=== PATIENT | female | born 1975 | race Two or more races ===

== ENCOUNTER 2016-04-27 12:25 | Emergency (ER) | payer MEDICAID ==
[~2016-04-27] VITALS: Ht 160 cm; Wt 81.6 kg
[~2016-04-27 12:25] MED LIST: ADVIL100 MG ORAL; ALPRAZOLAM0.5 M2 ORAL; ASPIR 8181 MG ORAL; ATIVAN1 MG ORAL; ATIVAN2 MG PO; ATIVAN4 MG/1 ML IJ; BENADRYL25 MG ORAL; CARDIZEM30 MG ORAL; COLACE100 MG PO; IBUPROFEN600 MG ORAL; KLONOPIN1 MG ORAL; KLONOPIN1 MG PO; LAMICTAL25 MG ORAL; LAMOTRIGINE50 MG ORAL; LORAZEPAM1 MG PO; NORCO 5-325 TA1 EACH ORAL; NORCO 5-325 TA1 EACH PO; ORTHO TRI-CYCL1 EAC1 PO; PRILOSEC10 MG PO; SEROQUEL50 MG ORAL; SERTRALINE HCL25 MG PO; ZONEGRAN100 MG ORAL; [UNRECOGNIZED DRUG - OTHER] PO
[2016-04-27 13:26] LABS: BASOPHILS % (AUTO) 1.1 % (0.0-2.0); EOSINOPHILS % (AUTO) 1.5 % (0.0-3.0); LYMPHOCYTES % (AUTO) 32.1 % (20.0-45.0); MEAN CORPUSCULAR HEMOGLOBIN 29.1 PG (27.0-31.0); MEAN CORPUSCULAR HGB CONC 33.2 G/DL (32.0-36.0); MEAN CORPUSCULAR VOLUME 88 FL (80-99); MEAN PLATELET VOLUME 6.3 FL (6.5-10.1); MONOCYTES % (AUTO) 6.5 % (1.0-10.0); NEUTROPHILS % (AUTO) 58.9 % (45.0-75.0); PLATELET COUNT 273 K/UL (150-450); RED BLOOD COUNT 5.04 M/UL (4.20-5.40); RED CELL DISTRIBUTION WIDTH 12.3 % (11.6-14.8); WHITE BLOOD COUNT 4.9 K/UL (4.8-10.8)
[2016-04-27 13:44] LABS: ALANINE AMINOTRANSFERASE 28 U/L (3-33); ALBUMIN/GLOBULIN RATIO 1.3 (1.0-2.7); ANION GAP 16 (5-15); ASPARTATE AMINO TRANSFERASE 25 U/L (5-40); CALCIUM 9.7 mg/dL (8.6-10.2); CARBON DIOXIDE 23 mEQ/L (20-30); CHLORIDE 101 mEQ/L (98-107); CREATININE 0.8 mg/dL (0.5-0.9); GLOMERULAR FILTRATION RATE > 60 mL/min (>60); HEMOLYSIS 21; POTASSIUM 4.1 mEQ/L (3.4-4.9); SODIUM 140 mEQ/L (135-145); TOTAL PROTEIN 7.3 g/dL (6.6-8.7)
[2016-04-27 13:52] LABS: TROPONIN I < 0.30 ng/mL (<=0.30)
[2016-04-27 14:00] VITALS: BP 105/60
[2016-04-27 14:24] LABS: CKMB 2.3 ng/mL (< 3.8)
--- NOTE | 2016-04-27 14:29 | Diagnostic Imaging Report ---
Indication: Chest Pain Comparison: 06/06/15 A single view chest radiograph was obtained. Findings: Cardiomediastinal appearance is within normal limits for age. Pulmonary vascularity is appropriate. The diaphragmatic contour is smooth and costophrenic angles are sharp. No pleural effusions are identified. The bones are unremarkable. Impression: No acute findings
[2016-04-27] MEDS ORDERED: Ketorolac 30mg Inj IV ONE (14:30)
--- NOTE | 2016-04-27 14:38 | Emergency Room Report ---
History of Present Illness General Chief Complaint: Chest Pain Source: Patient Present Illness HPI Patient presents with several complaints Main complaint was chest pain midsternal and left upper chest Denies any shortness of breath Pain has been ongoing for the past several days off-and-on Patient was also palpating a lymph node in the right neck area Patient also complained of left arm neuropathy Patient had mentioned discomfort in her left breast as well however after further discussion and after prolonged observation patient reports that she had a mammogram her physician that showed a mass however does not have the report of any further information Patient denies any recent travel denies any abdominal pain patient reports history of seizures which she takes Ativan for and lamictal Allergies: Coded Allergies: Dairy (Verified Allergy, Unknown, 12/23/15) MORPHINE (Verified Allergy, Unknown, Itching, 12/22/15) Whole Milk (Verified Allergy, Unknown, 12/23/15) Patient History Past Medical History: see triage record Pertinent Family History: none Last Menstrual Period: 2005--hysterectomy Now: No Reviewed Nursing Documentation: PMH: Agreed, PSxH: Agreed Nursing Documentation-PMH Past Medical History: No History, Except For 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 Hx Hypertension: No Hx Pacemaker: No Hx Asthma: No Hx COPD: No Hx Diabetes: No Hx Cancer: Yes - ovarian Hx Gastrointestinal Problems: No Hx Neurological Problems: Yes - meningitis Hx Cerebrovascular Accident: Yes Hx Meningitis: Yes Hx Seizures: Yes - 12/20/15 Hx Epilepsy: Yes Hx Headaches: Yes Hx Weakness: Yes Review of Systems All Other Systems: negative except mentioned in HPI Physical Exam Vital Signs Date Time Temp Pulse Resp B/P Pulse Ox O2 Delivery O2 Flow Rate FiO2 04/27/16 12:27 97.5 86 18 155/84 98 Room Air Sp02 EP Interpretation: reviewed, normal General Appearance: well appearing, no apparent distress Head: normocephalic, atraumatic Eyes: bilateral eye EOMI, bilateral eye PERRL ENT: hearing grossly normal, normal pharynx, TMs + canals normal, uvula midline Neck: full range of motion, supple, no meningismus, no bony tend Respiratory: lungs clear, normal breath sounds, no rhonchi, no respiratory distress, no retraction, no accessory muscle use Cardiovascular #1: normal peripheral pulses, regular rate, rhythm, no edema, no gallop, no JVD, no murmur Gastrointestinal: normal bowel sounds, non tender, soft, no mass, no organomegaly, non-distended, no guarding, no hernia, no pulsatile mass, no rebound Genitourinary: no CVA tenderness Musculoskeletal: normal inspection Neurologic: oriented x3, responsive, 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, motor strength/ tone normal, sensory intact Psychiatric: mood/affect normal Skin: normal color, no rash, warm/dry Lymphatic: other - Isolated small right posterior cervical lymph node palpable Medical Decision Making Diagnostic Impression: Primary Impression: Chest pain Additional Impression: lymphadenopathy ER Course Patient had fairly extensive workup initiated including blood work and imaging study Chest x-ray was normal blood work is also at baseline levels Patient has several different complaints, thus far with the physical exam and the history no obvious acute emergent process has been identified Please note that at time of discharge the patient also states that she now remembers having a mammogram in the past 6 months on the left breast, that did show a mass she states that she was seen by her physician after this and isn't sure of the specifics followup Patient was having encouraged to obtain the results of a mammogram and have further outpatient referral Patient rested comfortably throughout her stay in the emergency room at the time of disposition as the IV was being removed patient sustained what was documented by the nursing staff as a 20 second possible seizure, Patient does have a history of seizure disorder and is on medications for that Was observed for further until patient was more oriented And allow for discharge for close outpatient followup Labs Test 04/27/16 13:05 White Blood Count 4.9 K/UL (4.8-10.8) Red Blood Count 5.04 M/UL (4.20-5.40) Hemoglobin 14.7 G/DL (12.0-16.0) Hematocrit 44.3 % (37.0-47.0) Mean Corpuscular Volume 88 FL (80-99) Mean Corpuscular Hemoglobin 29.1 PG (27.0-31.0) Mean Corpuscular Hemoglobin Concent 33.2 G/DL (32.0-36.0) Red Cell Distribution Width 12.3 % (11.6-14.8) Platelet Count 273 K/UL (150-450) Mean Platelet Volume 6.3 FL (6.5-10.1) Neutrophils (%) (Auto) 58.9 % (45.0-75.0) Lymphocytes (%) (Auto) 32.1 % (20.0-45.0) Monocytes (%) (Auto) 6.5 % (1.0-10.0) Eosinophils (%) (Auto) 1.5 % (0.0-3.0) Basophils (%) (Auto) 1.1 % (0.0-2.0) Sodium Level 140 mEQ/L (135-145) Potassium Level 4.1 mEQ/L (3.4-4.9) Chloride Level 101 mEQ/L (98-107) Carbon Dioxide Level 23 mEQ/L (20-30) Anion Gap 16 (5-15) Blood Urea Nitrogen 16 mg/dL (7-23) Creatinine 0.8 mg/dL (0.5-0.9) Estimat Glomerular Filtration Rate > 60 mL/min (>60) Glucose Level 96 mg/dL (74-106) Calcium Level 9.7 mg/dL (8.6-10.2) Total Bilirubin 0.3 mg/dL (0.0-1.2) Aspartate Amino Transf (AST/SGOT) 25 U/L (5-40) Alanine Aminotransferase (ALT/SGPT) 28 U/L (3-33) Alkaline Phosphatase 128 U/L (35-104) Total Creatine Kinase 97 U/L (26-140) Creatine Kinase MB 2.3 ng/mL (< 3.8) Creatine Kinase MB Relative Index 2.3 Troponin I < 0.30 ng/mL (<=0.30) Pro-B-Type Natriuretic Peptide 35 pg/mL (0-125) Total Protein 7.3 g/dL (6.6-8.7) Albumin 4.2 g/dL (3.5-5.2) Globulin 3.1 g/dL Albumin/Globulin Ratio 1.3 (1.0-2.7) EKG Diagnostic Results Rate: normal Rhythm: NSR ST Segments: no acute changes Rhythm Strip Diag. Results EP Interpretation: yes Rate: 74 Rhythm: NSR, no PVC's, no ectopy Chest X-Ray Diagnostic Results EP Interpretation: Yes Findings: no consolidation, no effusion, no pneumothorax Number of Views: 1 Last Vital Signs Date Time Temp Pulse Resp B/P Pulse Ox O2 Delivery O2 Flow Rate FiO2 04/27/16 14:00 67 16 105/60 100 Room Air 04/27/16 12:27 97.5 Status: improved Disposition: HOME, SELF-CARE Condition: Improved Referrals: [facility]ERR[facility] (PCP) Patient Instructions: Nonspecific Chest Pain, Lymphadenopathy Additional Instructions: Patient is provided with the discharge instructions notified to follow up with primary doctor in the next 2-3 days otherwise return to the er with any worsening symptoms. DIANDRA PEDERSEN D.O. Apr 27, 2016 14:38
[2016-04-27 15:40] VITALS: BP 118/71
[2016-04-27 16:30] VITALS: BP 118/71
--- NOTE | 2016-05-25 15:21 | Cardiology Report ---
APPROVED REPORT EKG Measurement Heart [id number] Normal sinus rhythm Possible Anterior infarct, age undetermined Abnormal ECG
== END 2016-04-27 16:30 | disposition home or self-care (01) ==
LOC: EMR 13:20
DX: R07.9 Chest pain, unspecified (principal); R59.1 Generalized enlarged lymph nodes; G40.909 Epilepsy, unspecified, not intractable, without status epilepticus; Z86.61 Personal history of infections of the central nervous system; Z86.73 Personal history of transient ischemic attack (TIA), and cerebral infarction without residual deficits; Z90.710 Acquired absence of both cervix and uterus; Z88.6 Allergy status to analgesic agent; Z91.011 Allergy to milk products
CPT/HCPCS: 36415; 71010; 80053; 82550; 82553; 82962; 83880; 84484; 85025; 93005; 96374; 99284; J1885

== ENCOUNTER 2016-12-24 21:57 | Emergency (ER) | payer MEDICAID ==
[~2016-12-24] VITALS: Ht 162.6 cm; Wt 75.3 kg
[2016-12-24 22:35] VITALS: BP 130/79
[2016-12-24 23:00] VITALS: BP 135/80
[2016-12-24] MEDS ORDERED: GABAPENTIN600 MG ORAL (23:05)
[2016-12-24 23:15] VITALS: BP 135/80
--- NOTE | 2016-12-25 00:30 | Emergency Room Report ---
History of Present Illness General Chief Complaint: Pain Source: Patient Present Illness HPI [id number] with 1 week foot progressed to leg pain/"pins and needles." No trauma No history of gout, DVT History of seizures Saw neurologist yesterday, prescribed Neurontin. Pharmacist didnt fill it because "its for seizures." So didnt fill it. 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 Hx Hypertension: No Hx Pacemaker: No Hx Asthma: No Hx COPD: No Hx Diabetes: No Hx Cancer: Yes - ovarian,TOTAL HYSTERECTOMY IN 2005 Hx Gastrointestinal Problems: No Hx Neurological Problems: Yes - meningitis Hx Cerebrovascular Accident: Yes Hx Meningitis: Yes Hx Seizures: Yes - 12/20/15 Hx Epilepsy: Yes Hx Headaches: Yes Hx Weakness: Yes Review of Systems All Other Systems: negative except mentioned in HPI Physical Exam Vital Signs Date Time Temp Pulse Resp B/P (MAP) Pulse Ox O2 Delivery O2 Flow Rate FiO2 12/24/16 22:19 97.3 82 16 122/84 99 Room Air Sp02 EP Interpretation: reviewed, normal General Appearance: normal inspection, well appearing, no apparent distress, alert Head: atraumatic ENT: normal ENT inspection, hearing grossly normal, normal voice Neck: normal inspection, full range of motion, supple, no bony tend Respiratory: normal inspection, lungs clear, normal breath sounds, no respiratory distress, no retraction, no wheezing Cardiovascular #1: regular rate, rhythm, no edema Gastrointestinal: normal inspection, normal bowel sounds, non tender, soft, no guarding, no hernia Genitourinary: no CVA tenderness Musculoskeletal: normal inspection, back normal, normal range of motion, Brittany' s Sign negative Neurologic: normal inspection, alert, oriented x3, responsive, 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 Afebrile. Atraumatic Glucose 115 Likely neuropathy given "pins and needles", progressive sharp pain No obvious focal neuro deficits to suggest subacute or acute CVA No calf swelling to suggest DVT/PE Rx Gabapentin DC home Last Vital Signs Date Time Temp Pulse Resp B/P (MAP) Pulse Ox O2 Delivery O2 Flow Rate FiO2 12/24/16 23:15 98.0 80 19 135/80 99 Room Air Status: improved Disposition: HOME, SELF-CARE Condition: Improved Scripts Gabapentin* (GABAPENTIN*) 600 Mg Tablet 600 MG ORAL THREE TIMES A DAY for 30 Days, #90 TAB Prov: LYNETTE WEEMS M.D. 12/24/16 Referrals: [facility]ERR[facility] (PCP) Patient Instructions: Neuropathic Pain Additional Instructions: - Take Gabapentin as prescribed and followup with your doctor for right leg pain LYNETTE WEEMS M.D. Dec 25, 2016 00:30
== END 2016-12-24 23:15 | disposition home or self-care (01) ==
LOC: EMR 22:23
DX: G62.9 Polyneuropathy, unspecified (principal); Z85.43 Personal history of malignant neoplasm of ovary; Z90.710 Acquired absence of both cervix and uterus; Z86.73 Personal history of transient ischemic attack (TIA), and cerebral infarction without residual deficits; Z86.61 Personal history of infections of the central nervous system
CPT/HCPCS: 82962; 99283

== ENCOUNTER 2016-12-28 06:23 | Inpatient (IN) | payer MEDICAID ==
[~2016-12-28] VITALS: Ht 162.6 cm; Wt 75.7 kg
[2016-12-28] VITALS (9 sets, daily range): BP systolic 125–143; BP diastolic 61–119
[~2016-12-28 06:23] MED LIST changes: +GABAPENTIN600 MG ORAL
[2016-12-28 07:59] LABS: BASOPHILS % (AUTO) 0.9 % (0.0-2.0); EOSINOPHILS % (AUTO) 1.4 % (0.0-3.0); LYMPHOCYTES % (AUTO) 26.5 % (20.0-45.0); MEAN CORPUSCULAR HGB CONC 33.6 G/DL (32.0-36.0); MEAN CORPUSCULAR VOLUME 89 FL (80-99); MEAN PLATELET VOLUME 6.1 FL (6.5-10.1); MONOCYTES % (AUTO) 5.2 % (1.0-10.0); NEUTROPHILS % (AUTO) 66.1 % (45.0-75.0); PLATELET COUNT 284 K/UL (150-450); RED BLOOD COUNT 4.88 M/UL (4.20-5.40); WHITE BLOOD COUNT 4.9 K/UL (4.8-10.8)
[2016-12-28] MEDS ORDERED: Lidocaine 1% MPF 10mg/ml 5ml ONE (08:00)
[2016-12-28 08:09] LABS: PROTHROMBIN TIME 10.4 SEC (9.30-11.50)
[2016-12-28 08:17] LABS: ALANINE AMINOTRANSFERASE 26 U/L (3-33); ALBUMIN/GLOBULIN RATIO 1.5 (1.0-2.7); ANION GAP 12 (5-15); ASPARTATE AMINO TRANSFERASE 22 U/L (5-40); CALCIUM 9.2 mg/dL (8.6-10.2); CARBON DIOXIDE 26 mEQ/L (20-30); CHLORIDE 103 mEQ/L (98-107); CHOLESTEROL 141 mg/dL (< 200); CHOLESTEROL/HDL RATIO 2.8 (3.3-4.4); CREATININE 0.8 mg/dL (0.5-0.9); GLOMERULAR FILTRATION RATE > 60 mL/min (>60); HEMOLYSIS 3; LDL CHOLESTEROL CALC 75 mg/dL (60-99); POTASSIUM 4.9 mEQ/L (3.4-4.9); SODIUM 141 mEQ/L (135-145)
--- NOTE | 2016-12-28 09:32 | Diagnostic Imaging Report ---
Indications: Headache and left-sided weakness Technique: Spiral acquisitions obtained through the brain. Angled axial and coronal 5 x 5 mm slices were reconstructed. Total dose length product 1369 mGycm. CTDI vol(s) 70 mGy. Dose reduction achieved using automated exposure control Comparison: 12/20/2015 Findings: Again demonstrated is a calcification at the left posterior frontal bullock-white junction. A second calcification is seen probably within the left temporal cortex but could be immediately adjacent, within the dura.. No acute hemorrhage or edema. No mass effect or midline shift. Normal sized ventricles and extra-axial CSF spaces. The calvarium is intact. Visualized orbits and sinuses are unremarkable. 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 The CT scanner at [facility] is accredited by the [employer] and the scans are performed using protocols designed to limit radiation exposure to as low as reasonably achievable to attain images of sufficient resolution adequate for diagnostic evaluation.
--- NOTE | 2016-12-28 10:50 | Diagnostic Imaging Report ---
Indication: Left-sided weakness, history of seizures Technique: IV administration nonionic contrast. Arterial phase acquisitions obtained through the brain. Delayed phase images gated not be obtained, as patient developed seizures during the exam Multiplanar and 3-D reconstructions were generated. Total dose length product 1310 mGycm. CTDIvol(s) 16, 148, 54 mGy. Radiation dose was minimized using automated exposure control Comparison: Reference made to noncontrast CT brain 3 hours earlier Findings: Dominant right, smaller caliber left vertebral artery demonstrated. These are both patent, nonstenotic. Patent and nonstenotic bilateral PICA. The distal right PICA is somewhat prominent in caliber, and at the level of the cerebellar vermis is actually larger in caliber than it is proximally. Both AICA origins are visualized. Patent nonstenotic basilar artery. Patent nonstenotic bilateral superior cerebellar arteries. Absent right P1 segment, origin of the right posterior cerebral artery is demonstrated. This is patent, as are the proximal branches. Patent nonstenotic left P1 and proximal branches. Patent left posterior communicating artery. The bilateral internal carotid arteries are patent, without significant plaque or stenosis. Patent nonstenotic bilateral A1 segments and proximal anterior cerebral artery branch vessels. No anterior communicating artery is demonstrated. Patent bilateral M1 segments and proximal middle cerebral artery branches. No evidence of vascular malformation. No evidence of aneurysm. Patent deep and superficial veins and venous sinuses. There is variant anatomy of the superior sagittal sinus, which courses laterally well cephalad of the torcular Herophili, and drains directly into the sigmoid sinus. Neither transverse sinus is demonstrated No unusual parenchymal contrast enhancement is demonstrated. No evidence of hypoperfusion. Impression: Negative for evidence of intracranial proximal cerebrovascular insufficiency Unusually prominent right PICA, with in particular prominent caliber distally. Probably just normal variant anatomy, but the possibility of an occult vascular malformation should be considered Variant [employer] [employer] [place] anatomy, as described Variant venous sinus anatomy, as described Findings discussed by phone with Dr. Medrano in the emergency room at the time of interpretation The CT scanner at [facility] is accredited by the [employer] and the scans are performed using protocols designed to limit radiation exposure to as low as reasonably achievable to attain images of sufficient resolution adequate for diagnostic evaluation.
--- NOTE | 2016-12-28 10:55 | Emergency Room Report ---
History of Present Illness General Chief Complaint: General Complaint Source: Patient, Family Member Present Illness HPI 41-year-old female presents to ED status post seizure. Patient states that she had a seizure early this morning approximately around 3 AM as noted by her daughter. Patient states she only takes Klonopin for seizures now. Patient is stating that since the seizures she is having slurred speech with facial droop and left arm and leg weakness. Symptoms started approximately 3-1/2 hours prior to arrival. Patient notes history of prior CVA. Takes aspirin and statin. Patient denies any headaches, denies any chest pain or shortness of breath. No other aggravating relieving factors. Denies any other associated symptoms Allergies: Coded Allergies: Dairy (Verified Allergy, Unknown, 12/23/15) LEVETIRACETAM (Verified Allergy, Unknown, 12/28/16) MORPHINE (Verified Allergy, Unknown, Itching, 12/22/15) PHENYTOIN (Verified Allergy, Unknown, 12/28/16) Whole Milk (Verified Allergy, Unknown, 12/23/15) Patient History Past Medical History: CVA/TIA, seizures, psych hx Past Surgical History: hysterectomy Pertinent Family History: none Social History: Denies: smoking, alcohol use, drug use Last Menstrual Period: 2005 Now: No : 2 Para: 2 Immunizations: UTD Reviewed Nursing Documentation: PMH: Agreed, PSxH: Agreed Nursing Documentation-PMH 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 Hx Hypertension: No Hx Pacemaker: No Hx Asthma: No Hx COPD: No Hx Diabetes: No Hx Cancer: Yes - ovarian,TOTAL HYSTERECTOMY IN 2005 Hx Gastrointestinal Problems: No Hx Neurological Problems: Yes - meningitis Hx Cerebrovascular Accident: Yes Hx Meningitis: Yes Hx Seizures: Yes - 12/20/15 Hx Epilepsy: Yes Hx Headaches: Yes Hx Weakness: Yes Review of Systems All Other Systems: negative except mentioned in HPI Physical Exam Vital Signs Date Time Temp Pulse Resp B/P (MAP) Pulse Ox O2 Delivery O2 Flow Rate FiO2 12/28/16 06:32 98.1 69 11 125/70 100 Room Air Sp02 EP Interpretation: reviewed, normal General Appearance: no apparent distress, alert, GCS 15, non-toxic Head: normocephalic, atraumatic Eyes: bilateral eye normal inspection, bilateral eye PERRL ENT: hearing grossly normal, normal pharynx, no angioedema, normal voice Neck: full range of motion, supple/symm/no masses Respiratory: chest non-tender, lungs clear, normal breath sounds, speaking full sentences Cardiovascular #1: regular rate, rhythm, no edema Cardiovascular #2: 2+ carotid (R), 2+ carotid (L), 2+ radial (R), 2+ radial (L) , 2+ dorsalis pedis (R), 2+ dorsalis pedis (L) Gastrointestinal: normal bowel sounds, non tender, soft, non-distended, no guarding, no rebound Rectal: deferred Genitourinary: normal inspection, no CVA tenderness Musculoskeletal: back normal, non-tender Neurologic: alert, oriented x3, responsive, facial droop, motor weakness, sensory deficit Psychiatric: judgement/insight normal, memory normal, mood/affect normal, no suicidal/homicidal ideation Reflexes: 3+ bicep (R), 3+ bicep (L), 3+ tricep (R), 3+ tricep (L), 3+ knee (R) , 3+ knee (L) Skin: normal color, no rash, warm/dry, well hydrated Lymphatic: no adenopathy Procedures Critical Care Time Critical Care Time i. I feel this is a highly complex case requiring extensive working including EKG/Rhythm strip, Xray/CT/US, Blood/urine lab work, repeat exams while in ED, and administration of strong opiates/narcotics for pain control, admission to hospital or close patient follow up. Total time: 30 min bedside evaluation and treatment excludes procedures (EKG). Reason for critical care: CVA, seizure, left-sided facial droop, left-sided paralysis Possible complications: hypotension, hypertension, WA, shock, arrhythmias, metabolic acidosis, end organ damage, respiratory failure. Interventions: Labs, IV fluids, EKG, CT head, CTA, central line, consultation with stroke team Course: Patient brought in status post seizure. Patient then mentioned she had left-sided facial droop and left-sided paralysis since the seizure approximately 3 and half hours prior to arrival. Patient had difficult IV access. CT head shows no acute stroke. Discussed with stroke team and [facility]. Recommend CTA to rule out large vessel disease. Patient had difficult IV access multiple attempts made. I placed a right femoral central line. CTA shows no evidence of large vessel disease. Stroke team at [facility] agreed that patient does not require transfer. Given aspirin here Consultations: nursing staff, EMS, family Performed by: Dr Medrano Tolerated well condition = serious j. because of unstable vital signs this patient had a condition that could potentially threaten life or limb. I feel this is a critical patient who required my full attention while patient was considered critical. Total Critical Care Time excluding procedures was greater than 35 minutes Central Line Central Line : Consent: Emergent Central Line Lumen: triple Maximal Sterile Barrier Tech: yes cap, yes mask, yes sterile gown, yes sterile gloves, yes large sterile sheet, yes hand hygiene, yes chlorhexidine prep Central Line Postion: femoral (R) Anesthesia: Lidocaine Complications: none Central Line Post Position: sutured, good blood return Attempts: One Patient Tolerated: Well Complications: None Medical Decision Making Diagnostic Impression: Primary Impression: CVA (cerebral vascular accident) Qualified Codes: I63.9 - Cerebral infarction, unspecified Additional Impression: Seizure disorder Ruled Out: Angioedema ER Course Hospital Course 54-year-old F presents ED complaining of left-sided chest pain, numbess in LUE and LLE Differential diagnoses include: WA/unstable angina, SVT/Vtach/AFib, CVA/TIA Clinical course Patient placed on stretcher. on panel monitor. After initial history and physical I ordered labs, EKG, chest x-ray, and CT head As per my assessment NIH stroke scale of 8 labs reviewed- electrolytes ok, troponins negative, no leukocytosis, Hb/Hct stable patient has difficult IV access multiple peripheral attempts made. Right femoral line placed EKG - NSR, no acute changes interpreted by me CT brain - no acute process noted CTA Brain - no signs of large vessel disease (recommended by [facility] stroke team) Discussed findings with stroke team at [facility]. Agreed that patient is out of the window for thrombolytic therapy upon arrival. Given aspirin in ED. Case discussed with Dr. Ames and he agreed to accept the patient to his service for further care and support I. I feel this is a highly complex case requiring extensive working including EKG/Rhythm strip, Xray/CT/US, Blood/urine lab work, repeat exams while in ED, and administration of strong opiates/narcotics for pain control, admission to hospital or close patient follow up. Diagnosis - CVA, seizure admitted to telemetry in serious condition Labs Test 12/28/16 07:50 White Blood Count 4.9 K/UL (4.8-10.8) Red Blood Count 4.88 M/UL (4.20-5.40) Hemoglobin 14.6 G/DL (12.0-16.0) Hematocrit 43.6 % (37.0-47.0) Mean Corpuscular Volume 89 FL (80-99) Mean Corpuscular Hemoglobin 30.0 PG (27.0-31.0) Mean Corpuscular Hemoglobin Concent 33.6 G/DL (32.0-36.0) Red Cell Distribution Width 12.0 % (11.6-14.8) Platelet Count 284 K/UL (150-450) Mean Platelet Volume 6.1 FL (6.5-10.1) Neutrophils (%) (Auto) 66.1 % (45.0-75.0) Lymphocytes (%) (Auto) 26.5 % (20.0-45.0) Monocytes (%) (Auto) 5.2 % (1.0-10.0) Eosinophils (%) (Auto) 1.4 % (0.0-3.0) Basophils (%) (Auto) 0.9 % (0.0-2.0) Prothrombin Time 10.4 SEC (9.30-11.50) Prothromb Time International Ratio 1.0 (0.9-1.1) Activated Partial Thromboplast Time 27 SEC (23-33) Sodium Level 141 mEQ/L (135-145) Potassium Level 4.9 mEQ/L (3.4-4.9) Chloride Level 103 mEQ/L (98-107) Carbon Dioxide Level 26 mEQ/L (20-30) Anion Gap 12 (5-15) Blood Urea Nitrogen 18 mg/dL (7-23) Creatinine 0.8 mg/dL (0.5-0.9) Estimat Glomerular Filtration Rate > 60 mL/min (>60) Glucose Level 101 mg/dL (74-106) Calcium Level 9.2 mg/dL (8.6-10.2) Total Bilirubin 0.3 mg/dL (0.0-1.2) Aspartate Amino Transf (AST/SGOT) 22 U/L (5-40) Alanine Aminotransferase (ALT/SGPT) 26 U/L (3-33) Alkaline Phosphatase 114 U/L (35-104) Total Protein 7.0 g/dL (6.6-8.7) Albumin 4.3 g/dL (3.5-5.2) Globulin 2.7 g/dL Albumin/Globulin Ratio 1.5 (1.0-2.7) Triglycerides Level 78 mg/dL (< 150) Cholesterol Level 141 mg/dL (< 200) LDL Cholesterol 75 mg/dL (60-99) HDL Cholesterol 50 mg/dL (> 60) Cholesterol/HDL Ratio 2.8 (3.3-4.4) EKG Diagnostic Results Rate: normal Rhythm: NSR ST Segments: no acute changes ASA given to the pt in ED: No Rhythm Strip Diag. Results EP Interpretation: yes Rhythm: NSR, no PVC's, no ectopy CT/MRI/US Diagnostic Results CT/MRI/US Diagnostic Results #1: Imaging Test Ordered: CT Head Impression no acute process CT/MRI/US Diagnostic Results #2: Imaging Test Ordered: CTA Brain Impression no evidence of large vessel occlusion Last Vital Signs Date Time Temp Pulse Resp B/P (MAP) Pulse Ox O2 Delivery O2 Flow Rate FiO2 12/28/16 10:05 69 20 134/119 100 Room Air 12/28/16 08:30 97.9 Status: improved Disposition: HOME, SELF-CARE Condition: Stable Referrals: [facility] (PCP) MARTIN MEDRANO M.D. Dec 28, 2016 10:55
[2016-12-28] MEDS ORDERED: Ketorolac 30mg Inj IV ONE (11:45)
[2016-12-28] MEDS ORDERED: Topiramate 100mg tab ORAL SCH (17:00)
[2016-12-28] MEDS: LORazepam Inj 2mg/ml 1ml IV PRN (17:36)
[2016-12-28] MEDS ORDERED: Valproate Sodium INJ 1,000 MG in D5W 55 ML IVPB ONE (19:30)
[2016-12-28 19:58] LABS: BILIRUBIN,DIRECT 0.1 mg/dL (0.1-0.3); TOTAL PROTEIN 5.6 g/dL (6.6-8.7)
[2016-12-28] MEDS: Norco 5mg/325mg tab ORAL PRN (21:55)
[2016-12-29] VITALS (7 sets, daily range): BP systolic 101–151; BP diastolic 56–83
[2016-12-29] MEDS ORDERED: Valproate Sodium INJ 500 MG in D5W 55 ML IVPB SCH (09:00)
[2016-12-29] MEDS: Dyna-Hex 2% Top Sol 2oz TOPIC SCH ×2 (10:05)
[2016-12-29] MEDS: Aspirin Baby 81mg ORAL SCH (10:06)
[2016-12-29] MEDS: Norco 5mg/325mg tab ORAL PRN (10:06)
--- NOTE | 2016-12-29 16:37 | Cardiology Report ---
APPROVED REPORT EKG Measurement Heart [id number] Normal sinus rhythm Normal ECG
[2016-12-29] MEDS ORDERED: Topiramate 25mg tab ORAL SCH (18:00)
--- NOTE | 2016-12-29 18:05 | Neurology Progress Note ---
Objective Physical Exam Last Vital Signs Date Time Temp Pulse Resp B/P (MAP) Pulse Ox O2 Delivery O2 Flow Rate FiO2 12/29/16 16:00 98.4 74 17 123/56 98 Nasal Cannula 2.0 Laboratory Tests Test 12/28/16 19:20 12/29/16 05:50 Total Bilirubin 0.3 mg/dL (0.0-1.2) Direct Bilirubin 0.1 mg/dL (0.1-0.3) Aspartate Amino Transf (AST/SGOT) 18 U/L (5-40) Alanine Aminotransferase (ALT/SGPT) 20 U/L (3-33) Alkaline Phosphatase 90 U/L (35-104) Total Protein 5.6 g/dL (6.6-8.7) L Albumin 3.5 g/dL (3.5-5.2) Valproic Acid (Depakene) Level 39 ug/mL (50-100) L Impression/Recommendations Recommendations #[id number] CHRISTOPH LYLE Dec 29, 2016 18:05
--- NOTE | 2016-12-29 19:26 | Nephrology Progress Note ---
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 (7) depression anxiety (8) Neuropathy Plan H&P dictated # [id number] Subjective Constitutional: Reports: weakness HEENT: Reports: other - headache Genitourinary: Denies: no symptoms, burning, discharge, frequency, flank pain, hematuria, incontinence, pain, urgency, other Subjective In bed, complains of headache and left sided weakness Objective Objective Last 24 Hour Vital Signs Date Time Temp Pulse Resp B/P (MAP) Pulse Ox O2 Delivery O2 Flow Rate FiO2 12/29/16 16:00 59 12/29/16 16:00 98.4 74 17 123/56 98 Nasal Cannula 2.0 12/29/16 12:00 98.1 91 16 151/80 98 Nasal Cannula 2.0 12/29/16 12:00 73 12/29/16 08:00 56 12/29/16 08:00 97.9 71 18 127/83 100 Nasal Cannula 2.0 12/29/16 04:00 97.0 49 18 101/61 100 Nasal Cannula 2.0 12/29/16 04:00 50 12/29/16 00:00 49 12/29/16 00:00 97.0 70 18 114/80 99 Nasal Cannula 2.0 12/28/16 20:00 96.8 88 18 138/74 100 Nasal Cannula 2.0 12/28/16 20:00 64 Intake and Output 12/29/16 12/30/16 19:00 07:00 Intake Total 620 ml Balance 620 ml Intake Oral 620 ml # Voids 4 Laboratory Tests 12/29/16 05:50: Valproic Acid (Depakene) Level 39L Height (Feet): 5 Height (Inches): 4.00 Weight (Pounds): 167 General Appearance: no apparent distress, alert EENT: PERRL/EOMI, normal ENT inspection Neck: non-tender, normal alignment Cardiovascular: normal rate, regular rhythm, no JVD Respiratory/Chest: lungs clear, normal breath sounds Abdomen: non tender, soft, no organomegaly Extremities: non-tender, normal inspection Neurologic: alert, oriented x 3, responsive, normal mood/affect Egwu,Jahaira Tinajero Dec 29, 2016 19:26
[2016-12-29] MEDS: Hydromorphone 0.5mg/0.5ml inj IVP PRN (22:03)
[2016-12-30 03:43] VITALS: BP 103/51
[2016-12-30 08:00] VITALS: BP 108/75
[2016-12-30] MEDS: Hydromorphone 0.5mg/0.5ml inj IVP PRN (08:04)
[2016-12-30] MEDS: Topiramate 25mg tab ORAL SCH ×2 (08:05→21:17)
[2016-12-30] MEDS: Aspirin Baby 81mg ORAL SCH (08:05)
[2016-12-30] MEDS: Dyna-Hex 2% Top Sol 2oz TOPIC SCH (08:07)
[2016-12-30] MEDS: LORazepam Inj 2mg/ml 1ml IV PRN (08:23)
--- NOTE | 2016-12-30 08:46 | Consultation ---
DATE OF CONSULTATION: 12/29/2016 NEUROLOGICAL CONSULTATION REQUESTING PHYSICIAN: Miguel Angel Ames M.D. History Of Present Illness: This is a 41 years old female seen in neurological consultation to evaluate the exacerbation of seizures. The patient presented with complex history of medical issues indicating that at the age of 5 she had meningitis following which she started to develop intermittent episodes of chest pain followed by palpitation lasting up to five minutes episodes. With time, these episodes would go into a generalized seizure activity. At the age of 20, she started to develop episodes of generalized seizure activity. She was diagnosed with neurocysticercosis, cysticercosis, frequency of attacks of seizure episodes were five to six per year. She was allergic to Dilantin and Keppra. Recently, started on Lamictal, but this would give her some speech abnormality and body weakness. So, she stopped taking it and was told to use Klonopin 1 mg at bedtime. The patient is on Klonopin since 2005 when diagnosed of ovarian cancer. She underwent a total hysterectomy. This exacerbated her seizure activities and Klonopin 1 mg was helping with control of seizures. On the day of admission, she woke up at 3 a.m., developed a generalized seizure, and noticed that following which she could not move her left side. The patient now informs me she had an acute stroke, which was attributed to cysticercosis in April 2016. With physical therapy, symptoms gradually resolved. Following initial seizure this Tuesday, she remained with left-sided weakness. The patient was brought to emergency room, had seizure during performance of CT of the brain. The patient's vital signs on admission were stable, although nighttime she had bradycardia in 50s. She was complaining of left-sided chest pain and numbness in left upper and left lower extremity. Her examination revealed facial droop and left-sided weakness, but deep tendon reflexes were brisk and symmetric. CT scan of the brain without contrast was negative for acute intracranial abnormalities. There were a left frontal and possible left temporal microcalcifications likely on the basis of old cysticercosis. No evidence of a cysticercosis noted. CT angiogram with and without contrast of the brain essentially normal, but there was unusual prominent right PICA, probably normal variant with possible occult vascular malformation to be considered. Following admission, there were two more generalized seizures. The patient was given a load of Depakote 1000 mg last night. There were no further seizure activities detected. She is maintained now on 500 mg b.i.d. and her laboratory work revealed valproic acid level of 39. Laboratory studies otherwise revealed normal Hematology, normal coagulation panel, and chemistry panel was unremarkable. The patient indicated that a year ago, she was hospitalized at [facility] for specifically workup of her poorly controlled seizure disorder and was offered to undergo a surgery, which she declined. Past Medical History: She has diabetes type 2, history of hyperlipidemia, history of ovarian CA, required total hysterectomy in year 2005, chronic seizure disorder, neurocysticercosis, and cysticercosis. The patient has history of intermittent headaches, panic attacks, and history of conversion disorder. Medications: Treatment prior to admission included aspirin, Klonopin, gabapentin presumably 600 mg t.i.d., presumably for a neuropathic right foot pain. She was given p.r.n. [place], which she indicated unable to tolerate well, ibuprofen mg, and Seroquel 50 mg as needed. ALLERGIES: Keppra, morphine, phenytoin, and whole milk. Family History: The patient indicated she has a family history of ovarian CA. For this reason, her daughter just had a baby and will undergo total hysterectomy. Review Of Systems: At this time, the patient maintains severe vertex headaches, dizziness, lack of appetite, and unable to move left side of the body. She has a recent of the left eye visual acuity abnormality. Review of previous medical records indicate the patient had episodes of left hemiplegia in the past, which was gradually resolving. She had also episodes of pseudoseizures. PHYSICAL EXAMINATION: General: A well-developed, moderately obese female, not in acute distress, lying comfortably in bed. VITAL SIGNS: Stable. Blood pressure 128/80 and respirations 14. HEENT: Head: Normocephalic. No evidence of trauma. Eyes, ears, and throat are clear. NECK: Supple. No meningeal signs. Musculoskeletal: Unremarkable. There are no deformities. Peripheral pulses 1+ symmetric. Neurologic: Mental status, fully alert and oriented x3 with no evidence of aphasia or apraxia. Cognitive function normal. Not able to describe all her symptoms. She appears to be somewhat indifferent to her left-sided hemiplegia, although would ask when expected to get improvement. Cranial Nerves II: Pupils both responding to light and accommodation. Extraocular movements full range. The patient complained of diplopia on a primary right gaze. Fundi poorly visualized. Cranial Nerves V: Decreased response to pin stimulation in left side of the face. Cranial Nerves VII: In conversation, there was no asymmetry, but when demonstrating teeth, she had a significant left facial weakness. Cranial nerves IX to XII: Tongue is in midline. Symmetric palate elevation. Motor: Revealed flaccid left upper and left lower extremity. Deep tendon reflexes 2+ bilaterally symmetric. Plantar response is flexor. No pathological responses. Sensory: Absence of pin stimulation to midline in the left arm, left leg, and left face. IMPRESSION: 1. This is a 41 years old female with a complex medical history, now presenting with exacerbation of generalized seizure activity. 2. History of partial complex seizure with secondary generalization and/or pseudoseizures. 3. Left hemiplegia/hemisensory loss including left facial with negative radiological studies. 4. History of panic attacks, conversion reaction. 5. Neurocysticercosis, chronic. RECOMMENDATIONS: 1. Recheck MRI of the brain with and without contrast. 2. Start on Topamax 25 mg b.i.d. to be titrated up to therapeutic. Meanwhile, maintain on valproic acid 500 mg b.i.d. 3. Get PT/OT. 4. Start on mobility protocol and continue with current treatment. 5. We will follow with you. Thank you for allowing me to see this interesting patient in neurological consultation. Jeremy Gallegos M.D. DR: Gutierrez JOB#: [id number] CC:
--- NOTE | 2016-12-30 08:47 | HX and Phyl Repo 2 Sig ---
DATE OF ADMISSION: 12/28/2016 INTERNAL MEDICINE HISTORY AND PHYSICAL History Of Present Illness: The patient is a 41-year-old female, who was recently discharged from the hospital due to a seizure incident. She presented to the emergency room yesterday with complaints of left-sided weakness and numbness. History includes seizure disorder, anxiety disorder, depression, and neurocysticercosis. She stated that yesterday around 3 in the morning, she awoke with an active seizure. She has tried to call out for help according to her and instantly, she felt left-sided weakness and numbness. She stated that her left side has been numb since then. She is unable to move it. She also stated that she has chest pain, nonradiating. She also complains of severe headache, shortness of breath, and abdominal pain. She stated some fever. She stated also that she did vomit about two times yesterday, no vomiting today. She has some nausea, and denies diarrhea. Past Medical History: Significant for seizure disorder, convulsion disorder with abnormal movements, neurocysticercosis, and left hemiparesis. PAST SURGICAL HISTORY: None. ALLERGIES: Allergic to Cipro, morphine, Dilantin, and . Social History: She denies smoking. No alcohol use and no illicit drug use. She lives at home. FAMILY HISTORY: Noncontributory. Review Of Systems: A full 12-point review of systems was reviewed with the patient and positives as stated in the history of present illness. PHYSICAL EXAMINATION: GENERAL: This is a 41-year-old female, in no apparent distress. Vital Signs: Blood pressure 123/56, heart rate is 59, respiratory rate is 17, temperature is 98.4 degrees, and O2 saturation is 98% on 2 liters. HEENT: Head is normocephalic and atraumatic with moist mucous membranes. Pupils are equal, round, and reactive to light and accommodation. NECK: Supple. No jugular venous distention noted. LUNGS: Clear to auscultation bilaterally. CARDIOVASCULAR: Irregular. S1 and S2. No murmurs. No gallops. Abdomen: Soft, nontender, and nondistended. Positive bowel sounds in all four quadrants. Extremities: No edema. No cyanosis. No clubbing. Left hemiparesis or left-sided weakness noted, bilateral upper and lower. NEUROLOGIC: Neurologic kwong, she is awake, alert, and oriented x3. Laboratory and diagnostic Data: CBC, white count 4.9, hemoglobin 14.6, hematocrit 43.6, and a platelet count of 284,000. BMP, sodium 141, potassium 4.9, chloride 103, bicarbonate 26, BUN 18, and creatinine 0.8. Blood glucose is 101. Radiologic finding, head CT, impression negative for acute intracranial bleed or mass effect, possible left temporal microcalcifications likely on the basis of old cysticercosis. Head CTA, impression negative for evidence of intracranial proximal cerebrovascular insufficiency. Usual prominent right PICA within particular prominent caliber distally. Probably just normal variant anatomy, but the possibility of an occult vascular malformation should be considered. Variant [place] anatomy as described. ASSESSMENT: 1. Left hemiparesis, rule out cerebrovascular accident. 2. Seizure disorder. 3. History of neurocysticercosis. 4. Depression. PLAN: Neurology consult. Pain management as needed. Psychiatric consult as well. We will monitor electrolytes and correct p.r.n. Continue home medications. Antidepressants as per Psychiatry. We will monitor the patient's overall response to treatment. Miguel Angel Ames M.D. Jahaira Braden DR: GUSTAVO JOB#: [id number] CC: RAMY
[2016-12-30 12:00] VITALS: BP 105/59
--- NOTE | 2016-12-30 12:38 | Diagnostic Imaging Report ---
Indication: History of chronic seizures, CVA with left-sided weakness, mild altered mental status Technique: sagittal T1 fast spin echo, axial T1 and T2 FLAIR PROPELLER, axial T2 FS PROPELLER, T2* GRE, axial diffusion weighted images, this coronal T2 FLAIR propeller and FSPGR [place], post contrast axial and coronal T1 FLAIR PROPELLER images. ADC and exponential ADC maps generated Comparison: Reference made to head CT 12/28/2016, brain MRI 06/09/2015 Findings: There is considerable image degradation due to susceptibility artifact from metallic dental material. This may obscure pathology. Artifact appears most of the bilateral frontal lobes, significant portions of the right temporal lobe and a significant portion of the posterior fossa on the diffusion-weighted images. The visualized portions of the brain on the diffusion-weighted images demonstrate no evidence of restricted diffusion to suggest acute infarction. The remaining sequences are somewhat less degraded, but the entire posterior fossa is nearly completely obscured on the T2-weighted images. No definite acute hemorrhage or edema. No mass effect nor midline shift. No abnormal contrast enhancement. Normal size ventricles and extra axial CSF spaces. There are a few scattered areas of T2 FLAIR hyperintensity in the deep white matter bilaterally, less well seen on the T2-weighted images. These are slightly more numerous than on the prior study. The bilateral hippocampi demonstrate normal signal, appear symmetric.. Visualized orbits and sinuses are unremarkable. . Impression: Limited exam, as described No definite evidence of acute infarct, intracranial bleed, mass effect, or contrast enhancing lesion. Nonspecific deep white matter T2 hyperintensities, slightly more numerous than on the prior study. These are nonspecific in appearance could represent small ischemic foci or foci of demyelination
--- NOTE | 2016-12-30 13:30 | Neurology Progress Note ---
Interim History Interim History ROS Limited/Unobtainable: No Complaints: headache Events: no sz noted movement L arm Objective Physical Exam Last Vital Signs Date Time Temp Pulse Resp B/P (MAP) Pulse Ox O2 Delivery O2 Flow Rate FiO2 12/30/16 12:00 97.0 81 20 105/59 100 Nasal Cannula 3.0 General: well developed, well nourished, no acute distress Head: normocophalic, atraumatic Neck: no rigidity Neurologic Exam Mental Status: awake, normal cognition, other - drowsy sedated for MRI Speech: normal speech Language: normal language, no aphasia Cranial Nerve II: fundus normal, visual valera, no papilledema Cranial Nerves III, IV, : PERRLA, EOMI, pupils Cranial Nerve V: normal facial sensations, temporales function normal, masseters function normal, pterygoids function normal Cranial Nerve VII: normal facial expressions, other - L face droop Cranial Nerve VIII: normal hearing, no nystagmus Cranial Nerve IX: normal palate elevation, gag response Cranial Nerve X: no voice hoarseness Cranial Nerve XI: SCM symmetric, trapezii function normal Cranial Nerve XII: tongue midline, no tongue atrophy/fasciculations Motor System: other - L hemiplegia with poor efforts Sensory: other - L hemisensory loss incl. L face Coordination: other Deep Tendon Reflexes: 2+ bicep (L), 2+ bicep (R), 2+ tricep (L), 2+ tricep (R) , 2+ brachioradialis (L), 2+ brachioradialis (R), 2+ knee (L), 2+ knee (R), 2+ ankle (L), 2+ ankle (R) Reflexes: flexor plantar (L), flexor plantar (R) Stance: other Gait: other Impression/Recommendations Problems: (1) chronic seizure d/o with pseudoseizures (2) Conversion disorder with abnormal movement (3) left hemiparsis/hemisensory loss (4) Neurocysticercosis (5) Headache Status: stable Recommendations #[id number] psych eval reduce polypharmacy EEG MRI brain --CHRISTOPH MURRAY Dec 30, 2016 13:30
[2016-12-30] MEDS ORDERED: NS 275ml ONE (14:40)
[2016-12-30] MEDS ORDERED: Tubing IV Secondary IV ONE (14:40)
[2016-12-30 16:00] VITALS: BP 103/61
[2016-12-30 19:54] VITALS: BP 110/69
[2016-12-30] MEDS: HYDROmorphone 1mg/ml Carpuject IVP PRN (21:19)
[2016-12-30 23:43] VITALS: BP 110/65
[2016-12-31 03:47] VITALS: BP 113/59
[2016-12-31] MEDS: HYDROmorphone 1mg/ml Carpuject IVP PRN (06:21)
[2016-12-31 08:00] VITALS: BP 122/68
[2016-12-31] MEDS: Dyna-Hex 2% Top Sol 2oz TOPIC SCH (08:04)
[2016-12-31] MEDS: Topiramate 25mg tab ORAL SCH ×2 (08:04→20:25)
[2016-12-31] MEDS: Aspirin Baby 81mg ORAL SCH (08:05)
[2016-12-31] MEDS: LORazepam Inj 2mg/ml 1ml IV PRN ×2 (08:26→20:51)
--- NOTE | 2016-12-31 09:01 | Nephrology Progress Note ---
Subjective Subjective late entry for 12/30 - Objective Objective Last 24 Hour Vital Signs Date Time Temp Pulse Resp B/P (MAP) Pulse Ox O2 Delivery O2 Flow Rate FiO2 12/31/16 08:00 97.8 105 20 122/68 97 Nasal Cannula 2.0 12/31/16 04:38 81 12/31/16 03:47 98.3 80 19 113/59 98 Room Air 12/31/16 00:00 88 12/30/16 23:43 98.6 96 18 110/65 96 Room Air 12/30/16 20:00 105 12/30/16 19:54 97.5 107 19 110/69 98 Room Air 12/30/16 16:00 81 12/30/16 16:00 97.9 84 20 103/61 99 Nasal Cannula 3.0 12/30/16 12:00 97.0 81 20 105/59 100 Nasal Cannula 3.0 12/30/16 12:00 75 Height (Feet): 5 Height (Inches): 4.00 Weight (Pounds): 167 CELIO KERR Dec 31, 2016 09:01
--- NOTE | 2016-12-31 09:16 | Electroencephalogram ---
DATE OF PROCEDURE: 12/29/2016 ELECTROENCEPHALOGRAPHY REPORT REFERRING PHYSICIAN: Miguel Angel Ames M.D. Indication: The patient is a 41-year-old female with a history of seizure disorder, presented with exacerbation of seizure activities. EEG was done using 18 electrodes placed scalp to scalp and scalp to ear montages according to 10/20 International System. During the recording, the patient was awake, but mostly very drowsy and sleepy. Medications: Her current treatment include Dilaudid, Seroquel, Klonopin, Neurontin, [place], Topamax, and Depakote. Technique: Most wakeful portions of recording background activity consists of low voltage 8-9 cycles per second alpha activity often override with by fast or low-voltage beta activities. As recording progressed, there was further attenuation of background with slowing in the theta range. Activation procedures included eye opening and eye closure. There was no asymmetry from side to side. There was no spike or wave activities noted. IMPRESSION: Normal and awake stage 1 sleep electroencephalogram. Comment: Absence of paroxysmal event on a single recording does not rule out seizure disorder. Jeremy Gallegos M.D. DR: YESENIA JOB#: [id number] CC:
[2016-12-31] MEDS ORDERED: Hydromorphone 0.5mg/0.5ml inj IVP PRN (11:30)
[2016-12-31 12:00] VITALS: BP 107/70
[2016-12-31] MEDS ORDERED: traMADol 50mg tab ORAL PRN (12:45)
--- NOTE | 2016-12-31 12:49 | Neurology Progress Note ---
Interim History Interim History ROS Limited/Unobtainable: No Complaints: headache in am on dilaudid Events: sz in am postictal vertigo Objective Physical Exam Last Vital Signs Date Time Temp Pulse Resp B/P (MAP) Pulse Ox O2 Delivery O2 Flow Rate FiO2 12/31/16 08:00 102 12/31/16 08:00 97.8 20 122/68 97 Nasal Cannula 2.0 General: well developed, well nourished, no acute distress Head: normocophalic, atraumatic Neck: no rigidity Neurologic Exam Mental Status: awake, normal cognition, other - drowsy sedated 2/2 ativan Speech: normal speech Language: normal language, no aphasia Cranial Nerve II: fundus normal, visual valera, no papilledema Cranial Nerves III, IV, : PERRLA, EOMI, pupils Cranial Nerve V: normal facial sensations, temporales function normal, masseters function normal, pterygoids function normal Cranial Nerve VII: normal facial expressions, other - L face droop Cranial Nerve VIII: normal hearing, no nystagmus Cranial Nerve IX: normal palate elevation, gag response Cranial Nerve X: no voice hoarseness Cranial Nerve XI: SCM symmetric, trapezii function normal Cranial Nerve XII: tongue midline, no tongue atrophy/fasciculations Motor System: other - L hemiplegia with poor efforts Sensory: other - L hemisensory loss incl. L face Coordination: other Deep Tendon Reflexes: 2+ bicep (L), 2+ bicep (R), 2+ tricep (L), 2+ tricep (R) , 2+ brachioradialis (L), 2+ brachioradialis (R), 2+ knee (L), 2+ knee (R), 2+ ankle (L), 2+ ankle (R) Reflexes: flexor plantar (L), flexor plantar (R) Stance: other Gait: other Impression/Recommendations Problems: (1) chronic seizure d/o with pseudoseizures (2) Conversion disorder with abnormal movement (3) left hemiparsis/hemisensory loss (4) Neurocysticercosis (5) Headache Status: stable Recommendations #[id number] psych eval reduce polypharmacy EEG nl MRI brain --CHRISTOPH MURRAY Dec 31, 2016 12:49
--- NOTE | 2016-12-31 12:58 | Diagnostic Imaging Report ---
APPROVED REPORT CPT Code: 79834 Present Symptoms Comments: Pain Hx of Right CFV line BILATERAL: Imaging reveals a patent deep venous system bilaterally. There is no evidence of thrombus within the femoral, popliteal or tibial segments. The greater saphenous veins are also within normal limits. Doppler indicates normal spontaneous flow within these segments. Note: Less compression was used in the right common and proximal superficial femoral veins due to a line.
[2016-12-31 16:00] VITALS: BP 102/62
[2016-12-31 20:00] VITALS: BP 122/60
--- NOTE | 2016-12-31 21:45 | History and Physical Report ---
DATE OF ADMISSION: 12/28/2016 History Of Present Illness: This is a 41-year-old female, who came to the emergency room for having altered mental status and possible CVA. The patient also had episode of seizure this morning. She is currently waking up, still slightly slow. She has no fever or chills. PAST MEDICAL HISTORY: Seizure. MEDICATIONS: See the list. ALLERGIES: NKA. PHYSICAL EXAMINATION: General: This is a young female, who is currently awake and currently opening her eyes, still little bit slow. Vital Signs: Blood pressure is 130/70, pulse 60, and respirations 18. No fever. SKIN: Good skin turgor. HEENT: Eyes are open. NECK: Supple. CHEST: Bilaterally clear. CARDIOVASCULAR: Regular rhythm. No gallop. No murmur. ABDOMEN: Soft. Positive bowel sounds. Nontender. EXTREMITIES: No swelling. GENITOURINARY: Deferred. LABORATORY DATA: No laboratories here. ASSESSMENT: 1. Altered mental status. 2. Recurrent seizure. 3. Possible cerebrovascular accident. Neuro is on consult. PLAN: The patient was given Ativan. Continue Neurology consult. Lamont Smith M.D. DR: DONY JOB#: [id number] CC:
--- NOTE | 2016-12-31 22:50 | Nephrology Progress Note ---
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 (7) depression anxiety (8) Neuropathy Plan Pain management PRN Continue PT/OT Monitor neuro status Dr Monroy following Aspiration precaution Seizure precautions Continue current treatment plan Subjective Constitutional: Reports: weakness - left sided HEENT: Reports: other - headache Genitourinary: Denies: no symptoms, burning, discharge, frequency, flank pain, hematuria, incontinence, pain, urgency, other Neurologic/Psychiatric: Denies: no symptoms, anxiety, depressed, emotional problems, headache, numbness, paresthesia, pre-existing deficit, seizure, tingling, tremors, weakness, other Subjective In bed, complains of headache and left sided weakness Objective Objective Last 24 Hour Vital Signs Date Time Temp Pulse Resp B/P (MAP) Pulse Ox O2 Delivery O2 Flow Rate FiO2 12/31/16 20:00 97.9 94 20 122/60 100 Nasal Cannula 2.0 12/31/16 16:00 97.2 71 20 102/62 98 Nasal Cannula 2.0 12/31/16 16:00 74 12/31/16 12:00 98.0 94 21 107/70 98 Nasal Cannula 2.0 12/31/16 12:00 83 12/31/16 08:00 102 12/31/16 08:00 97.8 105 20 122/68 97 Nasal Cannula 2.0 12/31/16 04:38 81 12/31/16 03:47 98.3 80 19 113/59 98 Room Air 12/31/16 00:00 88 12/30/16 23:43 98.6 96 18 110/65 96 Room Air Intake and Output 12/31/16 01/01/17 19:00 07:00 Intake Total 360 ml Balance 360 ml Intake Oral 360 ml # Voids 2 Height (Feet): 5 Height (Inches): 4.00 Weight (Pounds): 167 General Appearance: no apparent distress, alert EENT: PERRL/EOMI, normal ENT inspection Neck: non-tender, normal alignment Cardiovascular: normal rate, regular rhythm, no JVD Respiratory/Chest: lungs clear, normal breath sounds, no respiratory distress Abdomen: soft, no organomegaly Extremities: normal range of motion, non-tender, normal inspection Neurologic: alert, oriented x 3, responsive, normal mood/affect, motor weakness - left sided weakness Jahaira Braden N.P. Dec 31, 2016 22:50
[2017-01-01] VITALS: BP 111/62
[2017-01-01] MEDS: LORazepam Inj 2mg/ml 1ml IV PRN ×3 (01:13→13:25)
[2017-01-01 04:01] VITALS: BP 98/59
[2017-01-01 08:06] VITALS: BP 110/73
[2017-01-01] MEDS: Topiramate 25mg tab ORAL SCH (09:46)
[2017-01-01] MEDS: Dyna-Hex 2% Top Sol 2oz TOPIC SCH (09:46)
[2017-01-01] MEDS: Aspirin Baby 81mg ORAL SCH (09:49)
[2017-01-01 11:46] VITALS: BP 104/74
[2017-01-01] MEDS: Hydrocortisone 1% Cr 15gm TOPIC SCH ×2 (16:05→18:00)
[2017-01-01] MEDS ORDERED: 1/2 NS 1000ml IV ONE (16:40)
--- NOTE | 2017-01-01 17:11 | Neurology Progress Note ---
Interim History Interim History ROS Limited/Unobtainable: No Complaints: headache in am /then a seizure Events: no change Interim History patient reports of having similar condition L hemiplegia x 1month ,trial of steroids ,then rehab in Apr 2016full recovery Objective Physical Exam Last Vital Signs Date Time Temp Pulse Resp B/P (MAP) Pulse Ox O2 Delivery O2 Flow Rate FiO2 01/01/17 16:00 69 01/01/17 11:46 97.7 18 104/74 100 Nasal Cannula 3.0 General: well developed, well nourished, no acute distress Head: normocophalic, atraumatic Neck: no rigidity Neurologic Exam Mental Status: awake, normal cognition, other - drowsy sedated 2/2 ativan Speech: normal speech Language: normal language, no aphasia Cranial Nerve II: fundus normal, visual valera, no papilledema Cranial Nerves III, IV, : PERRLA, EOMI, pupils Cranial Nerve V: normal facial sensations, temporales function normal, masseters function normal, pterygoids function normal Cranial Nerve VII: normal facial expressions, other - L face droop Cranial Nerve VIII: normal hearing, no nystagmus Cranial Nerve IX: normal palate elevation, gag response Cranial Nerve X: no voice hoarseness Cranial Nerve XI: SCM symmetric, trapezii function normal Cranial Nerve XII: tongue midline, no tongue atrophy/fasciculations Motor System: other - L hemiplegia with poor efforts Sensory: other - L hemisensory loss incl. 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
--- NOTE | 2017-01-01 17:33 | Nephrology Progress Note ---
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 (7) depression anxiety (8) Neuropathy Plan Pain management PRN Continue PT/OT Monitor neuro status Dr Monroy following Aspiration precaution Seizure precautions Continue current treatment plan Subjective Constitutional: Reports: weakness - left sided HEENT: Denies: no symptoms, eye pain, blurred vision, tearing, double vision, ear pain, ear discharge, nose pain, nose congestion, throat pain, throat swelling, mouth pain, mouth swelling, other Genitourinary: Denies: no symptoms, burning, discharge, frequency, flank pain, hematuria, incontinence, pain, urgency, other Neurologic/Psychiatric: Denies: no symptoms, anxiety, depressed, emotional problems, headache, numbness, paresthesia, pre-existing deficit, seizure, tingling, tremors, weakness, other Subjective In bed, complains of headache and left sided weakness Objective Objective Last 24 Hour Vital Signs Date Time Temp Pulse Resp B/P (MAP) Pulse Ox O2 Delivery O2 Flow Rate FiO2 01/01/17 16:00 69 01/01/17 12:00 96 01/01/17 11:46 97.7 98 18 104/74 100 Nasal Cannula 3.0 01/01/17 08:06 98.1 88 18 110/73 100 Nasal Cannula 3.0 01/01/17 08:00 81 01/01/17 04:01 97.5 64 20 98/59 100 Nasal Cannula 2.0 01/01/17 04:00 65 01/01/17 00:00 97.9 85 20 111/62 100 Nasal Cannula 2.0 01/01/17 00:00 74 12/31/16 21:25 97.9 12/31/16 20:00 75 12/31/16 20:00 97.9 94 20 122/60 100 Nasal Cannula 2.0 Intake and Output 01/01/17 01/02/17 19:00 07:00 Intake Total 820 ml Output Total 550 ml Balance 270 ml Intake Oral 220 ml IV Total 600 ml Output Urine Total 550 ml Height (Feet): 5 Height (Inches): 4.00 Weight (Pounds): 167 General Appearance: no apparent distress, alert EENT: normal ENT inspection Neck: non-tender, normal alignment Cardiovascular: normal rate, regular rhythm Respiratory/Chest: lungs clear, normal breath sounds, no respiratory distress Abdomen: normal bowel sounds, non tender, soft Extremities: non-tender, normal inspection Neurologic: alert, oriented x 3, responsive, normal mood/affect, motor weakness - left sided Jahaira Braden N.P. Jan 01, 2017 17:33
[2017-01-01] MEDS ORDERED: Hydrocortisone 1% Cr 15gm TOPIC SCH (18:00)
[2017-01-01] MEDS: Cyclobenzaprine 10mg Tab ORAL SCH (18:41)
[2017-01-01 20:09] VITALS: BP 121/61
[2017-01-01] MEDS: traMADol 50mg tab ORAL PRN (21:01)
[2017-01-01] MEDS: Topiramate 100mg tab ORAL SCH (21:02)
[2017-01-01 23:58] VITALS: BP 116/66
[2017-01-02] VITALS: BP 112/74
[2017-01-02 04:14] VITALS: BP 100/58
[2017-01-02 08:22] VITALS: BP 97/56
[2017-01-02] MEDS: Dyna-Hex 2% Top Sol 2oz TOPIC SCH (08:42)
[2017-01-02] MEDS: Topiramate 100mg tab ORAL SCH ×2 (08:42→20:59)
[2017-01-02] MEDS: Cyclobenzaprine 10mg Tab ORAL SCH ×3 (08:44→18:05)
[2017-01-02] MEDS: Aspirin Baby 81mg ORAL SCH (08:44)
[2017-01-02] MEDS: Hydrocortisone 1% Cr 15gm TOPIC SCH ×2 (08:48→18:04)
[2017-01-02] MEDS ORDERED: Flu Vaccine Quadrivalent 0.5ml IM ONE (10:00)
[2017-01-02] MEDS: traMADol 50mg tab ORAL PRN ×2 (10:46→20:58)
[2017-01-02 12:03] VITALS: BP 107/60
[2017-01-02] MEDS: LORazepam Inj 2mg/ml 1ml IV PRN (14:35)
[2017-01-02 15:56] VITALS: BP 113/58
--- NOTE | 2017-01-02 17:38 | Neurology Progress Note ---
Interim History Interim History ROS Limited/Unobtainable: No Complaints: severe FIGUEROA, Events: x3 seizures Objective Physical Exam Last Vital Signs Date Time Temp Pulse Resp B/P (MAP) Pulse Ox O2 Delivery O2 Flow Rate FiO2 01/02/17 16:00 72 01/02/17 15:56 96.6 18 113/58 100 Nasal Cannula 4.0 General: well developed, well nourished, no acute distress Head: normocophalic, atraumatic Neck: no rigidity Neurologic Exam Mental Status: awake, normal cognition, other - drowsy sedated 2/2 ativan Speech: normal speech Language: normal language, no aphasia Cranial Nerve II: fundus normal, visual valera, no papilledema Cranial Nerves III, IV, : PERRLA, EOMI, pupils Cranial Nerve V: normal facial sensations, temporales function normal, masseters function normal, pterygoids function normal Cranial Nerve VII: normal facial expressions, other - L face droop Cranial Nerve VIII: normal hearing, no nystagmus Cranial Nerve IX: normal palate elevation, gag response Cranial Nerve X: no voice hoarseness Cranial Nerve XI: SCM symmetric, trapezii function normal Cranial Nerve XII: tongue midline, no tongue atrophy/fasciculations Motor System: other - L hemiplegia with poor efforts Sensory: other - L hemisensory loss incl. 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 transfer to [facility] facility CHRISTOPH LYLE Jan 02, 2017 17:38
[2017-01-02 20:00] VITALS: BP 115/62
--- NOTE | 2017-01-02 20:59 | Nephrology Progress Note ---
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 (7) depression anxiety (8) Neuropathy Plan Pain management PRN Continue PT/OT Monitor neuro status Dr Monroy following Aspiration precaution Seizure precautions Continue current treatment plan Subjective Constitutional: Reports: weakness HEENT: Denies: no symptoms, eye pain, blurred vision, tearing, double vision, ear pain, ear discharge, nose pain, nose congestion, throat pain, throat swelling, mouth pain, mouth swelling, other Genitourinary: Denies: no symptoms, burning, discharge, frequency, flank pain, hematuria, incontinence, pain, urgency, other Neurologic/Psychiatric: Reports: headache Subjective In bed, complains of headache and left sided weakness Objective Objective Last 24 Hour Vital Signs Date Time Temp Pulse Resp B/P (MAP) Pulse Ox O2 Delivery O2 Flow Rate FiO2 01/02/17 20:00 81 01/02/17 20:00 98.1 82 18 115/62 99 Nasal Cannula 2.0 01/02/17 16:00 72 01/02/17 15:56 96.6 83 18 113/58 100 Nasal Cannula 4.0 01/02/17 12:03 96.8 73 18 107/60 100 Nasal Cannula 2.0 01/02/17 12:00 77 01/02/17 08:22 97.3 73 18 97/56 100 Nasal Cannula 2.0 01/02/17 08:00 67 01/02/17 04:14 97.7 61 18 100/58 99 Nasal Cannula 01/02/17 04:00 68 01/02/17 00:00 87 01/01/17 23:58 97.6 90 18 116/66 99 Nasal Cannula Intake and Output 01/02/17 01/03/17 19:00 07:00 Intake Total 1355 ml 75 ml Output Total 350 ml Balance 1005 ml 75 ml Intake Oral 680 ml IV Total 675 ml 75 ml Output Urine Total 350 ml Height (Feet): 5 Height (Inches): 4.00 Weight (Pounds): 167 General Appearance: no apparent distress, alert EENT: normal ENT inspection Neck: non-tender, normal alignment Cardiovascular: normal rate, regular rhythm, no JVD Respiratory/Chest: normal breath sounds, no respiratory distress Abdomen: soft, no organomegaly Extremities: non-tender, normal inspection - LEFT sided weakness Neurologic: alert, oriented x 3, responsive, normal mood/affect Jahaira Braden N.P. Jan 02, 2017 20:59
[2017-01-03] VITALS (7 sets, daily range): BP systolic 97–116; BP diastolic 55–74
[2017-01-03] MEDS: traMADol 50mg tab ORAL PRN ×2 (03:05→21:51)
[2017-01-03] MEDS: Hydrocortisone 1% Cr 15gm TOPIC SCH ×2 (09:00→18:03)
[2017-01-03] MEDS: LORazepam Inj 2mg/ml 1ml IV PRN (09:29)
[2017-01-03] MEDS: Topiramate 100mg tab ORAL SCH (10:04)
[2017-01-03] MEDS: Aspirin Baby 81mg ORAL SCH (10:06)
[2017-01-03] MEDS: Cyclobenzaprine 10mg Tab ORAL SCH ×3 (10:09→17:55)
[2017-01-03] MEDS: Dyna-Hex 2% Top Sol 2oz TOPIC SCH (10:11)
--- NOTE | 2017-01-03 12:12 | Neurology Progress Note ---
Interim History Interim History ROS Limited/Unobtainable: No Complaints: severe FIGUEROA, sleepy Events: sz while at MRI Objective Physical Exam Last Vital Signs Date Time Temp Pulse Resp B/P (MAP) Pulse Ox O2 Delivery O2 Flow Rate FiO2 01/03/17 11:08 97.5 01/03/17 08:00 75 15 103/62 100 Nasal Cannula 2.0 General: well developed, well nourished, no acute distress Head: normocophalic, atraumatic Neck: no rigidity Neurologic Exam Mental Status: awake, normal cognition, other - drowsy sedated 2/2 ativan Speech: normal speech Language: normal language, no aphasia Cranial Nerve II: fundus normal, visual valera, no papilledema Cranial Nerves III, IV, : PERRLA, EOMI, pupils Cranial Nerve V: normal facial sensations, temporales function normal, masseters function normal, pterygoids function normal Cranial Nerve VII: normal facial expressions, other - L face droop Cranial Nerve VIII: normal hearing, no nystagmus Cranial Nerve IX: normal palate elevation, gag response Cranial Nerve X: no voice hoarseness Cranial Nerve XI: SCM symmetric, trapezii function normal Cranial Nerve XII: tongue midline, no tongue atrophy/fasciculations Motor System: other - L hemiplegia with poor efforts Sensory: other - L hemisensory loss incl. L face on midline Coordination: other Deep Tendon Reflexes: 2+ bicep (L), 2+ bicep (R), 2+ tricep (L), 2+ tricep (R) , 2+ brachioradialis (L), 2+ brachioradialis (R), 2+ knee (L), 2+ knee (R), 2+ ankle (L), 2+ ankle (R) Reflexes: flexor plantar (L), flexor plantar (R) Stance: other Gait: other Impression/Recommendations Problems: (1) recurrent L hemiplegia/hemisensory loss (2) chronic seizure d/o with pseudoseizures (3) Conversion disorder with abnormal movement (4) Severe cephalgia muscle contraction type, r/o chronic migrain (5) Allergic drug rash Status: not improved, unchanged Recommendations #[id number] psych raghavendra EEG nl MRI brain -repeat flexeryl 10mg tid d/c opiates pt/ot/acute rehab topamax 150mg bid d/w staff and pt,s mother. transfer to [facility] 24[facility] facility start Vimpat 100mgbid CHRISTOPH LYLE Jan 03, 2017 12:12
[2017-01-03] MEDS ORDERED: LORazepam Inj 2mg/ml 1ml IV ONE (13:00)
[2017-01-03] MEDS: Lacosamide 100 MG TABLET ORAL SCH ×2 (13:44→21:40)
--- NOTE | 2017-01-03 14:20 | Diagnostic Imaging Report ---
Indication: Seizures Technique: sagittal T1 fast spin echo, axial T1 FLAIR, axial T2 FLAIR, axial T2 FS PROPELLER, axial T2* GRE, axial diffusion weighted images, coronal T2 FLAIR PROPELLER, coronal spoiled gradient images. ADC and exponential ADC maps generated Comparison: 12/30/2016 Findings:Again demonstrated is image degradation due to dental metal. This obscures most of the inferior frontal and anterior temporal regions on the diffusion-weighted images and on the T2 star images. This also obscures the posterior fossa on the T2-weighted images. No abnormal areas of restricted diffusion to suggest acute infarction. No acute hemorrhage or edema. There is a tiny T2 hyperintense focus in the high left parasagittal frontal deep white matter which is somewhat more apparent than on the prior study. There are some foci of T2 hyperintensity also seen in the bilateral basal ganglia which appears slightly more conspicuous than previously. Other scattered T2 hyperintense foci are similar to the prior exam. These do not demonstrate any associated diffusion restriction and are not seen to enhance on the previous contrast images. No mass effect nor midline shift. As previously, the bilateral hippocampi are symmetrical and unremarkable. Normal size ventricles and extra axial CSF spaces. Visualized orbits and sinuses are unremarkable. The vascular flow voids are preserved Impression: Limited exam, as described Scattered small foci of T2 hyperintensity within the bilateral deep white matter and basal ganglia, equivocally more conspicuous than on earlier study of 01/03/2017. Could represent small foci of ischemia versus demyelination Negative for acute intracranial bleed, mass effect, edema, or infarct Discussed by phone with Dr. Gallegos at the time of interpretation
[2017-01-03] MEDS ORDERED: Potassium Chloride 40 MEQ in D5 1/2NS 1,000 ML IV SCH (14:45)
[2017-01-03] MEDS ORDERED: Sodium Bicarbonate 50ml Carp IV PRN (15:45)
[2017-01-03] MEDS ORDERED: Lidocaine 1% Plain 30 ml INJ PRN (15:45)
[2017-01-03] MEDS ORDERED: Heparin 2000 units/Ns 1000ml INJ PRN (15:45)
[2017-01-03] MEDS ORDERED: 1/2 NS 1000ml IV ONE (16:45)
[2017-01-03 16:57] LABS: BASOPHILS % (AUTO) 0.7 % (0.0-2.0); MEAN CORPUSCULAR HEMOGLOBIN 30.9 PG (27.0-31.0); MEAN CORPUSCULAR HGB CONC 34.4 G/DL (32.0-36.0); MEAN CORPUSCULAR VOLUME 90 FL (80-99); MEAN PLATELET VOLUME 5.7 FL (6.5-10.1); MONOCYTES % (AUTO) 4.4 % (1.0-10.0); NEUTROPHILS % (AUTO) 70.9 % (45.0-75.0); PLATELET COUNT 248 K/UL (150-450); RED CELL DISTRIBUTION WIDTH 11.8 % (11.6-14.8)
[2017-01-03 17:12] LABS: CHLORIDE 104 mEQ/L (98-107); POTASSIUM 3.8 mEQ/L (3.4-4.9); SODIUM 141 mEQ/L (135-145)
[2017-01-03 17:31] LABS: ALANINE AMINOTRANSFERASE 23 U/L (3-33); ALBUMIN/GLOBULIN RATIO 1.3 (1.0-2.7); ANION GAP 12 (5-15); ASPARTATE AMINO TRANSFERASE 21 U/L (5-40); CALCIUM 9.1 mg/dL (8.6-10.2); CARBON DIOXIDE 25 mEQ/L (20-30); CREATININE 0.8 mg/dL (0.5-0.9); GLOMERULAR FILTRATION RATE > 60 mL/min (>60); HEMOLYSIS 7; TOTAL PROTEIN 6.9 g/dL (6.6-8.7)
[2017-01-03 18:06] LABS: ERYTHROCYTE SEDIMENTATION RATE 21 MM/HR (0-20)
--- NOTE | 2017-01-03 18:15 | Consultation ---
History of Present Illness General Chief Complaint: General Complaint Present Illness HPI 41-year-old female, who came to the emergency room for having altered mental status and possible CVA. the pt pw seizure d/o. so far work ups been normal. the pt is pw with ptsd sxs, lost her sister when she was 10 years old. the pt believes she has her sisters illness and she is going to . the pt is severely anxious and its seems like she lost touch with reality. Allergies: Coded Allergies: VALPROIC ACID (Verified Allergy, Severe, Rash, 12/30/16) Dairy (Verified Allergy, Unknown, 12/23/15) LEVETIRACETAM (Verified Allergy, Unknown, 12/28/16) MORPHINE (Verified Allergy, Unknown, Itching, 12/22/15) PHENYTOIN (Verified Allergy, Unknown, 12/28/16) Whole Milk (Verified Allergy, Unknown, 12/23/15) Medication History Scheduled Aspirin* (Aspir 81*), 81 MG ORAL DAILY, (Reported) Clonazepam* (Klonopin*), 1 MG PO BID, (Reported) Gabapentin* (Gabapentin*), 600 MG ORAL THREE TIMES A DAY Ibuprofen (Advil), 100 MG ORAL Q6H, (Reported) Quetiapine Fumarate (Seroquel), 12.5 MG ORAL TWICE A DAY, (Reported) Scheduled PRN Hydrocodone Bit/Acetaminophen 5-325* ([place] 5-325*), 1 TAB ORAL Q6H PRN for For Pain Discontinued Medications Lamotrigine* (Lamictal*), 50 MG ORAL BID, (Reported) Discontinued Reason: MD discontinued med Lorazepam (Ativan), 4 MG IJ, (Reported) Discontinued Reason: MD discontinued med Patient History History Provided By: Patient, Medical Record, PMD Healthcare decision maker Resuscitation status Full Code Advanced Directive on File Past Medical/Surgical History Past Medical/Surgical History: (1) Finger Contusion (2) fracture of distal phalanx of left 2nd digit (3) Palpitations (4) Insect bite (5) Panic attacks (6) Chest pain (7) Seizure disorder (8) Chest pain (9) Chest pain (10) persistant headache r/o meningitis (11) conversio (12) Uncontrolled seizures (13) Seizure disorder (14) CVA (cerebral vascular accident) (15) Seizure disorder (16) Neuropathy (17) Seizure disorder (18) Panic attacks (19) Atypical chest pain (20) Cysticercosis of central nervous system (21) chronic seizure d/o with pseudoseizures (22) depression anxiety (23) Headache (24) Neurocysticercosis (25) Conversion disorder with abnormal movement (26) left hemiparsis/hemisensory loss (27) Headache (28) recurrent L hemiplegia/hemisensory loss (29) Severe cephalgia muscle contraction type, r/o chronic migrain (30) Allergic drug rash Review of Systems Psychiatric: Reports: prior hx, anxiety, depressed feelings, emotional problems Physical Exam General Appearance: alert, moderate distress, thin Neurologic: alert, oriented x 3, responsive, depressed affect Last 24 Hour Vital Signs Date Time Temp Pulse Resp B/P (MAP) Pulse Ox O2 Delivery O2 Flow Rate FiO2 01/03/17 16:00 91 01/03/17 16:00 97.6 70 15 101/61 100 Nasal Cannula 2.0 01/03/17 14:33 97.5 01/03/17 12:00 97.5 70 15 98/58 100 Nasal Cannula 2.0 01/03/17 12:00 77 01/03/17 08:00 74 01/03/17 08:00 97.5 75 15 103/62 100 Nasal Cannula 2.0 01/03/17 04:00 66 01/03/17 00:00 71 01/02/17 20:00 81 01/02/17 20:00 98.1 82 18 115/62 99 Nasal Cannula 2.0 Laboratory Tests Test 01/03/17 16:45 White Blood Count 6.0 K/UL (4.8-10.8) Red Blood Count 4.70 M/UL (4.20-5.40) Hemoglobin 14.5 G/DL (12.0-16.0) Hematocrit 42.2 % (37.0-47.0) Mean Corpuscular Volume 90 FL (80-99) Mean Corpuscular Hemoglobin 30.9 PG (27.0-31.0) Mean Corpuscular Hemoglobin Concent 34.4 G/DL (32.0-36.0) Red Cell Distribution Width 11.8 % (11.6-14.8) Platelet Count 248 K/UL (150-450) Mean Platelet Volume 5.7 FL (6.5-10.1) L Neutrophils (%) (Auto) 70.9 % (45.0-75.0) Lymphocytes (%) (Auto) 20.0 % (20.0-45.0) Monocytes (%) (Auto) 4.4 % (1.0-10.0) Eosinophils (%) (Auto) 4.0 % (0.0-3.0) H Basophils (%) (Auto) 0.7 % (0.0-2.0) Erythrocyte Sedimentation Rate Pending Sodium Level 141 mEQ/L (135-145) Potassium Level 3.8 mEQ/L (3.4-4.9) Chloride Level 104 mEQ/L (98-107) Carbon Dioxide Level 25 mEQ/L (20-30) Anion Gap 12 (5-15) Blood Urea Nitrogen 10 mg/dL (7-23) Creatinine 0.8 mg/dL (0.5-0.9) Estimat Glomerular Filtration Rate > 60 mL/min (>60) Glucose Level 98 mg/dL (74-106) Calcium Level 9.1 mg/dL (8.6-10.2) Total Bilirubin 0.3 mg/dL (0.0-1.2) Aspartate Amino Transf (AST/SGOT) 21 U/L (5-40) Alanine Aminotransferase (ALT/SGPT) 23 U/L (3-33) Alkaline Phosphatase 115 U/L (35-104) H Total Protein 6.9 g/dL (6.6-8.7) Albumin 4.0 g/dL (3.5-5.2) Globulin 2.9 g/dL Albumin/Globulin Ratio 1.3 (1.0-2.7) Vitamin B12 Level Pending Anti-Nuclear Antibody Screen Pending Height (Feet): 5 Height (Inches): 4.00 Weight (Pounds): 167 Medications Current Medications Medications (Trade) Dose Ordered Sig/Lilibeth Route PRN Reason Start Time Stop Time Status Last Admin Dose Admin Aspirin (ASA) 81 mg DAILY ORAL 12/29/16 09:00 01/28/17 08:59 01/03/17 10:06 Chlorhexidine Gluconate (Jessica-Hex 2%) 1 applic DAILY TOPIC 01/04/17 09:00 02/03/17 08:59 Clonazepam (KlonoPIN) 1 mg Q12HR ORAL 12/28/16 21:00 01/04/17 20:59 01/03/17 10:04 Cyclobenzaprine HCl (Flexeril) 10 mg THREE TIMES A DAY ORAL 01/01/17 18:00 01/31/17 17:59 01/03/17 17:55 Gabapentin (Neurontin) 400 mg Q12HR ORAL 01/01/17 21:00 01/31/17 20:59 01/03/17 10:07 Heparin Sodium/ Sodium Chloride (Heparin 2000 units/Ns 1000ml premix) 2,000 unit ONCE PRN INJ PICC PLACEMENT 01/03/17 15:45 01/04/17 23:59 Hydrocortisone (Hydrocortisone) 1 applic BID TOPIC 01/01/17 15:30 01/31/17 15:29 01/03/17 09:00 Lacosamide (Vimpat) 100 mg Q12HR ORAL 01/03/17 13:00 02/02/17 12:59 01/03/17 13:44 Lidocaine HCl (Xylocaine 1% 30ml) 30 ml ONCE PRN INJ PICC PLACEMENT 01/03/17 15:45 01/04/17 23:59 Lorazepam (Ativan 2mg/ml 1ml) 0.5 mg Q4H PRN IV For Headache 01/01/17 11:30 01/08/17 11:29 Lorazepam (Ativan 2mg/ml 1ml) 1 mg Q1H PRN IV For Seizures 12/28/16 16:45 01/04/17 16:44 01/03/17 09:29 Quetiapine Fumarate (SEROquel) 12.5 mg BEDTIME ORAL 01/02/17 21:00 01/31/17 20:59 01/02/17 20:57 Sodium Bicarbonate (Sodium Bicarbonate) 50 ml ONCE PRN IV PICC PLACEMENT 01/03/17 15:45 01/04/17 23:59 Sodium Chloride 1,000 ml @ 75 mls/hr [id number] IV 12/31/16 16:30 01/30/17 16:29 01/03/17 13:45 Topiramate (Topamax) 150 mg EVERY 12 HOURS ORAL 01/02/17 21:00 02/01/17 20:59 01/03/17 10:04 Tramadol HCl (Ultram) 25 mg Q6H PRN ORAL PAIN 4-10 01/01/17 17:30 01/08/17 17:29 01/03/17 03:05 Assessment/Plan Status: stable Assessment/Plan ptsd, r/o coversion d/o dc seroquel prozac 20mg cont Dahlia Diaz M.D. Jan 03, 2017 18:15
--- NOTE | 2017-01-03 23:14 | Nephrology Progress Note ---
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 (7) depression anxiety (8) Neuropathy Plan Pain management PRN Continue PT/OT Monitor neuro status Dr Monroy following- will f/u with recommendations Aspiration precaution Seizure precautions Awaiting transfer Psych consult Continue current treatment plan Subjective Constitutional: Reports: weakness HEENT: Reports: other - headache Genitourinary: Denies: no symptoms, burning, discharge, frequency, flank pain, hematuria, incontinence, pain, urgency, other Neurologic/Psychiatric: Reports: headache, numbness, seizure, weakness Subjective In bed, complains of headache and left sided weakness Objective Objective Last 24 Hour Vital Signs Date Time Temp Pulse Resp B/P (MAP) Pulse Ox O2 Delivery O2 Flow Rate FiO2 01/03/17 20:00 97.9 91 18 116/72 99 Nasal Cannula 2.0 01/03/17 18:54 97.6 01/03/17 16:00 91 01/03/17 16:00 97.6 70 15 101/61 100 Nasal Cannula 2.0 01/03/17 12:00 97.5 70 15 98/58 100 Nasal Cannula 2.0 01/03/17 12:00 77 01/03/17 08:00 74 01/03/17 08:00 97.5 75 15 103/62 100 Nasal Cannula 2.0 01/03/17 04:00 66 01/03/17 00:00 71 Intake and Output 01/03/17 01/04/17 19:00 07:00 Intake Total 825 ml 75 ml Output Total 1250 ml Balance -425 ml 75 ml IV Total 825 ml 75 ml Output Urine Total 1250 ml # Voids 5 Laboratory Tests 01/03/17 16:45: White Blood Count 6.0, Red Blood Count 4.70, Hemoglobin 14.5, Hematocrit 42.2, Mean Corpuscular Volume 90, Mean Corpuscular Hemoglobin 30.9, Mean Corpuscular Hemoglobin Concent 34.4, Red Cell Distribution Width 11.8, Platelet Count 248, Mean Platelet Volume 5.7L, Neutrophils (%) (Auto) 70.9, Lymphocytes (%) (Auto) 20.0, Monocytes (%) (Auto) 4.4, Eosinophils (%) (Auto) 4.0H, Basophils (%) (Auto ) 0.7, Erythrocyte Sedimentation Rate 21H, Sodium Level 141, Potassium Level 3.8 , Chloride Level 104, Carbon Dioxide Level 25, Anion Gap 12, Blood Urea Nitrogen 10, Creatinine 0.8, Estimat Glomerular Filtration Rate > 60, Glucose Level 98, Calcium Level 9.1, Total Bilirubin 0.3, Aspartate Amino Transf (AST/ SGOT) 21, Alanine Aminotransferase (ALT/SGPT) 23, Alkaline Phosphatase 115H, Total Protein 6.9, Albumin 4.0, Globulin 2.9, Albumin/Globulin Ratio 1.3, Vitamin B12 Level > 2000H, Anti-Nuclear Antibody Screen [Pending] Height (Feet): 5 Height (Inches): 4.00 Weight (Pounds): 167 General Appearance: no apparent distress, alert EENT: PERRL/EOMI, normal ENT inspection Neck: non-tender, normal alignment Cardiovascular: normal rate, regular rhythm, no JVD Respiratory/Chest: lungs clear, normal breath sounds Abdomen: non tender, soft, no organomegaly, no mass Extremities: non-tender, no calf tenderness, other - left sided weakness Neurologic: alert, oriented x 3, responsive, normal mood/affect Jahaira Braden N.P. Jan 03, 2017 23:14
[2017-01-04 04:00] VITALS: BP 98/65
[2017-01-04] MEDS: traMADol 50mg tab ORAL PRN ×2 (04:31→17:51)
[2017-01-04 08:05] VITALS: BP 105/69
[2017-01-04] MEDS: Lacosamide 100 MG TABLET ORAL SCH ×2 (08:55→21:15)
[2017-01-04] MEDS: Dyna-Hex 2% Top Sol 2oz TOPIC SCH (08:55)
[2017-01-04] MEDS: Topiramate 100mg tab ORAL SCH ×2 (08:56→17:47)
[2017-01-04] MEDS: Aspirin Baby 81mg ORAL SCH (08:56)
[2017-01-04] MEDS: Cyclobenzaprine 10mg Tab ORAL SCH ×2 (08:57→13:06)
[2017-01-04] MEDS: Hydrocortisone 1% Cr 15gm TOPIC SCH ×2 (09:00→17:48)
[2017-01-04] MEDS ORDERED: Topiramate 100mg tab ORAL SCH (09:00)
[2017-01-04 11:23] VITALS: BP 115/65
[2017-01-04] MEDS: LORazepam Inj 2mg/ml 1ml IV PRN (11:29)
--- NOTE | 2017-01-04 12:16 | Diagnostic Imaging Report ---
Indication: Headache Technique: Contiguous 5 mm thick transaxial imaging of the head obtained in a Siemens Sensation [address] scanner. Soft tissue and bone windows generated. Total Dose length Product (DLP): [address] Dose Index Volume (CTDIvol): 70.38, 0.15 mGy Comparison: 12/28/16 Findings: There is mild atrophy of the frontal region bilaterally. Also there are calcifications that are parenchymal for example in the left parietal lobe. There is no mass effect, midline shift, or edema identified. There is no evidence of acute hemorrhage or abnormal intra-axial or extra-axial fluid collections. The bones and soft tissues are unremarkable. Impression: No mass effect, edema or acute bleed. Mild bifrontal atrophy. Cysticercosis suspected. No change from the prior study The CT scanner at [facility] is accredited by the [employer] and the scans are performed using dose optimization techniques as appropriate to a performed exam including Automatic Exposure control.
--- NOTE | 2017-01-04 14:31 | Neurology Progress Note ---
Interim History Interim History ROS Limited/Unobtainable: No Complaints: FIGUEROA/leg pain Events: fell off bed mild head trauma CT brain ok Objective Physical Exam Last Vital Signs Date Time Temp Pulse Resp B/P (MAP) Pulse Ox O2 Delivery O2 Flow Rate FiO2 01/04/17 12:00 79 01/04/17 11:23 98.0 20 115/65 95 Nasal Cannula 2.0 Laboratory Tests Test 01/03/17 16:45 White Blood Count 6.0 K/UL (4.8-10.8) Red Blood Count 4.70 M/UL (4.20-5.40) Hemoglobin 14.5 G/DL (12.0-16.0) Hematocrit 42.2 % (37.0-47.0) Mean Corpuscular Volume 90 FL (80-99) Mean Corpuscular Hemoglobin 30.9 PG (27.0-31.0) Mean Corpuscular Hemoglobin Concent 34.4 G/DL (32.0-36.0) Red Cell Distribution Width 11.8 % (11.6-14.8) Platelet Count 248 K/UL (150-450) Mean Platelet Volume 5.7 FL (6.5-10.1) L Neutrophils (%) (Auto) 70.9 % (45.0-75.0) Lymphocytes (%) (Auto) 20.0 % (20.0-45.0) Monocytes (%) (Auto) 4.4 % (1.0-10.0) Eosinophils (%) (Auto) 4.0 % (0.0-3.0) H Basophils (%) (Auto) 0.7 % (0.0-2.0) Erythrocyte Sedimentation Rate 21 MM/HR (0-20) H Sodium Level 141 mEQ/L (135-145) Potassium Level 3.8 mEQ/L (3.4-4.9) Chloride Level 104 mEQ/L (98-107) Carbon Dioxide Level 25 mEQ/L (20-30) Anion Gap 12 (5-15) Blood Urea Nitrogen 10 mg/dL (7-23) Creatinine 0.8 mg/dL (0.5-0.9) Estimat Glomerular Filtration Rate > 60 mL/min (>60) Glucose Level 98 mg/dL (74-106) Calcium Level 9.1 mg/dL (8.6-10.2) Total Bilirubin 0.3 mg/dL (0.0-1.2) Aspartate Amino Transf (AST/SGOT) 21 U/L (5-40) Alanine Aminotransferase (ALT/SGPT) 23 U/L (3-33) Alkaline Phosphatase 115 U/L (35-104) H Total Protein 6.9 g/dL (6.6-8.7) Albumin 4.0 g/dL (3.5-5.2) Globulin 2.9 g/dL Albumin/Globulin Ratio 1.3 (1.0-2.7) Vitamin B12 Level > 2000 pg/mL (211-946) H Anti-Nuclear Antibody Screen Pending General: well developed, well nourished, no acute distress Head: normocophalic, atraumatic Neck: no rigidity Neurologic Exam Mental Status: awake, normal cognition, other - more awake Speech: normal speech Language: normal language, no aphasia Cranial Nerve II: fundus normal, visual valera, no papilledema Cranial Nerves III, IV, : PERRLA, EOMI, pupils Cranial Nerve V: normal facial sensations, temporales function normal, masseters function normal, pterygoids function normal Cranial Nerve VII: normal facial expressions, other - L face droop Cranial Nerve VIII: normal hearing, no nystagmus Cranial Nerve IX: normal palate elevation, gag response Cranial Nerve X: no voice hoarseness Cranial Nerve XI: SCM symmetric, trapezii function normal Cranial Nerve XII: tongue midline, no tongue atrophy/fasciculations Motor System: other - L hemiplegia with poor efforts Sensory: other - L hemisensory loss incl. L face on midline Coordination: other Deep Tendon Reflexes: 2+ bicep (L), 2+ bicep (R), 2+ tricep (L), 2+ tricep (R) , 2+ brachioradialis (L), 2+ brachioradialis (R), 2+ knee (L), 2+ knee (R), 2+ ankle (L), 2+ ankle (R) Reflexes: flexor plantar (L), flexor plantar (R) Stance: other Gait: other Impression/Recommendations Problems: (1) recurrent L hemiplegia/hemisensory loss (2) chronic seizure d/o with pseudoseizures (3) Severe cephalgia muscle contraction type, r/o chronic migrain (4) Allergic drug rash (5) r/o multiple sclerosis Status: stable Recommendations #[id number] psych raghavendra; noted EEG nl MRI brain -repeated flexeryl 10mg tid d/c opiates pt/ot/acute rehab topamax 150mg bid d/w staff and pt,s mother. transfer to [facility] 24h[facility] facility start Vimpat 100mgbid CHRISTOPH SPANN Jan 04, 2017 14:31
[2017-01-04 16:08] VITALS: BP 107/69
[2017-01-04 20:00] VITALS: BP 126/64
[2017-01-04] MEDS: clonazePAM 0.5mg tab ORAL SCH (21:15)
--- NOTE | 2017-01-04 21:29 | General Progress Note ---
Assessment/Plan Status: stable Assessment/Plan somatoform, conversion, pseudoseizure -cont prozac -risperdal -klonopin Subjective Constitutional: Reports: malaise, weakness Neurologic/Psychiatric: Reports: anxiety, depressed, emotional problems Allergies: Coded Allergies: VALPROIC ACID (Verified Allergy, Severe, Rash, 12/30/16) Dairy (Verified Allergy, Unknown, 12/23/15) LEVETIRACETAM (Verified Allergy, Unknown, 12/28/16) MORPHINE (Verified Allergy, Unknown, Itching, 12/22/15) PHENYTOIN (Verified Allergy, Unknown, 12/28/16) Whole Milk (Verified Allergy, Unknown, 12/23/15) Subjective The pt apparently had seizure when the pt was in ot, cleaning herself. the pt sated " I hit my head very hard on the floor." the pt was not noted to have post ictus. the pt insists that she has had cva in apr/ Last 24 Hour Vital Signs Date Time Temp Pulse Resp B/P (MAP) Pulse Ox O2 Delivery O2 Flow Rate FiO2 01/04/17 16:08 97.8 92 20 107/69 95 Room Air 01/04/17 16:00 88 01/04/17 12:00 79 01/04/17 11:23 98.0 88 20 115/65 95 Nasal Cannula 2.0 01/04/17 08:05 97.3 85 20 105/69 98 Nasal Cannula 2.0 01/04/17 08:00 71 01/04/17 04:00 69 01/04/17 04:00 96.6 67 18 98/65 100 Nasal Cannula 2.0 01/04/17 00:00 81 01/03/17 23:39 97.6 69 18 108/70 100 Room Air Intake and Output 01/04/17 01/05/17 19:00 07:00 Intake Total 1565 ml Balance 1565 ml Intake Oral 740 ml IV Total 825 ml # Voids 1 Height (Feet): 5 Height (Inches): 4.00 Weight (Pounds): 167 General Appearance: no apparent distress, alert Neurologic: alert, oriented x 3, responsive, depressed affect Dahlia Stack M.D. Jan 04, 2017 21:29
[2017-01-05] VITALS (7 sets, daily range): BP systolic 95–142; BP diastolic 53–97
[2017-01-05] MEDS: traMADol 50mg tab ORAL PRN ×3 (00:18→16:29)
[2017-01-05] MEDS ORDERED: 1/2 NS 1000ml IV ONE (08:11)
--- NOTE | 2017-01-05 08:49 | Nephrology Progress Note ---
Assessment/Plan Problem List: (1) Seizure disorder (2) left hemiparsis/hemisensory loss Plan neuro following. psych following. MRI and CT brain noted. Pending transfer to higher level of care. Subjective Subjective late entry for 01/04 - events noted. CT ok. Objective Objective Last 24 Hour Vital Signs Date Time Temp Pulse Resp B/P (MAP) Pulse Ox O2 Delivery O2 Flow Rate FiO2 01/05/17 08:24 97.2 80 18 120/62 95 Nasal Cannula 2.0 01/05/17 04:00 79 01/05/17 04:00 97.3 74 16 115/67 96 Room Air 01/05/17 00:00 97.5 84 18 142/66 98 Nasal Cannula 2.0 01/05/17 00:00 84 01/04/17 20:00 98.2 91 18 126/64 98 Nasal Cannula 2.0 01/04/17 20:00 92 01/04/17 16:08 97.8 92 20 107/69 95 Room Air 01/04/17 16:00 88 01/04/17 12:00 79 01/04/17 11:23 98.0 88 20 115/65 95 Nasal Cannula 2.0 Intake and Output 01/05/17 01/06/17 19:00 07:00 Intake Total 75 ml Balance 75 ml IV Total 75 ml Height (Feet): 5 Height (Inches): 4.00 Weight (Pounds): 167 General Appearance: no apparent distress Cardiovascular: normal rate, regular rhythm Respiratory/Chest: lungs clear Abdomen: non tender, soft CELIO KERR Jan 05, 2017 08:49
[2017-01-05] MEDS: Dyna-Hex 2% Top Sol 2oz TOPIC SCH (09:05)
[2017-01-05] MEDS: Aspirin Baby 81mg ORAL SCH (09:06)
[2017-01-05] MEDS: clonazePAM 0.5mg tab ORAL SCH ×2 (09:06→20:56)
[2017-01-05] MEDS: Lacosamide 100 MG TABLET ORAL SCH ×2 (09:06→20:56)
[2017-01-05] MEDS: Topiramate 100mg tab ORAL SCH ×2 (09:07→17:45)
[2017-01-05] MEDS: Hydrocortisone 1% Cr 15gm TOPIC SCH ×2 (09:09→17:45)
[2017-01-05] MEDS ORDERED: Lidocaine 1% Plain 30 ml INJ ONE (09:50)
--- NOTE | 2017-01-05 10:57 | Pre-Procedure Note/Attestation ---
Pre-Procedure Note/Attestation Complete Prior to Procedure Planned Procedure: not applicable Procedure Narrative: Lumbar puncture Indications for Procedure Pre-Operative Diagnosis: Seizures Attestation I attest that I discussed the nature of the procedure; its benefits; risks and complications; and alternatives (and the risks and benefits of such alternatives ), prior to the procedure, with the patient (or the patient's legal b2b outside sales representative). I attest that, if there was a reasonable possibility of needing a blood transfusion, the patient (or the patient's legal b2b outside sales representative) was given the [facility] standardized written summary, pursuant to the Madhav Jagdish Blood Safety Act ([place] Health and Safety Code # 1645, as amended). I attest that I re-evaluated the patient just prior to the surgery and that there has been no change in the patient's H&P, except as documented below: RONNY MORELAND M.D. Jan 05, 2017 10:57
[2017-01-05 11:38] LABS: GLUCOSE,CSF 68 mg/dL (50-80)
--- NOTE | 2017-01-05 11:59 | Diagnostic Imaging Report ---
Indication: Headache, dizziness, history of seizures Technique: Informed consent obtained prior to commencement of the procedure. Skin was sterilely prepped and draped. Local anesthesia with 1% lidocaine. Under real-time fluoroscopy guidance, the thecal sac was accessed in the midline at the L3-4 level. Patient was turned into the lateral decubitus position, and spontaneous return of clear CSF was noted. Opening pressure was obtained, found to be 19 cm of H2O. Total of 10 mL of clear fluid then obtained and divided into 4 vials, sent to lab. Closing pressure obtained, found to be 17 cm H2O Total fluoroscopy time 0.8 minutes. Total dose area product 23 dGycm2 Comparison: None Findings: Interprocedural images document needle access into the thecal sac at the L3-4 level. Opening pressure 19 cm H2O. Closing pressure 17 cm H2O. Impression: Successful fluoroscopy guided lumbar puncture, as described
--- NOTE | 2017-01-05 12:02 | Neurology Progress Note ---
Interim History Interim History ROS Limited/Unobtainable: No Complaints: sleepy after recent sz event/ asking if she can get SSI Events: s/p LP Objective Physical Exam Last Vital Signs Date Time Temp Pulse Resp B/P (MAP) Pulse Ox O2 Delivery O2 Flow Rate FiO2 01/05/17 08:24 97.2 80 18 120/62 95 Nasal Cannula 2.0 Laboratory Tests Test 01/05/17 10:45 CSF Appearance Pending CSF Color Pending CSF WBC Pending CSF RBC Pending CSF Neutrophils % Pending CSF Lymphocytes % Pending CSF Monocytes % Pending CSF Crenated Cells Pending CSF Glucose 68 mg/dL (50-80) CSF Total Protein 50 mg/dL (15-45) H General: well developed, well nourished, no acute distress Head: normocophalic, atraumatic Neck: no rigidity Neurologic Exam Mental Status: awake, normal cognition, other - more awake/spek slowly Speech: normal speech, no dysarthia Language: normal language, no aphasia Cranial Nerve II: fundus normal, visual valera, no papilledema Cranial Nerves III, IV, : PERRLA, EOMI, pupils Cranial Nerve V: normal facial sensations, temporales function normal, masseters function normal, pterygoids function normal, other - L face numblness Cranial Nerve VII: normal facial expressions, other - L face droop when aske to show teeth Cranial Nerve VIII: normal hearing, no nystagmus Cranial Nerve IX: normal palate elevation, gag response Cranial Nerve X: no voice hoarseness Cranial Nerve XI: SCM symmetric, trapezii function normal Cranial Nerve XII: tongue midline, no tongue atrophy/fasciculations Motor System: other - L hemiplegia with poor efforts Sensory: other - L hemisensory loss incl. L face on midline Coordination: other - normal on Right Deep Tendon Reflexes: 2+ bicep (L), 2+ bicep (R), 2+ tricep (L), 2+ tricep (R) , 2+ brachioradialis (L), 2+ brachioradialis (R), 2+ knee (L), 2+ knee (R), 2+ ankle (L), 2+ ankle (R) Reflexes: flexor plantar (L), flexor plantar (R) Stance: other Gait: other Impression/Recommendations Problems: (1) recurrent L hemiplegia/hemisensory loss (2) chronic seizure d/o with pseudoseizures (3) Severe cephalgia muscle contraction type, r/o chronic migrain (4) Allergic drug rash (5) r/o multiple sclerosis Status: stable Recommendations #[id number] psych raghavendra; noted EEG nl MRI brain -repeated flexeryl 10mg tid d/c opiates pt/ot/acute rehab topamax 150mg bid d/w staff and pt,s mother. transfer to [facility] 24hrs facility start Vimpat 100mgbid LP today CHRISTOPH LYLE Jan 05, 2017 12:02
[2017-01-05 12:27] LABS: APPEARANCE,CSF CLEAR; COLOR,CSF COLORLESS
[2017-01-05 12:29] LABS: WHITE BLOOD CELL,CSF 0 /CU MM (0-5)
--- NOTE | 2017-01-05 15:02 | Nephrology Progress Note ---
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 (7) depression anxiety (8) Neuropathy Plan Pain management PRN Continue PT/OT Monitor neuro status Dr Monroy following- will f/u with recommendations Aspiration precaution Seizure precautions Awaiting transfer Psych following Continue current treatment plan Subjective Constitutional: Reports: weakness HEENT: Denies: no symptoms, eye pain, blurred vision, tearing, double vision, ear pain, ear discharge, nose pain, nose congestion, throat pain, throat swelling, mouth pain, mouth swelling, other Genitourinary: Denies: no symptoms, burning, discharge, frequency, flank pain, hematuria, incontinence, pain, urgency, other Neurologic/Psychiatric: Reports: headache Subjective In bed, still complains of headache and left sided weakness, RN stated that she had seizures this morning Objective Objective Last 24 Hour Vital Signs Date Time Temp Pulse Resp B/P (MAP) Pulse Ox O2 Delivery O2 Flow Rate FiO2 01/05/17 12:36 97.0 94 18 122/82 96 Nasal Cannula 2.0 01/05/17 12:00 98 01/05/17 08:24 97.2 80 18 120/62 95 Nasal Cannula 2.0 01/05/17 08:00 80 01/05/17 04:00 79 01/05/17 04:00 97.3 74 16 115/67 96 Room Air 01/05/17 00:00 97.5 84 18 142/66 98 Nasal Cannula 2.0 01/05/17 00:00 84 01/04/17 20:00 98.2 91 18 126/64 98 Nasal Cannula 2.0 01/04/17 20:00 92 01/04/17 16:08 97.8 92 20 107/69 95 Room Air 01/04/17 16:00 88 Intake and Output 01/05/17 01/06/17 19:00 07:00 Intake Total 315 ml Output Total 600 ml Balance -285 ml Intake Oral 240 ml IV Total 75 ml Output Urine Total 600 ml Laboratory Tests 01/05/17 10:45: CSF Appearance Clear, CSF Color Colorless, CSF WBC 0, CSF RBC 30, CSF Neutrophils % , CSF Lymphocytes % , CSF Monocytes % , CSF Crenated Cells 0, CSF Glucose 68, CSF Total Protein 50H 01/05/17 12:30: CSF Myelin Basic Protein [Pending], CSF Oligoclonal Bands [Pending] Height (Feet): 5 Height (Inches): 4.00 Weight (Pounds): 167 General Appearance: no apparent distress, alert EENT: normal ENT inspection Neck: normal alignment Cardiovascular: normal rate, no JVD Respiratory/Chest: lungs clear, normal breath sounds, no respiratory distress Abdomen: non tender, soft, no organomegaly Extremities: non-tender, normal inspection Neurologic: alert, oriented x 3, responsive, normal mood/affect Jahaira Braden N.P. Jan 05, 2017 15:02
[2017-01-05] MEDS ORDERED: Cyclobenzaprine 10mg Tab ORAL PRN (20:00)
--- NOTE | 2017-01-05 20:25 | General Progress Note ---
Assessment/Plan Status: stable Assessment/Plan somatoform, conversion, pseudoseizure, ro malingering (she is asking for ssi) -cont prozac -risperdal -klonotiffany -rec psychiatrist and therapy Subjective Neurologic/Psychiatric: Reports: anxiety, depressed, emotional problems Allergies: Coded Allergies: VALPROIC ACID (Verified Allergy, Severe, Rash, 12/30/16) Dairy (Verified Allergy, Unknown, 12/23/15) LEVETIRACETAM (Verified Allergy, Unknown, 12/28/16) MORPHINE (Verified Allergy, Unknown, Itching, 12/22/15) PHENYTOIN (Verified Allergy, Unknown, 12/28/16) Whole Milk (Verified Allergy, Unknown, 12/23/15) Subjective the pt insists that she has had cva in apr/ she gets mad and defensive when we tell her she has no CVA and imaging is normal. the pt is asking to fill out disability forms for her. the pt stated that she cannot go back to work nor she could support herself Objective Last 24 Hour Vital Signs Date Time Temp Pulse Resp B/P (MAP) Pulse Ox O2 Delivery O2 Flow Rate FiO2 01/05/17 19:52 88 01/05/17 19:25 97.7 80 20 99/63 96 Nasal Cannula 01/05/17 16:00 87 01/05/17 15:35 98.8 91 18 122/97 97 Room Air 01/05/17 12:36 97.0 94 18 122/82 96 Nasal Cannula 2.0 01/05/17 12:00 98 01/05/17 08:24 97.2 80 18 120/62 95 Nasal Cannula 2.0 01/05/17 08:00 80 01/05/17 04:00 79 01/05/17 04:00 97.3 74 16 115/67 96 Room Air 01/05/17 00:00 97.5 84 18 142/66 98 Nasal Cannula 2.0 01/05/17 00:00 84 Intake and Output 01/05/17 01/06/17 19:00 07:00 Intake Total 810 ml 75 ml Output Total 600 ml Balance 210 ml 75 ml Intake Oral 360 ml IV Total 450 ml 75 ml Output Urine Total 600 ml Laboratory Tests 01/05/17 10:45: CSF Appearance Clear, CSF Color Colorless, CSF WBC 0, CSF RBC 30, CSF Neutrophils % , CSF Lymphocytes % , CSF Monocytes % , CSF Crenated Cells 0, CSF Glucose 68, CSF Total Protein 50H 01/05/17 12:30: CSF Myelin Basic Protein [Pending], CSF Oligoclonal Bands [Pending] Height (Feet): 5 Height (Inches): 4.00 Weight (Pounds): 167 General Appearance: no apparent distress, alert Neurologic: alert, oriented x 3, responsive, depressed affect Dahlia Stack M.D. Jan 05, 2017 20:25
[2017-01-06 03:09] VITALS: BP 94/53
[2017-01-06 08:25] VITALS: BP 107/65
[2017-01-06] MEDS: Milk of Magnesia 30ml Ud ORAL PRN (08:37)
[2017-01-06] MEDS: Dyna-Hex 2% Top Sol 2oz TOPIC SCH (08:37)
[2017-01-06] MEDS: Aspirin Baby 81mg ORAL SCH (08:37)
[2017-01-06] MEDS: Lacosamide 100 MG TABLET ORAL SCH ×2 (08:37→21:12)
[2017-01-06] MEDS: clonazePAM 0.5mg tab ORAL SCH ×2 (08:37→21:12)
[2017-01-06] MEDS: Topiramate 100mg tab ORAL SCH ×2 (08:37→17:33)
[2017-01-06] MEDS: Hydrocortisone 1% Cr 15gm TOPIC SCH ×2 (08:38→17:34)
[2017-01-06] MEDS ORDERED: 1/2 NS 1000ml IV ONE (10:30)
[2017-01-06 10:31] LABS: CSF COMMENT PATHOLOGIST COMMENT
[2017-01-06] MEDS: traMADol 50mg tab ORAL PRN ×2 (11:25→17:34)
[2017-01-06 12:37] VITALS: BP 140/83
[2017-01-06 14:22] VITALS: BP 137/76
[2017-01-06] MEDS: LORazepam Inj 2mg/ml 1ml IV PRN ×2 (14:26→20:18)
--- NOTE | 2017-01-06 16:07 | Neurology Progress Note ---
Interim History Interim History ROS Limited/Unobtainable: No Complaints: i had another sz Events: stable Objective Physical Exam Last Vital Signs Date Time Temp Pulse Resp B/P (MAP) Pulse Ox O2 Delivery O2 Flow Rate FiO2 01/06/17 14:22 97.7 101 18 137/76 97 Nasal Cannula 2.0 General: well developed, well nourished, no acute distress Head: normocophalic, atraumatic Neck: no rigidity Neurologic Exam Mental Status: awake, normal cognition, other - more awake/spek slowly Speech: normal speech, no dysarthia Language: normal language, no aphasia Cranial Nerve II: fundus normal, visual valera, no papilledema Cranial Nerves III, IV, : PERRLA, EOMI, pupils Cranial Nerve V: normal facial sensations, temporales function normal, masseters function normal, pterygoids function normal, other - L face numblness Cranial Nerve VII: normal facial expressions, other - L face droop when aske to show teeth Cranial Nerve VIII: normal hearing, no nystagmus Cranial Nerve IX: normal palate elevation, gag response Cranial Nerve X: no voice hoarseness Cranial Nerve XI: SCM symmetric, trapezii function normal Cranial Nerve XII: tongue midline, no tongue atrophy/fasciculations Motor System: other - L hemiplegia with poor efforts Sensory: other - L hemisensory loss incl. L face on midline Coordination: other - normal on Right Deep Tendon Reflexes: 2+ bicep (L), 2+ bicep (R), 2+ tricep (L), 2+ tricep (R) , 2+ brachioradialis (L), 2+ brachioradialis (R), 2+ knee (L), 2+ knee (R), 2+ ankle (L), 2+ ankle (R) Reflexes: flexor plantar (L), flexor plantar (R) Stance: other Gait: other Impression/Recommendations Problems: (1) recurrent L hemiplegia/hemisensory loss (2) chronic seizure d/o with pseudoseizures (3) Severe cephalgia muscle contraction type, r/o chronic migrain (4) r/o multiple sclerosis Status: stable Recommendations #[id number] psych raghavendra; noted EEG nl MRI brain -repeated flexeryl 10mg tid d/c opiates pt/ot/acute rehab topamax 150mg bid d/w staff and pt,s mother. transfer to [facility]G 24hrs facility start Vimpat 100mgbid LP ni penf Igg synthesis CHRISTOPH LYLE Jan 06, 2017 16:07
[2017-01-06 16:18] VITALS: BP 107/58
--- NOTE | 2017-01-06 18:26 | General Progress Note ---
Assessment/Plan Status: stable Assessment/Plan ro malingering anxiety d/o -cont prozac -risperdal -klonopin -rec psychiatrist and therapy Subjective Allergies: Coded Allergies: VALPROIC ACID (Verified Allergy, Severe, Rash, 12/30/16) Dairy (Verified Allergy, Unknown, 12/23/15) LEVETIRACETAM (Verified Allergy, Unknown, 12/28/16) MORPHINE (Verified Allergy, Unknown, Itching, 12/22/15) PHENYTOIN (Verified Allergy, Unknown, 12/28/16) Whole Milk (Verified Allergy, Unknown, 12/23/15) Subjective the pt insists that she has had cva in apr/ she gets mad and defensive when we tell her she has no CVA and imaging is normal. the pt is asking to fill out disability forms for her. daughter requested to speak with me initially defensive. elmira barba present in room when i spoke with pt. the pt raised her left arm last week and ask renaldo barba to put cream on her rash. Objective Last 24 Hour Vital Signs Date Time Temp Pulse Resp B/P (MAP) Pulse Ox O2 Delivery O2 Flow Rate FiO2 01/06/17 16:18 98.1 107 18 107/58 95 Nasal Cannula 2.0 01/06/17 16:00 103 01/06/17 14:22 97.7 101 18 137/76 97 Nasal Cannula 2.0 01/06/17 14:17 140 01/06/17 12:37 98.2 109 18 140/83 96 Nasal Cannula 2.0 01/06/17 12:00 110 01/06/17 08:25 97.5 78 18 107/65 99 Nasal Cannula 2.0 01/06/17 08:00 81 01/06/17 04:00 69 01/06/17 03:09 96.5 65 18 94/53 97 Nasal Cannula 01/06/17 00:00 71 01/05/17 23:05 97.3 70 18 95/53 98 Nasal Cannula 01/05/17 19:52 88 01/05/17 19:25 97.7 80 20 99/63 96 Nasal Cannula Intake and Output 01/06/17 01/07/17 19:00 07:00 Intake Total 240 ml Output Total 550 ml Balance -310 ml Intake Oral 240 ml Output Urine Total 550 ml Height (Feet): 5 Height (Inches): 4.00 Weight (Pounds): 167 General Appearance: no apparent distress, alert, overweight Neurologic: alert, oriented x 3, responsive, depressed affect Dahlia Stack M.D. Jan 06, 2017 18:26
[2017-01-06 20:00] VITALS: BP 102/79
--- NOTE | 2017-01-06 22:20 | Nephrology Progress Note ---
Assessment/Plan Problem List: (1) Seizure disorder (2) left hemiparsis/hemisensory loss Plan neuro following. psych following. MRI and CT brain noted. Pending transfer to higher level of care. Subjective Subjective no new c/o Objective Objective Last 24 Hour Vital Signs Date Time Temp Pulse Resp B/P (MAP) Pulse Ox O2 Delivery O2 Flow Rate FiO2 01/06/17 20:00 98.1 121 23 102/79 96 Nasal Cannula 2.0 01/06/17 16:18 98.1 107 18 107/58 95 Nasal Cannula 2.0 01/06/17 16:00 103 01/06/17 14:22 97.7 101 18 137/76 97 Nasal Cannula 2.0 01/06/17 14:17 140 01/06/17 12:37 98.2 109 18 140/83 96 Nasal Cannula 2.0 01/06/17 12:00 110 01/06/17 08:25 97.5 78 18 107/65 99 Nasal Cannula 2.0 01/06/17 08:00 81 01/06/17 04:00 69 01/06/17 03:09 96.5 65 18 94/53 97 Nasal Cannula 01/06/17 00:00 71 01/05/17 23:05 97.3 70 18 95/53 98 Nasal Cannula Intake and Output 01/06/17 01/07/17 19:00 07:00 Intake Total 1185 ml Output Total 550 ml Balance 635 ml Intake Oral 360 ml IV Total 825 ml Output Urine Total 550 ml Height (Feet): 5 Height (Inches): 4.00 Weight (Pounds): 167 General Appearance: no apparent distress Cardiovascular: normal rate, regular rhythm Respiratory/Chest: lungs clear Abdomen: non tender, soft CELIO KERR Jan 06, 2017 22:20
[2017-01-07] VITALS: BP 104/61
[2017-01-07 04:00] VITALS: BP 105/62
[2017-01-07 08:00] VITALS: BP 103/60
[2017-01-07] MEDS: Dyna-Hex 2% Top Sol 2oz TOPIC SCH (08:48)
[2017-01-07] MEDS: Milk of Magnesia 30ml Ud ORAL PRN (08:48)
[2017-01-07] MEDS: clonazePAM 0.5mg tab ORAL SCH (08:49)
[2017-01-07] MEDS: Topiramate 100mg tab ORAL SCH (08:49)
[2017-01-07] MEDS: traMADol 50mg tab ORAL PRN (08:50)
[2017-01-07] MEDS: Aspirin Baby 81mg ORAL SCH (08:52)
[2017-01-07] MEDS: Hydrocortisone 1% Cr 15gm TOPIC SCH (08:53)
[2017-01-07] MEDS: Lacosamide 100 MG TABLET ORAL SCH (08:53)
[2017-01-07 12:00] VITALS: BP 112/77
--- NOTE | 2017-01-07 12:03 | General Progress Note ---
Assessment/Plan Assessment/Plan ro malingering anxiety d/o axis II -cont prozac -risperdal -klonopin -rec psychiatrist and therapy Subjective Neurologic/Psychiatric: Reports: anxiety, depressed, emotional problems Allergies: Coded Allergies: VALPROIC ACID (Verified Allergy, Severe, Rash, 12/30/16) Dairy (Verified Allergy, Unknown, 12/23/15) LEVETIRACETAM (Verified Allergy, Unknown, 12/28/16) MORPHINE (Verified Allergy, Unknown, Itching, 12/22/15) PHENYTOIN (Verified Allergy, Unknown, 12/28/16) Whole Milk (Verified Allergy, Unknown, 12/23/15) Subjective the pt moved her hand/fingers per Yohana RN. pt is the same no seizure d/o. Objective Last 24 Hour Vital Signs Date Time Temp Pulse Resp B/P (MAP) Pulse Ox O2 Delivery O2 Flow Rate FiO2 01/07/17 08:00 97.2 72 19 103/60 99 Nasal Cannula 2.0 01/07/17 08:00 74 01/07/17 04:00 79 01/07/17 04:00 97.5 80 20 105/62 97 Nasal Cannula 2.0 01/07/17 00:00 90 01/07/17 00:00 97.9 93 20 104/61 97 Nasal Cannula 2.0 01/06/17 20:00 102 01/06/17 20:00 98.1 121 23 102/79 96 Nasal Cannula 2.0 01/06/17 16:18 98.1 107 18 107/58 95 Nasal Cannula 2.0 01/06/17 16:00 103 01/06/17 14:22 97.7 101 18 137/76 97 Nasal Cannula 2.0 01/06/17 14:17 140 01/06/17 12:37 98.2 109 18 140/83 96 Nasal Cannula 2.0 Height (Feet): 5 Height (Inches): 4.00 Weight (Pounds): 167 General Appearance: no apparent distress, alert, overweight Neurologic: alert, oriented x 3, responsive, depressed affect Dahlia Stack M.D. Jan 07, 2017 12:03
--- NOTE | 2017-01-07 12:58 | Neurology Progress Note ---
Interim History Interim History ROS Limited/Unobtainable: No Complaints: i had another sz, witnessed generalised sz Events: started moving hands toes x 2sx Objective Physical Exam Last Vital Signs Date Time Temp Pulse Resp B/P (MAP) Pulse Ox O2 Delivery O2 Flow Rate FiO2 01/07/17 12:00 97.7 96 20 112/77 98 Nasal Cannula 2.0 General: well developed, well nourished, no acute distress Head: normocophalic, atraumatic Neck: no rigidity Neurologic Exam Mental Status: awake, normal cognition, other - more awake/spek slowly Speech: normal speech, no dysarthia Language: normal language, no aphasia Cranial Nerve II: fundus normal, visual valera, no papilledema Cranial Nerves III, IV, : PERRLA, EOMI, pupils Cranial Nerve V: normal facial sensations, temporales function normal, masseters function normal, pterygoids function normal, other - L face numblness Cranial Nerve VII: normal facial expressions, other - L face droop when aske to show teeth Cranial Nerve VIII: normal hearing, no nystagmus Cranial Nerve IX: normal palate elevation, gag response Cranial Nerve X: no voice hoarseness Cranial Nerve XI: SCM symmetric, trapezii function normal Cranial Nerve XII: tongue midline, no tongue atrophy/fasciculations Motor System: other - L hemiplegia with movements both hands,feet Sensory: other - L hemisensory loss incl. L face on midline Coordination: other - normal on Right Deep Tendon Reflexes: 2+ bicep (L), 2+ bicep (R), 2+ tricep (L), 2+ tricep (R) , 2+ brachioradialis (L), 2+ brachioradialis (R), 2+ knee (L), 2+ knee (R), 2+ ankle (L), 2+ ankle (R) Reflexes: flexor plantar (L), flexor plantar (R) Stance: other Gait: other Impression/Recommendations Problems: (1) recurrent L hemiplegia/hemisensory loss (2) chronic seizure d/o with pseudoseizures (3) Severe cephalgia muscle contraction type, r/o chronic migrain (4) r/o multiple sclerosis Status: stable Recommendations #[id number] psych raghavendra; noted EEG nl MRI brain -repeated flexeryl 10mg tid d/c opiates pt/ot/acute rehab topamax 150mg bid -2oomg bid d/w staff and pt,s mother. transfer to VIDEO-EEG 24hrs facility start Vimpat 100mgbid now 200bid LP done CHRISTOPH LYLE Jan 07, 2017 12:58
[2017-01-07] MEDS ORDERED: 1/2 NS 1000ml IV ONE (13:29)
[2017-01-07] MEDS ORDERED: MOM30 ML ORAL (16:10)
[2017-01-07] MEDS ORDERED: Topiramate 100mg tab ORAL SCH (18:00)
[2017-01-07] MEDS ORDERED: Lacosamide 100 MG TABLET ORAL SCH (21:00)
--- NOTE | 2017-01-08 03:15 | Progress Note ---
DATE: 01/07/2017 Subjective: This is a 41 years old female, came to the emergency room for anemia. She is currently doing better. Hemoglobin is also improved. OBJECTIVE: HEENT: NAD. CHEST: Bilaterally clear. CARDIOVASCULAR: Regular rhythm. ABDOMEN: Soft. EXTREMITIES: CCE. ASSESSMENT AND PLAN: 1. Anemia. 2. Generalized weakness. She is better. Discharge plan home with iron and folic acid. Follow up with Dr. Ames. Lamont Smith M.D. DR: KARLENE JOB#: [id number] CC:
--- NOTE | 2017-01-10 08:08 | Discharge Summary ---
Discharge Summary Hospital Course Date of Admission Dec 28, 2016 at 07:31 Date of Discharge Jan 07, 2017 at 13:30 Admitting Diagnosis CVA/Seizure HPI Lu Bailey is a 41 year old female who was admitted on Dec 28, 2016 at 07: 31 for Cerebral Vascular Accident, Seizure Hospital Course dc summary #[id number] Discharge Discharge Disposition Patient was transferred to [facility] hospital Discharge Diagnoses: Discharge Instructions Discharge Instructions Special Instructions I have been assigned to complete a D/C Summary on this account. I was not involved in the patient management Chayo Palacios NP (Vanchtein) Jan 10, 2017 08:08
--- NOTE | 2017-01-11 08:31 | Discharge Summary 2 SIG ---
DATE OF ADMISSION: 12/28/2016 DATE OF DISCHARGE: 01/07/2017 Reason For Admission: 41-year-old female presented to emergency room after having seizure earlier that day. She reported to have slurred speech with facial droop and left arm and left leg weakness. The patient reported history of prior CVA. She was taking aspirin and statin . At that time, the patient denied any headache, chest pain, or shortness of breath. Workup in the emergency room revealed stable vital signs. CT of the head revealed no acute intracranial pathology. CTA of the brain revealed no signs of large vessel disease (recommended by [facility] stroke team). Right femoral line was placed. Findings were discussed with the stroke team at [facility]. The patient was out of the window for thrombolytic therapy. Upon arrival, aspirin given in the emergency department. The patient was admitted for further management. The patient noted seizure which started at 3 a.m. on that day and slurred speech with facial droop and left arm and left leg weakness about 3 1/2 -4 hours prior to arrival. The patient was admitted to Medical/Surgical floor. ADMITTING DIAGNOSES: 1. Left hemiplegia/hemisensory loss, 2. Rule out cerebrovascular accident. 3. Exacerbation of generalized seizure disorder with secondary generalization and/or pseudoseizures. 4. Depression. 5. Neurocysticercosis, chronic. Hospital Stay: The patient admitted. Neurology consult and Psychiatric consult were requested. The patient undergone MRI of the brain, which was negative for any acute intracranial pathology. The patient was continued on Depakote and Klonopin, and started on Topamax. EEG was ordered. EEG was normal awake and stage 1 sleep electroencephalogram as read by neurologist. MRI of the brain revealed no definite evidence of acute infarct, intracranial bleeding, mass effect or contrast-enhancing lesion. Nonspecific deep white matter T2, hyperintensity, slightly more numerous than on the prior study, could represent small ischemic foci or foci of demyelination. The patient started to work with physical and occupational therapy; however, the patient was having intermittent seizures off and on as well as severe headache. The patient was started on Flexeril for muscle contraction-type headache. Topamax was titrated. The patient started on the Vimpat. Lumbar puncture was done. Myelin basic protein was within normal limits and total protein was slightly elevated at 50. MRI of the brain was repeated and again revealed no acute intracranial pathology, but showed small foci of T2 hyperintensity within the bilateral deep white matter and basal ganglia, more conspicuous than on earlier study of 01/03/2017 that could represent small foci of ischemia versus demyelination. The first study was done on 12/30/2016 and that was on 01/03/2017. CT of the head was repeated as well and also revealed no acute intracranial pathology, but chronic cysticercosis with calcification in left parietal lobe without mass effect, midline shift, or edema. Transfer was arranged for video EEG. Psychiatrist also seen the patient and diagnosed the patient with posttraumatic stress disorder, possible conversion disorder. Psychiatrist optimized medication regimen. The patient started on Prozac. Continue Klonopin and was taken off Seroquel. Neurologist recommended transfer the patient to video EEG 24 hours facility. Transfer was arranged to [facility]. The patient subsequently was transferred. FINAL DIAGNOSES: 1. Exacerbation of generalized seizure disorder. 2. 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 3. Recurrent left hemiplegia/hemiparesis losses. 4. Severe cephalgia, muscle contraction type, possible chronic migraine. 5. Possible multiple sclerosis. 6. Chronic neurocysticercosis. 7. Posttraumatic stress disorder. 8. Possible conversion disorder. Discharge Medications: List of medications was sent to accepting facility. Discharge Instructions: The patient was transferred to [facility] hospital for 24 hours video EEG. Follow up with the neurologist at the accepting facility. Miguel Angel Ames M.D. I have been assigned to dictate discharge summary on this account and I was not involved in the patient's management. Chayo HarveyNortheast Health Systemtony N.P. DR: TIAN JOB#: [id number] CC: RAMY
--- NOTE | 2017-01-11 15:07 | Diagnostic Imaging Report ---
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 The right upper extremity was prepped with alcohol. All elements of maximal sterile barrier technique were followed including usage of a cap, mask, sterile gown, sterile gloves, hand hygiene and a large sterile sheet. Sonographic evaluation of the upper extremity was performed demonstrating a patent and compressible brachial vein. Access was obtained under real-time ultrasound guidance and digital image was saved and archived. An .018 wire was introduced. Needle exchanged for a 5 Romansh peel-away sheath. Measurements were obtained. A 5 Romansh dual-lumen Power PICC line catheter was cut to 39 cm and introduced over the wire. Peel-away sheath and wire were removed.Catheter was secured to the skin using 2-0 Prolene suture. Both ports aspirate and flush easily. Fluoroscopic Images show distal tip in the superior vena cava. 0.4 minute total fluoroscopic time. Impression: Successful placement of an upper extremity PICC line catheter
== END 2017-01-07 13:30 | disposition short-term general hospital (02) | DRG 53 ==
LOC: EMR 06:45 → 2E 07:31 → EDBEDREQ 11:14 → 2E 13:04
PROC: 02HV33Z Insertion of Infusion Device into Superior Vena Cava, Percutaneous Approach (ICD-10-PCS; principal; 2017-01-05)
PROC: 009U3ZX Drainage of Spinal Canal, Percutaneous Approach, Diagnostic (ICD-10-PCS; 2017-01-05)
DX: G40.409 Other generalized epilepsy and epileptic syndromes, not intractable, without status epilepticus (principal); B69.0 Cysticercosis of central nervous system; G81.94 Hemiplegia, unspecified affecting left nondominant side; G62.9 Polyneuropathy, unspecified; G35 Multiple sclerosis; G44.89 Other headache syndrome; F41.8 Other specified anxiety disorders; F41.0 Panic disorder [episodic paroxysmal anxiety]; Z88.6 Allergy status to analgesic agent; Z88.1 Allergy status to other antibiotic agents; Z88.8 Allergy status to other drugs, medicaments and biological substances; G40.209 Localization-related (focal) (partial) symptomatic epilepsy and epileptic syndromes with complex partial seizures, not intractable, without status epilepticus; F43.10 Post-traumatic stress disorder, unspecified; Z86.73 Personal history of transient ischemic attack (TIA), and cerebral infarction without residual deficits; Z85.43 Personal history of malignant neoplasm of ovary; Z90.710 Acquired absence of both cervix and uterus; E11.9 Type 2 diabetes mellitus without complications; E78.5 Hyperlipidemia, unspecified; F44.4 Conversion disorder with motor symptom or deficit; R07.89 Other chest pain
CPT/HCPCS: 36415; 36569; 70450; 70496; 70551; 70553; 74230; 76937; 80053; 80061; 80076; 80164; 82607; 82945; 83873; 83916; 84157; 85025; 85610; 85651; 85730; 86039; 89051; 90630; 93005; 93970; 95819; A9585

== ENCOUNTER 2017-07-10 19:02 | Emergency (ER) | payer MEDICAID ==
[~2017-07-10] VITALS: Ht 162.6 cm; Wt 79.4 kg
[~2017-07-10 19:02] MED LIST changes: +MOM30 ML ORAL
[2017-07-10] MEDS ORDERED: Norco 5mg/325mg tab ORAL ONE (19:30)
[2017-07-10] MEDS ORDERED: LORazepam 1mg tab ORAL ONE (19:30)
[2017-07-10] MEDS ORDERED: NORCO 5-325 TA1 EACH ORAL (20:10)
[2017-07-10] MEDS ORDERED: IBUPROFEN600 MG ORAL (20:10)
--- NOTE | 2017-07-10 20:23 | Emergency Room Report ---
History of Present Illness General Chief Complaint: Upper Extremity Injury Present Illness HPI Patient is a 42-year-old female who presented after increased right-sided shoulder pain. Patient reportedly had a seizure yesterday. Patient states that she had told that she felt to her right side. She reports having increased pain to the right side of her neck as well as to her right shoulder. She states that she has prior history of neurocysticercosis. She reports taking Klonopin as well as Lamictal for seizures. Allergies: Coded Allergies: VALPROIC ACID (Verified Allergy, Severe, Rash, 12/30/16) Dairy (Verified Allergy, Unknown, 12/23/15) LEVETIRACETAM (Verified Allergy, Unknown, 12/28/16) MORPHINE (Verified Allergy, Unknown, Itching, 12/22/15) PHENYTOIN (Verified Allergy, Unknown, 12/28/16) Whole Milk (Verified Allergy, Unknown, 12/23/15) Patient History Past Medical History: see triage record Reviewed Nursing Documentation: PMH: Agreed; PSxH: Agreed Nursing Documentation-PMH Hx Cardiac Problems: Yes Hx Hypertension: No Hx Pacemaker: No Hx Asthma: No Hx COPD: No Hx Diabetes: No Hx Cancer: Yes - ovarian,TOTAL HYSTERECTOMY IN 2005 Hx Gastrointestinal Problems: No Hx Neurological Problems: Yes Hx Cerebrovascular Accident: Yes Hx Transient Ischemic Attacks: Yes Hx Dementia: No Hx Meningitis: Yes Hx Seizures: Yes Hx Epilepsy: Yes Hx Dizziness: Yes Hx Headaches: Yes Hx Weakness: Yes Review of Systems All Other Systems: negative except mentioned in HPI Physical Exam Vital Signs Date Time Temp Pulse Resp B/P (MAP) Pulse Ox O2 Delivery O2 Flow Rate FiO2 07/10/17 19:09 98.0 96 16 143/105 95 Room Air 98.1 General Appearance: well appearing, no apparent distress, alert, GCS 15 Head: normocephalic, atraumatic ENT: hearing grossly normal, normal voice Neck: full range of motion, supple, limited range of motion Respiratory: lungs clear, no rhonchi, no respiratory distress, speaking full sentences Gastrointestinal: normal inspection, normal bowel sounds, non tender Musculoskeletal: normal inspection, no calf tenderness Neurologic: normal inspection, alert, oriented x3, responsive, vehicle mechanic III-XII nml as tested, normal gait Psychiatric: mood/affect normal Skin: no rash Medical Decision Making Diagnostic Impression: Primary Impression: Contusion of shoulder, right ER Course Patient presented for shoulder pain. Differential diagnoses included was not limited to fracture, dislocation, a.c. separation, septic joint. Because of complexity of patient's case imaging studies were ordered. Patient was given oral pain medications. X-ray imaging of the right shoulder 3 views interpreted by me showed normal bony alignment without fracture. Patient was placed in a sling. She is advised follow-up for recheck with primary care physician. Patient may require MRI if pain persists. The patient was noted to have no midline neck tenderness. Last Vital Signs Date Time Temp Pulse Resp B/P (MAP) Pulse Ox O2 Delivery O2 Flow Rate FiO2 07/10/17 19:31 98.0 07/10/17 19:09 96 16 143/105 95 Room Air Status: improved Disposition: HOME, SELF-CARE Condition: Stable Scripts Hydrocodone Bit/Acetaminophen 5-325* (NORCO 5-325*) 1 Each Tablet 1 TAB ORAL Q6H PRN for For Pain, #10 TAB 0 Refills Prov: Alfred Randhawa 07/10/17 Ibuprofen* (MOTRIN*) 600 Mg Tablet 600 MG ORAL Q8H PRN for For Pain, #30 TAB 0 Refills Prov: Alfred Randhawa 07/10/17 Patient Instructions: Shoulder Separation Alfred Randhawa Jul 10, 2017 20:23
[2017-07-10 20:35] VITALS: BP 135/88
[2017-07-10 20:40] VITALS: BP 143/105
--- NOTE | 2017-07-11 14:15 | Diagnostic Imaging Report ---
Indication: Pain, trauma, status post fall Technique: 3 views of the right shoulder Comparison: none Findings: No acute fractures. No dislocations. Joint spaces are preserved Impression: Negative
== END 2017-07-10 20:40 | disposition home or self-care (01) ==
LOC: EMR 20:05
DX: S40.011A Contusion of right shoulder, initial encounter (principal); W19.XXXA Unspecified fall, initial encounter; Y92.9 Unspecified place or not applicable; Z88.8 Allergy status to other drugs, medicaments and biological substances; Z88.5 Allergy status to narcotic agent; Z86.73 Personal history of transient ischemic attack (TIA), and cerebral infarction without residual deficits
CPT/HCPCS: 99284

== ENCOUNTER 2017-11-11 09:19 | Emergency (ER) | payer MEDICAID ==
[~2017-11-11] VITALS: Ht 162.6 cm; Wt 68.0 kg
--- NOTE | 2017-11-11 09:50 | Emergency Room Report ---
History of Present Illness General Chief Complaint: Seizure Source: Patient, Medical Record Present Illness HPI This patient has a history of seizure disorder. She is well-known to [facility]. She states that she has a seizure this morning. She is taking Lamictal and lorazepam. She denies recent illness. She has no other complaints. Allergies: Coded Allergies: VALPROIC ACID (Verified Allergy, Severe, Rash, 12/30/16) Dairy (Verified Allergy, Unknown, 12/23/15) LEVETIRACETAM (Verified Allergy, Unknown, 12/28/16) MORPHINE (Verified Allergy, Unknown, Itching, 12/22/15) PHENYTOIN (Verified Allergy, Unknown, 12/28/16) Whole Milk (Verified Allergy, Unknown, 12/23/15) Patient History Past Medical History: see triage record, CVA/TIA, seizures Past Surgical History: hysterectomy Social History: Denies: smoking, alcohol use, drug use Last Menstrual Period: 2005 Reviewed Nursing Documentation: PMH: Agreed; PSxH: Agreed Nursing Documentation-PMH Past Medical History: No History, Except For Hx Cardiac Problems: Yes Hx Hypertension: No Hx Pacemaker: No Hx Asthma: No Hx COPD: No Hx Diabetes: No Hx Cancer: Yes - ovarian,TOTAL HYSTERECTOMY IN 2005 Hx Gastrointestinal Problems: No Hx Neurological Problems: Yes Hx Cerebrovascular Accident: Yes Hx Transient Ischemic Attacks: Yes Hx Dementia: No Hx Meningitis: Yes Hx Seizures: Yes Hx Epilepsy: Yes Hx Dizziness: Yes Hx Headaches: Yes Hx Weakness: Yes Review of Systems All Other Systems: negative except mentioned in HPI Physical Exam Vital Signs Date Time Temp Pulse Resp B/P (MAP) Pulse Ox O2 Delivery O2 Flow Rate FiO2 11/11/17 09:26 97.9 100 18 139/99 98 Room Air 97.9 Sp02 EP Interpretation: reviewed, normal General Appearance: no apparent distress, alert, GCS 15, non-toxic Head: normocephalic, atraumatic Eyes: bilateral eye normal inspection, bilateral eye PERRL ENT: hearing grossly normal, normal pharynx, no angioedema, normal voice Neck: full range of motion, supple/symm/no masses Respiratory: chest non-tender, lungs clear, normal breath sounds, no respiratory distress, no retraction, no accessory muscle use, speaking full sentences Cardiovascular #1: regular rate, rhythm, no edema Gastrointestinal: normal bowel sounds, non tender, soft, non-distended, no guarding, no rebound Rectal: deferred Musculoskeletal: back normal, gait/station normal, normal range of motion, non- tender Neurologic: alert, oriented x3, responsive, motor strength/tone normal, sensory intact, speech normal Psychiatric: judgement/insight normal, memory normal, mood/affect normal, no suicidal/homicidal ideation Skin: normal color, no rash, warm/dry, well hydrated Medical Decision Making Diagnostic Impression: Primary Impression: Seizure disorder ER Course I suspect the seizures that the patient is presenting with is non-emergent in etiology. The patient has a history of seizures in the past and has returned to baseline with normal neurologic status. The patient is not immunocompromised with no history of known structural brain disease. The patient does not have persistent altered mental status, fever or new focal neurologic deficit. Laboratory workup was noncontributory. I doubt meningitis so a lumbar puncture was not performed. The patient was counseled that, though unlikely, the possibility of an emergent cause of seizure may still be present and that the patient should return immediately if symptoms persist or worsen. I believe the patient is stable for discharge to followup with the primary care provider for further workup. Laboratory Tests Test 11/11/17 09:29 11/11/17 10:00 11/11/17 12:30 Sodium Level 141 MMOL/L (136-145) Potassium Level 3.5 MMOL/L (3.5-5.1) Chloride Level 107 MMOL/L (98-107) Carbon Dioxide Level 23 MMOL/L (21-32) Anion Gap 11 mmol/L (5-15) Blood Urea Nitrogen 19 mg/dL (7-18) H Creatinine 1.0 MG/DL (0.55-1.30) Estimate Glomerular Filtration Rate > 60 mL/min (>60) Glucose Level 146 MG/DL (74-106) H Calcium Level 8.8 MG/DL (8.5-10.1) Total Bilirubin 0.5 MG/DL (0.2-1.0) Aspartate Amino Transferase (AST) 26 U/L (15-37) Alanine Aminotransferase (ALT) 33 U/L (12-78) Alkaline Phosphatase 102 U/L (46-116) Total Creatine Kinase 305 U/L (26-308) Total Protein 7.4 G/DL (6.4-8.2) Albumin 3.8 G/DL (3.4-5.0) Globulin 3.6 g/dL Albumin/Globulin Ratio 1.1 (1.0-2.7) Serum Alcohol < 3 mg/dL White Blood Count 6.8 K/UL (4.8-10.8) Red Blood Count 5.10 M/UL (4.20-5.40) Hemoglobin 14.3 G/DL (12.0-16.0) Hematocrit 43.7 % (37.0-47.0) Mean Corpuscular Volume 86 FL (80-99) Mean Corpuscular Hemoglobin 28.1 PG (27.0-31.0) Mean Corpuscular Hemoglobin Concent 32.8 G/DL (32.0-36.0) Red Cell Distribution Width 12.0 % (11.6-14.8) Platelet Count 310 K/UL (150-450) Mean Platelet Volume 6.1 FL (6.5-10.1) L Neutrophils (%) (Auto) 65.9 % (45.0-75.0) Lymphocytes (%) (Auto) 27.6 % (20.0-45.0) Monocytes (%) (Auto) 5.6 % (1.0-10.0) Eosinophils (%) (Auto) 0.4 % (0.0-3.0) Basophils (%) (Auto) 0.5 % (0.0-2.0) Urine Color Yellow Urine Appearance Slightly cloudy Urine pH 5 (4.5-8.0) Urine Specific [place] 1.020 (1.005-1.035) Urine Protein 1+ (NEGATIVE) H Urine Glucose (UA) Negative (NEGATIVE) Urine Ketones Negative (NEGATIVE) Urine Occult Blood Negative (NEGATIVE) Urine Nitrite Negative (NEGATIVE) Urine Bilirubin Negative (NEGATIVE) Urine Urobilinogen Normal MG/DL (0.0-1.0) Urine Leukocyte Esterase 1+ (NEGATIVE) H Urine RBC 0-2 /HPF (0 - 2) Urine WBC 2-4 /HPF (0 - 2) Urine Squamous Epithelial Cells Moderate /LPF (NONE/OCC) H Urine Amorphous Sediment Moderate /LPF (NONE) H Urine Bacteria Few /HPF (NONE) Urine HCG, Qualitative Negative (NEGATIVE) Urine Opiates Screen Negative (NEGATIVE) Urine Barbiturates Screen Negative (NEGATIVE) Phencyclidine (PCP) Screen Negative (NEGATIVE) Urine Amphetamines Screen Negative (NEGATIVE) Urine Benzodiazepines Screen Negative (NEGATIVE) Urine Cocaine Screen Negative (NEGATIVE) Urine Marijuana (THC) Screen Negative (NEGATIVE) EKG Diagnostic Results Rate: normal Rhythm: NSR ST Segments: no acute changes Rhythm Strip Diag. Results EP Interpretation: yes Rate: 60'S Rhythm: NSR, no PVC's, no ectopy Last Vital Signs Date Time Temp Pulse Resp B/P (MAP) Pulse Ox O2 Delivery O2 Flow Rate FiO2 11/11/17 09:39 100 18 Room Air 11/11/17 09:26 97.9 139/99 98 97.9 Status: improved Disposition: HOME, SELF-CARE Condition: Improved Patient Instructions: Seizure, Adult Taylor Puri DO Nov 11, 2017 09:50
[2017-11-11 10:09] LABS: BASOPHILS % (AUTO) 0.5 % (0.0-2.0); EOSINOPHILS % (AUTO) 0.4 % (0.0-3.0); HEMATOCRIT 43.7 % (37.0-47.0); HEMOGLOBIN 14.3 G/DL (12.0-16.0); LYMPHOCYTES % (AUTO) 27.6 % (20.0-45.0); MEAN CORPUSCULAR VOLUME 86 FL (80-99); MONOCYTES % (AUTO) 5.6 % (1.0-10.0); NEUTROPHILS % (AUTO) 65.9 % (45.0-75.0); PLATELET COUNT 310 K/UL (150-450); WHITE BLOOD COUNT 6.8 K/UL (4.8-10.8)
[2017-11-11 10:28] VITALS: BP 124/78
[2017-11-11 10:45] LABS: ALANINE AMINOTRANSFERASE 33 U/L (12-78); ALBUMIN 3.8 G/DL (3.4-5.0); ALBUMIN/GLOBULIN RATIO 1.1 (1.0-2.7); ALKALINE PHOSPHATASE 102 U/L (46-116); ANION GAP 11 mmol/L (5-15); ASPARTATE AMINO TRANSFERASE 26 U/L (15-37); BILIRUBIN,TOTAL 0.5 MG/DL (0.2-1.0); BLOOD UREA NITROGEN 19 mg/dL (7-18); CARBON DIOXIDE 23 MMOL/L (21-32); CHLORIDE 107 MMOL/L (98-107); CREATINE KINASE 305 U/L (26-308); POTASSIUM 3.5 MMOL/L (3.5-5.1); SODIUM 141 MMOL/L (136-145)
[2017-11-11 10:49] LABS: CALCIUM 8.8 MG/DL (8.5-10.1)
[2017-11-11] MEDS ORDERED: Ammonia Inhalant 0.33mL 1 Amp INH ONE ×2 (11:04→11:05)
[2017-11-11 11:21] VITALS: BP 130/64
[2017-11-11 12:38] LABS: BILIRUBIN, URINE NEGATIVE (NEGATIVE); GLUCOSE, URINE (UA) NEGATIVE (NEGATIVE); KETONES,URINE NEGATIVE (NEGATIVE); LEUKOCYTE ESTERASE ,URINE 1+ (NEGATIVE); NITRITE,URINE NEGATIVE (NEGATIVE); PH,URINE 5 (4.5-8.0); PROTEIN,URINE 1+ (NEGATIVE); UROBILINOGEN,URINE NORMAL MG/DL (0.0-1.0)
[2017-11-11 12:39] LABS: APPEARANCE,URINE SLIGHTLY CLOUDY; COLOR,URINE YELLOW
[2017-11-11 13:40] VITALS: BP 110/68
[2017-11-11 13:47] VITALS: BP 110/68
--- NOTE | 2017-11-13 14:25 | Cardiology Report ---
APPROVED REPORT EKG Measurement Heart [id number] Normal sinus rhythm Normal ECG
== END 2017-11-11 13:54 | disposition home or self-care (01) ==
LOC: EMR 10:05
DX: G40.909 Epilepsy, unspecified, not intractable, without status epilepticus (principal); Z86.73 Personal history of transient ischemic attack (TIA), and cerebral infarction without residual deficits
CPT/HCPCS: 36415; 80053; 80307; 80329; 81003; 81025; 82550; 85025; 93005; 96360; 99284

== ENCOUNTER 2017-12-12 08:33 | Emergency (ER) | payer MEDICAID ==
[~2017-12-12] VITALS: Ht 160 cm; Wt 81.6 kg
[2017-12-12 08:53] VITALS: BP 134/89
--- NOTE | 2017-12-12 09:21 | Emergency Room Report ---
History of Present Illness General Chief Complaint: Back Pain-No Injury Source: Patient Present Illness HPI Patient persist with complaints of left flank pain Started yesterday Feels that the pain has worsened over the past one day Denies any chest pain or shortness of breath Denies any vomiting Denies any dysuria frequency denies any trauma Pain is 7 out of 10 Allergies: Coded Allergies: VALPROIC ACID (Verified Allergy, Severe, Rash, 12/30/16) Dairy (Verified Allergy, Unknown, 12/23/15) LEVETIRACETAM (Verified Allergy, Unknown, 12/28/16) MORPHINE (Verified Allergy, Unknown, Itching, 12/22/15) PHENYTOIN (Verified Allergy, Unknown, 12/28/16) Whole Milk (Verified Allergy, Unknown, 12/23/15) Patient History Past Medical History: see triage record Pertinent Family History: none Last Menstrual Period: hyst Now: No Reviewed Nursing Documentation: PMH: Agreed; PSxH: Agreed Nursing Documentation-PMH Past Medical History: No History, Except For Hx Cardiac Problems: Yes Hx Hypertension: No Hx Pacemaker: No Hx Asthma: No Hx COPD: No Hx Diabetes: No Hx Cancer: Yes - ovarian,TOTAL HYSTERECTOMY IN 2005 Hx Gastrointestinal Problems: No Hx Neurological Problems: Yes Hx Cerebrovascular Accident: Yes Hx Transient Ischemic Attacks: Yes Hx Dementia: No Hx Meningitis: Yes Hx Seizures: Yes Hx Epilepsy: Yes Hx Dizziness: Yes Hx Headaches: Yes Hx Weakness: Yes Review of Systems All Other Systems: negative except mentioned in HPI Physical Exam Vital Signs Date Time Temp Pulse Resp B/P (MAP) Pulse Ox O2 Delivery O2 Flow Rate FiO2 12/12/17 08:43 98.3 89 18 134/89 98 Room Air 98.2 Sp02 EP Interpretation: reviewed, normal General Appearance: well appearing, no apparent distress Head: normocephalic, atraumatic Eyes: bilateral eye PERRL, bilateral eye EOMI ENT: hearing grossly normal, normal pharynx, TMs + canals normal, uvula midline Neck: full range of motion, supple, no meningismus, no bony tend Respiratory: lungs clear, normal breath sounds, no rhonchi, no respiratory distress, no retraction, no accessory muscle use Cardiovascular #1: normal peripheral pulses, regular rate, rhythm, no edema, no gallop, no JVD, no murmur Gastrointestinal: normal bowel sounds, non tender, soft, no mass, no organomegaly, non-distended, no guarding, no hernia, no pulsatile mass, no rebound Genitourinary: no CVA tenderness Musculoskeletal: other - Uncomfortable on palpation of the left flank area, no obvious CVA tenderness no palpable masses, Neurologic: oriented x3, responsive, employment case manager III-XII nml as tested, motor strength/ tone normal, sensory intact Psychiatric: mood/affect normal Skin: normal color, no rash, warm/dry, palpation normal Lymphatic: normal inspection, no adenopathy Medical Decision Making Diagnostic Impression: Primary Impression: Flank pain ER Course Multiple differentials considered including but not limited to muscle skeletal, infectious such as UTI/pyelonephritis, other solid organ internal injury Patient's blood work is normal Urine sample does not show any signs of acute pathology CT imaging was also negative Patient has done somewhat better throughout her stay At this time nonspecific pathology regarding her discomfort otherwise remains hemodynamically stable and with the extensive workup initially is appropriate for close outpatient follow-up Labs Test 12/12/17 08:51 12/12/17 09:45 Urine Color Pale yellow Urine Appearance Clear Urine pH 6.5 (4.5-8.0) Urine Specific [place] 1.015 (1.005-1.035) Urine Protein Negative (NEGATIVE) Urine Glucose (UA) Negative (NEGATIVE) Urine Ketones Negative (NEGATIVE) Urine Blood Negative (NEGATIVE) Urine Nitrite Negative (NEGATIVE) Urine Bilirubin Negative (NEGATIVE) Urine Urobilinogen Normal MG/DL (0.0-1.0) Urine Leukocyte Esterase Negative (NEGATIVE) Urine HCG, Qualitative Negative (NEGATIVE) White Blood Count 4.3 K/UL (4.8-10.8) Red Blood Count 5.14 M/UL (4.20-5.40) Hemoglobin 14.9 G/DL (12.0-16.0) Hematocrit 44.6 % (37.0-47.0) Mean Corpuscular Volume 87 FL (80-99) Mean Corpuscular Hemoglobin 29.0 PG (27.0-31.0) Mean Corpuscular Hemoglobin Concent 33.4 G/DL (32.0-36.0) Red Cell Distribution Width 11.7 % (11.6-14.8) Platelet Count 268 K/UL (150-450) Mean Platelet Volume 6.0 FL (6.5-10.1) Neutrophils (%) (Auto) 62.8 % (45.0-75.0) Lymphocytes (%) (Auto) 30.0 % (20.0-45.0) Monocytes (%) (Auto) 5.2 % (1.0-10.0) Eosinophils (%) (Auto) 1.1 % (0.0-3.0) Basophils (%) (Auto) 0.9 % (0.0-2.0) Sodium Level 138 MMOL/L (136-145) Potassium Level 4.4 MMOL/L (3.5-5.1) Chloride Level 105 MMOL/L (98-107) Carbon Dioxide Level 26 MMOL/L (21-32) Anion Gap 7 mmol/L (5-15) Blood Urea Nitrogen 15 mg/dL (7-18) Creatinine 0.8 MG/DL (0.55-1.30) Estimat Glomerular Filtration Rate > 60 mL/min (>60) Glucose Level 96 MG/DL (74-106) Calcium Level 9.7 MG/DL (8.5-10.1) CT/MRI/US Diagnostic Results CT/MRI/US Diagnostic Results : Impression CT abdomen pelvis: no acute disease Last Vital Signs Date Time Temp Pulse Resp B/P (MAP) Pulse Ox O2 Delivery O2 Flow Rate FiO2 12/12/17 08:53 98.2 71 18 134/89 98 Room Air 98.2 Status: improved Disposition: HOME, SELF-CARE Condition: Improved Scripts Methocarbamol* (ROBAXIN-750*) 750 Mg Tablet 750 MG PO TID, #21 TAB 0 Refills Prov: Edi Willard DO 12/12/17 Referrals: [facility],REFERRING (PCP) Additional Instructions: Patient is provided with the discharge instructions notified to follow up with primary doctor in the next 2-3 days otherwise return to the er with any worsening symptoms. Please note that this report is being documented using [employer] technology. This can lead to erroneous entry secondary to incorrect interpretation by the dictating instrument. Edi Willard DO Dec 12, 2017 09:21
[2017-12-12] MEDS ORDERED: Tylenol #3 tab (300mg/30mg) ORAL ONE (09:30)
[2017-12-12] MEDS ORDERED: Ketorolac 60mg Inj IM ONE (09:30)
[2017-12-12 10:07] LABS: BASOPHILS % (AUTO) 0.9 % (0.0-2.0); EOSINOPHILS % (AUTO) 1.1 % (0.0-3.0); HEMATOCRIT 44.6 % (37.0-47.0); HEMOGLOBIN 14.9 G/DL (12.0-16.0); MEAN CORPUSCULAR VOLUME 87 FL (80-99); MONOCYTES % (AUTO) 5.2 % (1.0-10.0); NEUTROPHILS % (AUTO) 62.8 % (45.0-75.0); PLATELET COUNT 268 K/UL (150-450); RED BLOOD COUNT 5.14 M/UL (4.20-5.40); RED CELL DISTRIBUTION WIDTH 11.7 % (11.6-14.8); WHITE BLOOD COUNT 4.3 K/UL (4.8-10.8)
[2017-12-12 10:10] LABS: BILIRUBIN, URINE NEGATIVE (NEGATIVE); COLOR,URINE PALE YELLOW; GLUCOSE, URINE (UA) NEGATIVE (NEGATIVE); KETONES,URINE NEGATIVE (NEGATIVE); LEUKOCYTE ESTERASE ,URINE NEGATIVE (NEGATIVE); NITRITE,URINE NEGATIVE (NEGATIVE); PH,URINE 6.5 (4.5-8.0); PROTEIN,URINE NEGATIVE (NEGATIVE); UROBILINOGEN,URINE NORMAL MG/DL (0.0-1.0)
[2017-12-12 10:19] LABS: ANION GAP 7 mmol/L (5-15); BLOOD UREA NITROGEN 15 mg/dL (7-18); CALCIUM 9.7 MG/DL (8.5-10.1); CARBON DIOXIDE 26 MMOL/L (21-32); CHLORIDE 105 MMOL/L (98-107); CREATININE 0.8 MG/DL (0.55-1.30); POTASSIUM 4.4 MMOL/L (3.5-5.1); SODIUM 138 MMOL/L (136-145)
[2017-12-12 10:19] LABS: APPEARANCE,URINE CLEAR
[2017-12-12] MEDS ORDERED: ROBAXIN-750750 MG PO (12:30)
[2017-12-12 12:35] VITALS: BP 131/85
[2017-12-12 12:36] VITALS: BP 131/85
--- NOTE | 2017-12-13 10:31 | Diagnostic Imaging Report ---
Indication: Abdominal pain Technique: Spiral acquisitions obtained through the abdomen and pelvis. No oral contrast utilized, per emergency room physician request No IV contrast utilized, per referring physician request.. Multiplanar reconstructions were generated. Total dose length product 876.03 mGycm. CTDIvol(s) 16.82 mGy. Dose reduction achieved using automated exposure control Comparison: 02/13/2011 Findings: The appendix is normal. No evidence of diverticulosis or diverticulitis. No small bowel distention. No free or loculated intraperitoneal gas or fluid. Distal esophagus, stomach, duodenum are unremarkable. Lack of IV contrast limits assessment of the solid organs. The liver, gallbladder, bile ducts, pancreas, spleen, adrenals, kidneys are all unremarkable. No renal or ureteral calculi, hydronephrosis, or hydroureter. No retroperitoneal or mesenteric mass or adenopathy. No pelvic mass or adenopathy. The uterus is not visualized, presumably surgically absent. The included lung bases are clear. The bones demonstrate scattered osteonecrotic foci, mostly unchanged. However, there is a 4 mm focus in the left sacral wing which is not evident previously. Impression: Essentially unremarkable exam. No acute process. Scattered osteosclerotic foci, probably benign bone islands. However, a focus in the left iliac wing is new, significance uncertain Incidental finding of hysterectomy This agrees with the preliminary interpretation provided overnight by [facility] telerad[facility] service. The CT scanner at [facility] is accredited by the [employer] and the scans are performed using protocols designed to limit radiation exposure to as low as reasonably achievable to attain images of sufficient resolution adequate for diagnostic evaluation.
== END 2017-12-12 12:41 | disposition home or self-care (01) ==
LOC: EMR 09:01
DX: R10.9 Unspecified abdominal pain (principal); Z86.73 Personal history of transient ischemic attack (TIA), and cerebral infarction without residual deficits; Z85.43 Personal history of malignant neoplasm of ovary
CPT/HCPCS: 36415; 74176; 80048; 81003; 81025; 85025; 96372; 99284

== ENCOUNTER 2018-02-16 08:27 | Emergency (ER) | payer MEDICAID ==
[~2018-02-16] VITALS: Ht 160 cm; Wt 81.6 kg
[~2018-02-16 08:27] MED LIST changes: +ROBAXIN-750750 MG PO
[2018-02-16] MEDS ORDERED: LAMICTAL100 MG ORAL (08:55)
[2018-02-16 09:07] VITALS: BP 127/76
[2018-02-16 09:08] VITALS: BP 127/76
--- NOTE | 2018-02-16 09:25 | Emergency Room Report ---
History of Present Illness General Chief Complaint: Seizure Source: Patient Present Illness HPI This patient c/o tonic clonic sz today, she hit frontal head. She does not recall and there are no persons with her. 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 Pt. states she has epilepsy with approximately weekly sz but she also apparently does not d/w PMD frequency of sz. She states she takes Lamictal once daily but does not know dose. Prior to today and including today there has been no (significant) head trauma. There has been no travel. Today there is no headache, no neck pain, no fever, no vomiting, she is alert and oriented x3. Allergies: Coded Allergies: VALPROIC ACID (Verified Allergy, Severe, Rash, 12/30/16) Dairy (Verified Allergy, Unknown, 12/23/15) LEVETIRACETAM (Verified Allergy, Unknown, 12/28/16) MORPHINE (Verified Allergy, Unknown, Itching, 12/22/15) PHENYTOIN (Verified Allergy, Unknown, 12/28/16) Whole Milk (Verified Allergy, Unknown, 12/23/15) Nursing Documentation-PMH Past Medical History: No History, Except For Hx Cardiac Problems: Yes Hx Hypertension: No Hx Pacemaker: No Hx Asthma: No Hx COPD: No Hx Diabetes: No Hx Cancer: Yes - ovarian,TOTAL HYSTERECTOMY IN 2005 Hx Gastrointestinal Problems: No Hx Neurological Problems: Yes Hx Cerebrovascular Accident: Yes Hx Transient Ischemic Attacks: Yes Hx Dementia: No Hx Meningitis: Yes Hx Seizures: Yes Hx Epilepsy: Yes Hx Dizziness: Yes Hx Headaches: Yes Hx Weakness: Yes Review of Systems Constitutional: Reports: see HPI Eye: Reports: no symptoms ENT: Reports: no symptoms Respiratory: Reports: no symptoms Cardiovascular: Reports: no symptoms Gastrointestinal: Reports: no symptoms Genitourinary: Reports: no symptoms Musculoskeletal: Reports: no symptoms Skin: Reports: no symptoms Psychiatric: Reports: no symptoms Neurological: Reports: no symptoms Endocrine: Reports: no symptoms Hematologic/Lymphatic: Reports: no symptoms Allergic: Reports: no symptoms All Other Systems: negative except mentioned in HPI Physical Exam Vital Signs Date Time Temp Pulse Resp B/P (MAP) Pulse Ox O2 Delivery O2 Flow Rate FiO2 02/16/18 08:31 98.4 100 18 142/70 93 Room Air Sp02 EP Interpretation: reviewed, normal General Appearance: normal inspection, well appearing, no apparent distress, alert, GCS 15, non-toxic Head: normocephalic, other - there is slight reddened area about a quarter size at frontal mid-hairline Eyes: bilateral eye normal inspection, bilateral eye PERRL, bilateral eye EOMI ENT: normal ENT inspection, hearing grossly normal, normal pharynx, no angioedema, normal voice, moist mucus membranes Neck: normal inspection, full range of motion, supple, no meningismus, no bony tend Respiratory: normal inspection, lungs clear, normal breath sounds, no rhonchi, no respiratory distress, no retraction, no accessory muscle use, no wheezing Cardiovascular #1: normal inspection, regular rate, rhythm, no edema Gastrointestinal: normal inspection, normal bowel sounds, non tender, soft, no mass, non-distended Musculoskeletal: gait/station normal, normal range of motion Neurologic: normal inspection, alert, oriented x3, responsive, motor strength/ tone normal Psychiatric: normal inspection, judgement/insight normal, memory normal Suicide Risk Assessment: Suicidal Ideation: No Had intent to initiate attempt: No Pt's plan for suicide attempt: No Has means to complete attempt: No Skin: normal inspection, normal color, no rash, warm/dry Medical Decision Making Diagnostic Impression: Primary Impression: Epileptic seizure, generalized ER Course pt. did not want to stay for observation or lab draw; will leave ama. she is alert and oriented, not intoxicated, able to make decisions Last Vital Signs Date Time Temp Pulse Resp B/P (MAP) Pulse Ox O2 Delivery O2 Flow Rate FiO2 02/16/18 09:08 98.4 85 18 127/76 96 Room Air Status: unchanged Disposition: HOME, SELF-CARE Condition: Stable Referrals: [facility],REFERRING (PCP) Patient Instructions: Seizure, Adult Omero Redding M.D. Feb 16, 2018 09:25
== END 2018-02-16 09:28 | disposition home or self-care (01) ==
LOC: EMR 08:44
DX: G40.409 Other generalized epilepsy and epileptic syndromes, not intractable, without status epilepticus (principal); Z86.73 Personal history of transient ischemic attack (TIA), and cerebral infarction without residual deficits; Z90.710 Acquired absence of both cervix and uterus; Z86.61 Personal history of infections of the central nervous system
CPT/HCPCS: 99282

== ENCOUNTER 2018-07-10 08:19 | Emergency (ER) | payer MEDICAID ==
[~2018-07-10] VITALS: Ht 160 cm; Wt 81.6 kg
[~2018-07-10 08:19] MED LIST changes: +LAMICTAL100 MG ORAL
[2018-07-10 08:28] VITALS: BP 134/88
--- NOTE | 2018-07-10 08:30 | NUR ---
ED Nurse Note: pt walked in to ED due to sharp cp that radiated to back and left arm since yesterday around 1900. per pt, just watching tv that time. did not take any meds for pain. denies any injury or cough. AAO x4. respirations even and non-labored noted. skin warm to touch. no open wound noted. ambulatory with steady gait. pt pointed epigastric area for origin pain start point. on classroom monitor. ekg done at the bed side.
[2018-07-10] MEDS ORDERED: Aspirin Baby 81mg ONE (08:39)
--- NOTE | 2018-07-10 08:39 | Emergency Room Report ---
History of Present Illness General Chief Complaint: Chest Pain Source: Patient, Medical Record Present Illness HPI Patient is a 43-year-old female presented after increased left-sided chest discomfort. Patient reports having increased chest discomfort radiating to her left arm. This she was described as a chest tightness. 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 Patient had been taking Lamictal for seizures. She denies any recent trauma. She states that she had prior history of borderline diabetes. Pain is been constant and patient reports having prior hysterectomy.She denies any prior history of heart attack or congestive heart failure. Allergies: Coded Allergies: VALPROIC ACID (Verified Allergy, Severe, Rash, 12/30/16) Dairy (Verified Allergy, Unknown, 12/23/15) LEVETIRACETAM (Verified Allergy, Unknown, 12/28/16) MORPHINE (Verified Allergy, Unknown, Itching, 12/22/15) PHENYTOIN (Verified Allergy, Unknown, 12/28/16) Whole Milk (Verified Allergy, Unknown, 12/23/15) Patient History Past Medical History: see triage record Last Menstrual Period: hysterectomy 2011 Reviewed Nursing Documentation: PMH: Agreed; PSxH: Agreed Nursing Documentation-PMH Past Medical History: No History, Except For Hx Cardiac Problems: Yes Hx Hypertension: No Hx Pacemaker: No Hx Asthma: No Hx COPD: No Hx Diabetes: No Hx Cancer: Yes - ovarian,TOTAL HYSTERECTOMY IN 2005 Hx Gastrointestinal Problems: No Hx Neurological Problems: Yes Hx Cerebrovascular Accident: Yes Hx Transient Ischemic Attacks: Yes Hx Dementia: No Hx Meningitis: Yes Hx Seizures: Yes Hx Epilepsy: Yes Hx Dizziness: Yes Hx Headaches: Yes Hx Weakness: Yes Review of Systems All Other Systems: negative except mentioned in HPI Physical Exam Sp02 EP Interpretation: reviewed, normal General Appearance: normal inspection, well appearing, no apparent distress, alert, GCS 15, non-toxic Head: normocephalic, atraumatic ENT: normal ENT inspection, hearing grossly normal, normal voice Neck: normal inspection, full range of motion, supple, no bony tend Respiratory: normal inspection, lungs clear, normal breath sounds, no respiratory distress, no retraction, no wheezing Cardiovascular #1: normal inspection, normal peripheral pulses, regular rate, rhythm, no edema, no murmur Gastrointestinal: normal inspection, normal bowel sounds, non tender, soft, no guarding, no hernia Genitourinary: no CVA tenderness Musculoskeletal: normal inspection, back normal, normal range of motion Neurologic: normal inspection, alert, oriented x3, responsive, block 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 Differential diagnosis included but was not limited to acute coronary syndrome, pulmonary embolism, pneumonia, aortic dissection, shingles, pneumothorax, aortic dissection, esophageal rupture, pericarditis. Because of complexity of patient's case laboratory testing and imaging studies were ordered. EKG interpreted by me showed normal sinus rhythm with a rate of [address] or T wave changes. Patient was given aspirin. She was noted to be normotensive with normal oxygen saturation. Patient report reportedly had prior history of neurocysticercosis and had prior history of panic attacks in the past. Patient was noted to have some atypical movements which may have been but were unlikely to be seizure activity. Patient was noted to have no change in heart rate which continued to be sinus rhythm in the 70s. Patient had no loss of continence and appeared to have continued control of extremities during episode. Shaking movement resolved with repositioning of extremity. Patient does not appear to have any evidence of syncope during this episode. Patient appear to have normal skin color. Heart rate and blood pressure were normal. Patient was advised follow-up with her neurologist as an outpatient. Patient was advised to return if she began having fever worsening pain or other concerns. Labs Test 07/10/18 09:10 07/10/18 10:55 White Blood Count 5.1 K/UL (4.8-10.8) Red Blood Count 4.72 M/UL (4.20-5.40) Hemoglobin 13.8 G/DL (12.0-16.0) Hematocrit 40.9 % (37.0-47.0) Mean Corpuscular Volume 87 FL (80-99) Mean Corpuscular Hemoglobin 29.1 PG (27.0-31.0) Mean Corpuscular Hemoglobin Concent 33.6 G/DL (32.0-36.0) Red Cell Distribution Width 11.9 % (11.6-14.8) Platelet Count 238 K/UL (150-450) Mean Platelet Volume 5.8 FL (6.5-10.1) Neutrophils (%) (Auto) 67.1 % (45.0-75.0) Lymphocytes (%) (Auto) 22.5 % (20.0-45.0) Monocytes (%) (Auto) 6.5 % (1.0-10.0) Eosinophils (%) (Auto) 2.9 % (0.0-3.0) Basophils (%) (Auto) 0.9 % (0.0-2.0) D-Dimer < 0.19 mg/L FEU Sodium Level 141 MMOL/L (136-145) Potassium Level 3.9 MMOL/L (3.5-5.1) Chloride Level 106 MMOL/L (98-107) Carbon Dioxide Level 26 MMOL/L (21-32) Anion Gap 9 mmol/L (5-15) Blood Urea Nitrogen 12 mg/dL (7-18) Creatinine 0.7 MG/DL (0.55-1.30) Estimat Glomerular Filtration Rate > 60 mL/min (>60) Glucose Level 117 MG/DL (74-106) Calcium Level 9.2 MG/DL (8.5-10.1) Total Bilirubin 0.3 MG/DL (0.2-1.0) Aspartate Amino Transf (AST/SGOT) 23 U/L (15-37) Alanine Aminotransferase (ALT/SGPT) 33 U/L (12-78) Alkaline Phosphatase 103 U/L (46-116) Total Creatine Kinase 85 U/L (26-308) Creatine Kinase MB 0.8 NG/ML (0.0-3.6) Creatine Kinase MB Relative Index 0.9 Troponin I 0.003 ng/mL (0.000-0.056) Pro-B-Type Natriuretic Peptide 61 pg/mL (0-125) Total Protein 6.9 G/DL (6.4-8.2) Albumin 3.5 G/DL (3.4-5.0) Globulin 3.4 g/dL Albumin/Globulin Ratio 1.0 (1.0-2.7) Lipase 88 U/L (73-393) Urine Opiates Screen Negative (NEGATIVE) Urine Barbiturates Screen Negative (NEGATIVE) Phencyclidine (PCP) Screen Negative (NEGATIVE) Urine Amphetamines Screen Negative (NEGATIVE) Urine Benzodiazepines Screen Negative (NEGATIVE) Urine Cocaine Screen Negative (NEGATIVE) Urine Marijuana (THC) Screen Negative (NEGATIVE) EKG Diagnostic Results Rate: normal Rhythm: NSR ST Segments: no acute changes Status: improved Disposition: HOME, SELF-CARE Condition: Stable Alfred Randhawa MD Jul 10, 2018 08:39
[2018-07-10] MEDS ORDERED: Aspirin Baby 81mg ORAL ONE (08:45)
--- NOTE | 2018-07-10 08:54 | NUR ---
ED Nurse Note: multiple RNs attempted to started IV access. lab called to draw blood.
--- NOTE | 2018-07-10 08:56 | NUR ---
ED Nurse Note: unable to provide urine sample at this time.
--- NOTE | 2018-07-10 09:07 | NUR ---
ED Nurse Note: lab person at the bed side.
[2018-07-10 09:25] LABS: BASOPHILS % (AUTO) 0.9 % (0.0-2.0); EOSINOPHILS % (AUTO) 2.9 % (0.0-3.0); HEMATOCRIT 40.9 % (37.0-47.0); HEMOGLOBIN 13.8 G/DL (12.0-16.0); LYMPHOCYTES % (AUTO) 22.5 % (20.0-45.0); MEAN CORPUSCULAR VOLUME 87 FL (80-99); MONOCYTES % (AUTO) 6.5 % (1.0-10.0); NEUTROPHILS % (AUTO) 67.1 % (45.0-75.0); PLATELET COUNT 238 K/UL (150-450); RED BLOOD COUNT 4.72 M/UL (4.20-5.40); RED CELL DISTRIBUTION WIDTH 11.9 % (11.6-14.8); WHITE BLOOD COUNT 5.1 K/UL (4.8-10.8)
[2018-07-10 09:37] LABS: ANION GAP 9 mmol/L (5-15); BLOOD UREA NITROGEN 12 mg/dL (7-18); CALCIUM 9.2 MG/DL (8.5-10.1); CARBON DIOXIDE 26 MMOL/L (21-32); CHLORIDE 106 MMOL/L (98-107); CREATININE 0.7 MG/DL (0.55-1.30); POTASSIUM 3.9 MMOL/L (3.5-5.1); SODIUM 141 MMOL/L (136-145)
[2018-07-10 09:52] LABS: ALANINE AMINOTRANSFERASE 33 U/L (12-78); ALBUMIN 3.5 G/DL (3.4-5.0); ALKALINE PHOSPHATASE 103 U/L (46-116); ASPARTATE AMINO TRANSFERASE 23 U/L (15-37); BILIRUBIN,TOTAL 0.3 MG/DL (0.2-1.0); CKMB 0.8 NG/ML (0.0-3.6); CREATINE KINASE 85 U/L (26-308)
[2018-07-10 10:00] VITALS: BP 96/61
--- NOTE | 2018-07-10 10:10 | Diagnostic Imaging Report ---
Indication: Chest pain Technique: One view of the chest Comparison: 04/27/2016 Findings: Lungs and pleural spaces are clear. Heart size is normal. No significant interim change Impression: No acute process
--- NOTE | 2018-07-10 10:26 | NUR ---
ED Nurse Note: pt had seizure activity on the way to restroom. EMT tech assist pt on the floor. pt transferrd to [facility] and contacted to police manager. VSS. ekg done at the bed side. pt still confused. no head trauma. Dr. Randhawa notified. will cont monitor.
[2018-07-10] MEDS ORDERED: Valproate Sodium INJ 500 MG in D5W 55 ML IVPB ONE (10:30)
--- NOTE | 2018-07-10 10:50 | NUR ---
ED Nurse Note: RN notified Dr. Randhawa that pt is allergic to [place]. dc the order.
[2018-07-10 11:00] VITALS: BP 107/56
[2018-07-10] MEDS ORDERED: LORazepam 1mg tab ORAL ONE (11:15)
[2018-07-10 12:00] VITALS: BP 117/65
--- NOTE | 2018-07-10 12:10 | NUR ---
ED Nurse Note: pt lying in bed with eye closed. no facial grimacing or moaning noted. on insurance examining clerk. will wait for the further order.
--- NOTE | 2018-07-10 12:42 | NUR ---
ED Nurse Note: Pt cleared by health care Provider for discharge. DC instructions given and explained to pt, verbalized understanding. All medical deviecs such as ID band removed. Pt is AAO x4, ambulatory and left with all personal belongings. iv site out intactly pt without further seizure activity, pt aware and agrees to fu with pmd. pt states she has ride home. a/ox3 upon dc
[2018-07-10 12:43] VITALS: BP 122/76
--- NOTE | 2018-07-12 07:51 | Cardiology Report ---
APPROVED REPORT EKG Measurement Heart [id number] Normal sinus rhythm Normal ECG
== END 2018-07-10 12:45 | disposition home or self-care (01) ==
LOC: EMR 08:39
DX: R07.89 Other chest pain (principal); G40.909 Epilepsy, unspecified, not intractable, without status epilepticus; Z79.899 Other long term (current) drug therapy; Z86.73 Personal history of transient ischemic attack (TIA), and cerebral infarction without residual deficits; Z90.710 Acquired absence of both cervix and uterus; Z88.8 Allergy status to other drugs, medicaments and biological substances; Z88.5 Allergy status to narcotic agent
CPT/HCPCS: 36415; 71045; 80053; 80307; 82550; 82553; 83690; 83880; 84484; 85025; 85379; 93005; 96365; 99284

== ENCOUNTER 2020-01-14 18:08 | Inpatient (IN) | payer MEDICAID ==
[~2020-01-14] VITALS: Ht 167.6 cm; Wt 90.4 kg
[2020-01-14 18:40] VITALS: BP 148/98
--- NOTE | 2020-01-14 18:40 | NUR ---
ED Nurse Note: Pt brought in by amb for stroke today 0900. Pt unknown how long it was, but passed otu and hit head. No wounds. Pt is a&ox1, name only. Set up on monitor. Pt has been seen by [facility]. Mom is present. Pt is drowsy but awake.
--- NOTE | 2020-01-14 18:51 | Diagnostic Imaging Report ---
EXAM: CT Head Without Intravenous Contrast CLINICAL HISTORY: Seizure. TECHNIQUE: Axial computed tomography images of the head/brain without intravenous contrast. CTDI is 53.4 mGy and DLP is 1018.8 mGy-cm. One or more of the following dose reduction techniques were used: automated exposure control, adjustment of the mA and/or kV according to patient size, use of iterative reconstruction technique. COMPARISON: 12/03/2016. FINDINGS: Brain: 0.5 central coarse calcification high left parietal lobe, most likely a manifestation of previous cysticercosis exposure. No abnormal extra-axial collection. No acute intracranial pathology is detected. No hemorrhage. Midline shift: No midline shift or mass-effect. Ventricles: The ventricular system is unremarkable. Bones/joints: The calvarium is unremarkable. Hyperostosis frontalis. No acute fracture. Soft tissues: Unremarkable. Sinuses: Visualized sinuses are unremarkable. Mastoid air cells: Mastoid air cells are well pneumatized. IMPRESSION: 1. Age-related changes. 2. No acute intracranial pathology. 3. If there is concern for etiology such as early acute lacunar infarcts, magnetic resonance imaging of the brain with diffusion-weighted sequences should be performed.
--- NOTE | 2020-01-14 19:10 | NUR ---
ED Nurse Note: Pt to MRI
--- NOTE | 2020-01-14 19:30 | NUR ---
ED Nurse Note: Pt back from MRI, changed pt and mack Addendum: 01/14/20 at 2120 by KDEARING placed on bedpan, urine sent to lab
[2020-01-14 19:31] LABS: INR 1.1 (0.9-1.1)
--- NOTE | 2020-01-14 19:34 | Emergency Room Report ---
History of Present Illness General Chief Complaint: Stroke Symptoms Source: Patient (Kelle Reilly) Present Illness HPI 44-year-old female with history of seizure and 3 CVA brought in by mom due to a seizure activity that occurred at 9 AM today in the bathroom and according to mom patient fell and hit her head. Patient has been feeling weak and numb on the left side of body ever since. Patient did not want to come to the hospital right away and went to sleep. Patient is unable to squeeze with left hand and m ove left leg. Patient also has slurred speech. Denies any urinary bowel incontinence. Denies . Denies chest pain or shortness of breath. Denies drug use and alcohol intake. Has established neurologist. (Kelle Reilly) Allergies: Coded Allergies: VALPROIC ACID (Verified Allergy, Severe, Rash, 12/30/16) Dairy (Verified Allergy, Unknown, 12/23/15) LEVETIRACETAM (Verified Allergy, Unknown, 12/28/16) MORPHINE (Verified Allergy, Unknown, Itching, 12/22/15) PHENYTOIN (Verified Allergy, Unknown, 12/28/16) Whole Milk (Verified Allergy, Unknown, 12/23/15) COVID-19 Screening Contact w/high risk pt: No Experienced COVID-19 symptoms?: No COVID-19 Testing performed LOOM CONTROL CHAIN BUILDER: No (Kelle Reilly) Patient History Past Medical History: see triage record Past Surgical History: none Last Menstrual Period: n/a Now: No Immunizations: UTD Reviewed Nursing Documentation: PMH: Agreed; PSxH: Agreed (Kelle Reilly) Nursing Documentation-PMH Past Medical History: No History, Except For Hx Cardiac Problems: Yes Hx Hypertension: No Hx Pacemaker: No Hx Asthma: No Hx COPD: No Hx Diabetes: No Hx Cancer: Yes - ovarian,TOTAL HYSTERECTOMY IN 2005 Hx Gastrointestinal Problems: No Hx Neurological Problems: Yes Hx Cerebrovascular Accident: Yes Hx Transient Ischemic Attacks: Yes Hx Dementia: No Hx Meningitis: Yes Hx Seizures: Yes Hx Epilepsy: Yes Hx Dizziness: Yes Hx Headaches: Yes Hx Weakness: Yes (Kelle Reilly) Review of Systems All Other Systems: negative except mentioned in HPI (Kelle Reilly) Physical Exam Vital Signs Date Time Temp Pulse Resp B/P (MAP) Pulse Ox O2 Delivery O2 Flow Rate FiO2 01/14/20 18:25 98.1 93 24 151/129 (136) 99 Room Air Sp02 EP Interpretation: reviewed, normal General Appearance: alert, non-toxic, moderate distress Head: normocephalic, atraumatic Eyes: bilateral eye normal inspection, bilateral eye PERRL ENT: normal pharynx Neck: full range of motion, supple Respiratory: lungs clear, normal breath sounds, no rhonchi Cardiovascular #1: regular rate, rhythm, no edema Cardiovascular #2: 2+ dorsalis pedis (R), 2+ dorsalis pedis (L) Gastrointestinal: soft Rectal: deferred Genitourinary: no CVA tenderness Musculoskeletal: back normal, no calf tenderness Neurologic: alert, oriented, facial droop - Left-sided, motor weakness - Left- sided body, responsive, abnormal gait, other - Slurred speech Psychiatric: judgement/insight normal, mood/affect normal Skin: no rash Lymphatic: no adenopathy (Kelle Reilly) Medical Decision Making PA Attestation Diagnosis and treatment plans were reviewed and discussed with my supervising physician Dr. Murphy (Kelle Reilly) Diagnostic Impression: Primary Impression: Seizure disorder ER Course 44-year-old female with history of seizure and 3 CVA brought in by mom due to a seizure activity that occurred at 9 AM today in the bathroom and according to mom patient fell and hit her head. Patient has been feeling weak and numb on the left side of body ever since. Patient did not want to come to the hospital right away and went to sleep. Patient is unable to squeeze with left hand and move left leg. Patient also has slurred speech. Denies any urinary bowel incontinence. Denies . Denies chest pain or shortness of breath. Denies drug use and alcohol intake. Has established neurologist. Ddx considered but are not limited to: CVA, TIA, pulmonary embolism leading to stroke,sz Vital signs: are WNL, pt. is afebrile H&PE are most consistent with: ORDERS: Head CT no contrast, MRI brain, CBC, CMP, UA, tox screen, urine test, troponin, EKG, chest x-ray ER intervention: Aspirin I signed out the patient to Dr. Murphy at 8:30PM I presented the patient to my supervising physician and prepare for admission and possible transfer of the patient (Kelle Reilly) ER Course 44-year-old female presents with left-sided weakness, patient with history of CVA with left-sided weakness, patient had a seizure this a.m., patient may have a recrudescence of her old stroke Patient will be admitted for observation MRI is negative Patient admitted to Dr. 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 No abnormal extra-axial collection. No acute intracranial pathology is detected. No hemorrhage. Midline shift: No midline shift or mass-effect. Ventricles: The ventricular system is unremarkable. Bones/joints: The calvarium is unremarkable. Hyperostosis frontalis. No acute fracture. Soft tissues: Unremarkable. Sinuses: Visualized sinuses are unremarkable. Mastoid air cells: Mastoid air cells are well pneumatized. IMPRESSION: 1. Age-related changes. 2. No acute intracranial pathology. 3. If there is concern for etiology such as early acute lacunar infarcts, magnetic resonance imaging of the brain with diffusion-weighted sequences should be performed. CT/MRI/US Diagnostic Results #2: Imaging Test Ordered: MRI brain no contrast (Kelle Reilly) CT/MRI/US Diagnostic Results : Impression Final Report EXAM: MR Head Without Intravenous Contrast CLINICAL HISTORY: CVA TECHNIQUE: Magnetic resonance images of the head/brain without intravenous contrast in multiple planes. COMPARISON: Head CT 01/14/2020, brain MRI 01/03/2017 FINDINGS: Brain: Stable mild increased T2 signal in the periventricular and supraventricular cerebral white matter. No hemorrhage. No acute infarct. Ventricles: Unremarkable. No ventriculomegaly. Bones/joints: Unremarkable. Sinuses: Unremarkable as visualized. No acute sinusitis. Mastoid air cells: Unremarkable as visualized. No mastoid effusion. Orbits: Unremarkable as visualized. IMPRESSION: 1. No acute infarction. 2. Stable mild chronic increased T2 signal in the white matter. Differential includes chronic small vessel ischemic disease, sequela of infection, inflammation, demyelination, or migraines. Radiologist: Bharat Fraser MD Electronically Signed: 01/14/20 20:50 Study ready at 19:57 and initial results transmitted at 20:50 (Deshawn Murphy MD) Last Vital Signs Date Time Temp Pulse Resp B/P (MAP) Pulse Ox O2 Delivery O2 Flow Rate FiO2 01/14/20 18:40 98.1 85 21 148/98 98 Room Air (Kelle Reilly) Disposition: ADMITTED INPATIENT Condition: Stable Kelle Reilly Jan 14, 2020 19:34 Deshawn Murphy MD Jan 14, 2020 21:56
[2020-01-14 19:37] LABS: BASOPHILS % (AUTO) 0.9 % (0.0-2.0); EOSINOPHILS % (AUTO) 2.6 % (0.0-3.0); HEMATOCRIT 43.1 % (37.0-47.0); HEMOGLOBIN 14.3 G/DL (12.0-16.0); LYMPHOCYTES % (AUTO) 25.6 % (20.0-45.0); MEAN CORPUSCULAR VOLUME 91 FL (80-99); MONOCYTES % (AUTO) 6.3 % (1.0-10.0); NEUTROPHILS % (AUTO) 64.6 % (45.0-75.0); PLATELET COUNT 284 K/UL (150-450); RED BLOOD COUNT 4.71 M/UL (4.20-5.40); WHITE BLOOD COUNT 7.1 K/UL (4.8-10.8)
[2020-01-14] MEDS ORDERED: Metoclopramide 10mg/2ml Inj IVP ONE (20:00)
[2020-01-14 20:03] LABS: ALANINE AMINOTRANSFERASE 51 U/L (12-78); ALBUMIN 3.6 G/DL (3.4-5.0); ALKALINE PHOSPHATASE 123 U/L (46-116); ASPARTATE AMINO TRANSFERASE 37 U/L (15-37); BILIRUBIN,TOTAL 0.2 MG/DL (0.2-1.0); BLOOD UREA NITROGEN 17 mg/dL (7-18); CALCIUM 8.6 MG/DL (8.5-10.1); CARBON DIOXIDE 20 MMOL/L (21-32); CREATINE KINASE 103 U/L (26-308); CREATININE 1.1 MG/DL (0.55-1.30)
[2020-01-14 20:19] LABS: CHLORIDE 108 MMOL/L (98-107); POTASSIUM 3.5 MMOL/L (3.5-5.1); SODIUM 141 MMOL/L (136-145)
--- NOTE | 2020-01-14 20:51 | Diagnostic Imaging Report ---
EXAM: MR Head Without Intravenous Contrast CLINICAL HISTORY: CVA TECHNIQUE: Magnetic resonance images of the head/brain without intravenous contrast in multiple planes. COMPARISON: Head CT 01/14/2020, brain MRI 01/03/2017 FINDINGS: Brain: Stable mild increased T2 signal in the periventricular and supraventricular cerebral white matter. No hemorrhage. No acute infarct. Ventricles: Unremarkable. No ventriculomegaly. Bones/joints: Unremarkable. Sinuses: Unremarkable as visualized. No acute sinusitis. Mastoid air cells: Unremarkable as visualized. No mastoid effusion. Orbits: Unremarkable as visualized. IMPRESSION: 1. No acute infarction. 2. Stable mild chronic increased T2 signal in the white matter. Differential includes chronic small vessel ischemic disease, sequela of infection, inflammation, demyelination, or migraines.
[2020-01-14 20:57] LABS: COLOR,URINE PALE YELLOW
[2020-01-14 20:58] LABS: APPEARANCE,URINE SLIGHTLY CLOUDY; BILIRUBIN, URINE NEGATIVE (NEGATIVE); GLUCOSE, URINE (UA) NEGATIVE (NEGATIVE); KETONES,URINE NEGATIVE (NEGATIVE); LEUKOCYTE ESTERASE ,URINE 2+ (NEGATIVE); NITRITE,URINE NEGATIVE (NEGATIVE); PH,URINE 6 (4.5-8.0); PROTEIN,URINE NEGATIVE (NEGATIVE); UROBILINOGEN,URINE NORMAL MG/DL (0.0-1.0)
[2020-01-14 21:00] VITALS: BP 137/90
[2020-01-14] MEDS ORDERED: Ketorolac 30mg Inj IV ONE (21:00)
--- NOTE | 2020-01-14 21:30 | NUR ---
ED Nurse Note: Pt c/o of 10/18 headache unrelieved by previous rx, ERMD notified, awaiting order.
[2020-01-14] MEDS ORDERED: Morphine Sulfate 2mg/ml Inj(IV/IM USE ONLY) IVP ONE (22:15)
--- NOTE | 2020-01-14 22:45 | NUR ---
TRANSFER TO FLOOR: Patient transferred to as ordered, per DR Smith. Report given to ANA Cota. Belongings and medications given to . Family and or S/O informed of transfer.
[2020-01-14] MEDS ORDERED: LAMICTAL200 MG ORAL (23:24)
[2020-01-14] MEDS ORDERED: TRAZODONE HCL100 MG ORAL (23:24)
[2020-01-14] MEDS ORDERED: LEXAPRO20 MG ORAL (23:24)
[2020-01-14] MEDS ORDERED: OLANZAPINE5 MG ORAL (23:24)
[2020-01-14] MEDS ORDERED: TROKENDI XR100 MG PO (23:24)
[2020-01-14] MEDS ORDERED: CLONAZEPAM1 MG PO (23:24)
[2020-01-15] VITALS: BP 135/83
--- NOTE | 2020-01-15 00:10 | NUR ---
NURSE NOTES: Received patient. Patient is awake, alert and oriented x 4. Bed in low and locked position. Provided safe environment. Kept clean and comfortable. Skin is warm and dry to touch. Abdomen is soft and non distended. Iv site noted. All belongings at bedside, signed, phone noted. Patient has left sided weakness. Left arm and left lower leg unable to move and also unable to feel . Pinched and scratched, unable to feel. Oriented patient to the room and reporting. cAll light is at bedside. Will continue plan of care. Will call primary MD for admission orders.
[2020-01-15] MEDS: TraZODone 100mg tab ORAL SCH ×5 (00:41→20:59)
--- NOTE | 2020-01-15 01:00 | NUR ---
NURSE NOTES: Received orders from Primary MD, CBC CMP, continue home meds and diet. MD will check patient in the morning. Charge nurse made aware.
[2020-01-15 04:00] VITALS: BP_SYST 117; BP_SYST 94; BP_DIAS 54; BP_DIAS 55
--- NOTE | 2020-01-15 07:06 | NUR ---
NURSE HAND-OFF: Important Events on Shift : NEW aDMIT Patient Status: Left side weakness Diet: Regular Pending Orders: Pending Results/Labs: Pending MD notification: Latest Vital Signs: Temperature 97.7 , Pulse 58 , B/P 94 /54 , Respiratory Rate 18 , O2 SAT 96 , Room Air, O2 Flow Rate . Vital Sign Comment: WNL Latest Peña Fall Score: 80 Fall Risk: High Risk Safety Measures: Call light Within Reach, Bed Alarm Zone 1, Side Rails Side Rails x2, Bed position Low and Locked. Fall Precautions: Report given to Jero Chanel.
--- NOTE | 2020-01-15 07:31 | NUR ---
NURSE NOTES: Patient alert x4; on room air, no sing of distress and shortness of breath; no sing of chest pain; side rails up x2 and padded for seizure percussion, breaks engaged, bed at lowest position, bed alarm on; per report patient doesn't feel her left side of her extremities; IV Lest-Wrist flushes well; call light within reach; will keep monitoring.
--- NOTE | 2020-01-15 07:41 | NUR ---
CASE MANAGEMENT:INITIAL REVIEW 44 YR OLD FEMALE FROM HOME CC;STROKE SYMPTOMS SI;WEAKNESS. LEFT SIDED WEAKNESS. SEIZURE DISORDER. 98.1 93 24 151/129 98% ON RA CL 108 CO2 20 BG 113 ALP 123 PT 12.4 UA+ LEUKOCYTE ESTERASE URINE TOX ~ NEGATIVE COVID RAPID - NEGATIVE ADMITTED TO MED SURG MED SURG STATUS DCP;FROM HOME Addendum: 01/15/20 at 0746 by TIM REED LVN LVN SI;BRAIN MRI - 1. No acute infarction. 2. Stable mild chronic increased T2 signal in the white matter. Differential includes chronic small vessel ischemic disease, sequela of infection, inflammation, demyelination, or migraines. Addendum: 01/15/20 at 0752 by TIM REED LVN LVN IS;ASA PO ONCE TYLENOL PO TORADOL IV MORPHINE IV
[2020-01-15 08:00] VITALS: BP 152/117
--- NOTE | 2020-01-15 08:08 | NUR ---
NURSE NOTES: Patient had a seizure that lasted approximately 20 seconds. Patient is alert and oriented to name only but able to verbalize and understood she had a seizure. Contact MD Smith and left message for MD for PRN ativan or other orders. Awaiting call back.
[2020-01-15] MEDS: LORazepam Inj 2mg/ml 1ml IV PRN ×2 (08:59→16:45)
--- NOTE | 2020-01-15 10:02 | History and Physical ---
History of Present Illness General Date patient seen: Jan 15, 2020 Time patient seen: 09:00 Reason for Hospitalization: Stroke Symptoms Present Illness HPI 44 years old hf d/o rec seizure r/o cva hx cystecercosis pt had one episode of seizure on the floor Allergies: Coded Allergies: VALPROIC ACID (Verified Allergy, Severe, Rash, 12/30/16) Dairy (Verified Allergy, Unknown, 12/23/15) LEVETIRACETAM (Verified Allergy, Unknown, 12/28/16) PHENYTOIN (Verified Allergy, Unknown, 12/28/16) Whole Milk (Verified Allergy, Unknown, 12/23/15) COVID-19 Screening Contact w/high risk pt: No Experienced COVID-19 symptoms?: No Medication History Scheduled Clonazepam (Clonazepam), 1 MG PO BEDTIME, (Reported) Clonazepam* (Klonopin*), 1 MG PO BID, (Reported) Ibuprofen (Advil), 100 MG ORAL Q6H, (Reported) Lamotrigine (Lamictal), 20 MG ORAL BID, (Reported) Lamotrigine* (Lamictal*), Unknown Dose ORAL DAILY, (Reported) Olanzapine (Olanzapine), 5 MG ORAL BEDTIME, (Reported) Topiramate (Trokendi Xr), 100 MG PO BEDTIME, (Reported) Trazodone Hcl* (Desyrel*), 100 MG ORAL FOUR TIMES A DAY, (Reported) Scheduled PRN Escitalopram Oxalate* (Lexapro*), 20 MG ORAL BID PRN for For Anxiety, (Reported) Ibuprofen (Motrin), 600 MG ORAL Q8H PRN for For Pain Discontinued Medications Aspirin* (Aspir 81*), 81 MG ORAL DAILY, (Reported) Discontinued Reason: Pt stopped taking med Gabapentin* (Gabapentin*), 600 MG ORAL THREE TIMES A DAY Discontinued Reason: Pt stopped taking med Hydrocodone Bit/Acetaminophen 5-325* ([place] 5-325*), 1 TAB ORAL Q6H PRN for For Pain Discontinued Reason: Pt stopped taking med Hydrocodone Bit/Acetaminophen 5-325* ([place] 5-325*), 1 TAB ORAL Q6H PRN for For Pain Discontinued Reason: Pt stopped taking med Methocarbamol* (Robaxin-750*), 750 MG PO TID Discontinued Reason: Pt stopped taking med Quetiapine Fumarate (Seroquel), 12.5 MG ORAL TWICE A DAY, (Reported) Discontinued Reason: Pt stopped taking med Patient History Healthcare decision maker Resuscitation status Advanced Directive on File Review of Systems Eye: Reports: no symptoms Respiratory: Reports: no symptoms Cardiovascular: Reports: no symptoms Gastrointestinal: Reports: no symptoms Genitourinary: Reports: no symptoms Skin: Reports: no symptoms Psychiatric: Reports: no symptoms Neurological: Reports: see HPI Hematologic/Lymphatic: Reports: no symptoms Physical Exam General Appearance: alert oriented x3 Lines, tubes and drains: peripheral HEENT: atraumatic Neck: supple Respiratory/Chest: lungs clear Cardiovascular/Chest: regular rhythm Abdomen: non tender, soft Extremities: non-tender Skin Exam: warm/dry Neurologic: signing agent II-XII grossly normal, oriented x 3 Musculoskeletal: normal muscle bulk Last 24 Hour Vital Signs Date Time Temp Pulse Resp B/P (MAP) Pulse Ox O2 Delivery O2 Flow Rate FiO2 01/15/20 09:29 98 18 152/117 98 01/15/20 08:59 98 18 152/117 98 01/15/20 08:00 97.5 98 18 152/117 (129) 98 01/15/20 04:00 97.7 58 18 94/54 (67) 96 01/15/20 00:00 98.3 62 20 135/83 (100) 97 01/14/20 23:53 Room Air 01/14/20 22:51 98.1 01/14/20 22:45 98.1 82 20 137/90 100 Room Air 01/14/20 21:32 98.1 01/14/20 21:00 98.0 82 20 137/90 100 Room Air 01/14/20 18:40 98.1 85 21 148/98 98 Room Air 01/14/20 18:25 98.1 93 24 151/129 (136) 99 Room Air Intake and Output 01/14/20 01/15/20 19:00 07:00 Intake Total 0 ml Balance 0 ml Intake Oral 0 ml # Voids 1 Laboratory Tests Test 01/14/20 19:01 01/14/20 20:45 White Blood Count 7.1 K/UL (4.8-10.8) Red Blood Count 4.71 M/UL (4.20-5.40) Hemoglobin 14.3 G/DL (12.0-16.0) Hematocrit 43.1 % (37.0-47.0) Mean Corpuscular Volume 91 FL (80-99) Mean Corpuscular Hemoglobin 30.4 PG (27.0-31.0) Mean Corpuscular Hemoglobin Concent 33.2 G/DL (32.0-36.0) Red Cell Distribution Width 13.0 % (11.6-14.8) Platelet Count 284 K/UL (150-450) Mean Platelet Volume 5.9 FL (6.5-10.1) L Neutrophils (%) (Auto) 64.6 % (45.0-75.0) Lymphocytes (%) (Auto) 25.6 % (20.0-45.0) Monocytes (%) (Auto) 6.3 % (1.0-10.0) Eosinophils (%) (Auto) 2.6 % (0.0-3.0) Basophils (%) (Auto) 0.9 % (0.0-2.0) Prothrombin Time 12.4 SEC (9.30-11.50) H Prothromb Time International Ratio 1.1 (0.9-1.1) Activated Partial Thromboplast Time 28 SEC (23-33) Sodium Level 141 MMOL/L (136-145) Potassium Level 3.5 MMOL/L (3.5-5.1) Chloride Level 108 MMOL/L (98-107) H Carbon Dioxide Level 20 MMOL/L (21-32) L Blood Urea Nitrogen 17 mg/dL (7-18) Creatinine 1.1 MG/DL (0.55-1.30) Estimat Glomerular Filtration Rate 53.9 mL/min (>60) Glucose Level 113 MG/DL (74-106) H Calcium Level 8.6 MG/DL (8.5-10.1) Total Bilirubin 0.2 MG/DL (0.2-1.0) Aspartate Amino Transf (AST/SGOT) 37 U/L (15-37) Alanine Aminotransferase (ALT/SGPT) 51 U/L (12-78) Alkaline Phosphatase 123 U/L (46-116) H Total Creatine Kinase 103 U/L (26-308) Troponin I 0.000 ng/mL (0.000-0.056) Total Protein 7.3 G/DL (6.4-8.2) Albumin 3.6 G/DL (3.4-5.0) Globulin 3.7 g/dL Albumin/Globulin Ratio 1.0 (1.0-2.7) Serum Alcohol < 3 mg/dL Urine Color Pale yellow Urine Appearance Slightly cloudy Urine pH 6 (4.5-8.0) Urine Specific [place] 1.020 (1.005-1.035) Urine Protein Negative (NEGATIVE) Urine Glucose (UA) Negative (NEGATIVE) Urine Ketones Negative (NEGATIVE) Urine Blood Negative (NEGATIVE) Urine Nitrite Negative (NEGATIVE) Urine Bilirubin Negative (NEGATIVE) Urine Urobilinogen Normal MG/DL (0.0-1.0) Urine Leukocyte Esterase 2+ (NEGATIVE) H Urine RBC 0-2 /HPF (0 - 2) Urine WBC 2-4 /HPF (0 - 2) Urine Squamous Epithelial Cells Few /LPF (NONE/OCC) Urine Bacteria Few /HPF (NONE) Urine HCG, Qualitative Negative (NEGATIVE) Urine Opiates Screen Negative (NEGATIVE) Urine Barbiturates Screen Negative (NEGATIVE) Phencyclidine (PCP) Screen Negative (NEGATIVE) Urine Amphetamines Screen Negative (NEGATIVE) Urine Benzodiazepines Screen Negative (NEGATIVE) Urine Cocaine Screen Negative (NEGATIVE) Urine Marijuana (THC) Screen Negative (NEGATIVE) Microbiology Date/Time Source Procedure Growth Status 01/14/20 21:00 Nasopharynx SARS-CoV-2 RdRp Gene Assay - Final Complete Height (Feet): 5 Height (Inches): 6.00 Weight (Pounds): 199 Medications Current Medications Medications (Trade) Dose Ordered Sig/Lilibeth Route PRN Reason Start Time Stop Time Status Last Admin Dose Admin Clonazepam (KlonoPIN) 1 mg BEDTIME ORAL 01/15/20 21:00 01/22/20 20:59 Escitalopram Oxalate (Lexapro) 20 mg Q12HR ORAL 01/15/20 00:15 02/14/20 00:14 01/15/20 09:34 Ibuprofen (Motrin) 600 mg Q8H PRN ORAL For Pain 01/14/20 23:45 02/13/20 23:44 01/15/20 06:17 Lamotrigine (LaMICtal) 25 mg Q12HR ORAL 01/15/20 00:15 02/14/20 00:14 01/15/20 09:34 Levetiracetam (Keppra) 1,000 mg Q12HR ORAL 01/15/20 09:00 02/14/20 08:59 UNV Lorazepam (Ativan 2mg/ml 1ml) 2 mg Q6H PRN IV For Seizures 01/15/20 08:15 01/22/20 08:14 01/15/20 08:59 Non-Formulary Medication (Non-Formulary Med) 1 ea BEDTIME ORAL 01/15/20 21:00 02/14/20 20:59 UNV Olanzapine (ZyPREXA) 5 mg BEDTIME ORAL 01/15/20 21:00 02/29/20 20:59 Trazodone HCl (Desyrel) 100 mg FOUR TIMES A DAY ORAL 01/14/20 23:45 02/13/20 23:44 01/15/20 09:34 Assessment/Plan Diagnosis [place] I: 1 rec seizure 2 hx cystercosis 3 over wt ativan prn neuro consult Jose Smith MD Jan 15, 2020 10:02
[2020-01-15 10:47] LABS: BASOPHILS % (AUTO) 1.1 % (0.0-2.0); EOSINOPHILS % (AUTO) 3.6 % (0.0-3.0); HEMATOCRIT 42.1 % (37.0-47.0); HEMOGLOBIN 14.4 G/DL (12.0-16.0); LYMPHOCYTES % (AUTO) 27.8 % (20.0-45.0); MEAN CORPUSCULAR VOLUME 87 FL (80-99); NEUTROPHILS % (AUTO) 63.5 % (45.0-75.0); PLATELET COUNT 274 K/UL (150-450); RED BLOOD COUNT 4.82 M/UL (4.20-5.40); RED CELL DISTRIBUTION WIDTH 12.7 % (11.6-14.8); WHITE BLOOD COUNT 4.7 K/UL (4.8-10.8)
[2020-01-15 11:00] LABS: ALBUMIN 3.3 G/DL (3.4-5.0); BILIRUBIN,TOTAL 0.3 MG/DL (0.2-1.0); CALCIUM 8.2 MG/DL (8.5-10.1); CREATININE 1.1 MG/DL (0.55-1.30); POTASSIUM 3.8 MMOL/L (3.5-5.1)
[2020-01-15 12:00] VITALS: BP 126/70
--- NOTE | 2020-01-15 12:24 | NUR ---
NURSE NOTES: I communicated MD Smith regarding the Neuro consult MD morillo put on the case for this patient; waiting for order.
--- NOTE | 2020-01-15 12:25 | NUR ---
NURSE NOTES: Patient is allergic to Keppra, Dilantin and Depakot; Md Smith is aware; patient doesn't have seizure medication on board; the pharmacy suggested since our pharmacy doesn't carry the Trokendi, seizure medication, which patient is on at home; patient stated that "there is no family to bring this medication to hospital". Pharmacy suggested that MD Smith to order the medication which patient is on at home, Trokendi, at the pharmacy across the Street; however no order receive from MD Smith.
--- NOTE | 2020-01-15 15:52 | Diagnostic Imaging Report ---
Indication: Chest pain Technique: One view of the chest Comparison: none Findings: The heart is mildly enlarged. Lungs and pleural spaces are clear. No significant interim change Impression: Mild cardiomegaly. No acute process
[2020-01-15 16:00] VITALS: BP 123/86
--- NOTE | 2020-01-15 16:48 | NUR ---
NURSE NOTES: Patient had another episode of seizure which lasted 43 second; MD Smith and MD Mendez notified;
--- NOTE | 2020-01-15 16:59 | Cardiology Report ---
APPROVED REPORT EKG Measurement Heart [id number] <Conclusion> Normal sinus rhythm Rightward axis Borderline ECG
--- NOTE | 2020-01-15 18:33 | NUR ---
NURSE NOTES: Patient said, she feels like constipated and asking something to help her with bowel movement; I communicated this matter to MD Smith; waiting for the order;
--- NOTE | 2020-01-15 19:05 | NUR ---
NURSE NOTES: Received report from ANA Earl. Pt. is in bed, sitted upright, awake, alert and oriented. No sob noted. Denies any pain at this time.With bed in it's lowest position, with alarm on and locked. Will continue with plan of care.
--- NOTE | 2020-01-15 19:21 | NUR ---
HAND-OFF: Report given to ANA Burnham. Endorsed to the incoming nurse that patient is risk for seizure and aspiration; no seizure at this time. plan of care endorsed to the incoming nurse.
[2020-01-15] MEDS ORDERED: Milk of Magnesia 30ml Ud ORAL PRN (19:30)
[2020-01-15 20:00] VITALS: BP 150/91
[2020-01-15] MEDS ORDERED: OLANZapine 2.5mg tab ORAL SCH (21:00)
--- NOTE | 2020-01-15 23:29 | Psych Consult Progress Note ---
Psychiatry Progress Note Psychiatry Progress Note Medications Current Medications Medications (Trade) Dose Ordered Sig/Lilibeth Route PRN Reason Start Time Stop Time Status Last Admin Dose Admin Clonazepam (KlonoPIN) 1 mg BEDTIME ORAL 01/15/20 21:00 01/22/20 20:59 01/15/20 20:52 Escitalopram Oxalate (Lexapro) 20 mg Q12HR ORAL 01/15/20 00:15 02/14/20 00:14 01/15/20 20:53 Ibuprofen (Motrin) 600 mg Q8H PRN ORAL For Pain 01/14/20 23:45 02/13/20 23:44 01/15/20 20:53 Lorazepam (Ativan 2mg/ml 1ml) 2 mg Q6H PRN IV For Seizures 01/15/20 08:15 01/22/20 08:14 01/15/20 16:45 Magnesium Hydroxide (Mom) 30 ml BIDPRN PRN ORAL Constipation 01/15/20 19:30 02/14/20 19:29 Olanzapine (ZyPREXA) 5 mg BEDTIME ORAL 01/15/20 21:00 02/29/20 20:59 01/15/20 20:53 Trazodone HCl (Desyrel) 100 mg FOUR TIMES A DAY ORAL 01/14/20 23:45 02/13/20 23:44 01/15/20 20:59 Neurological/Psychiatric: Reports: anxiety, depressed, emotional problems Allergies: Coded Allergies: VALPROIC ACID (Verified Allergy, Severe, Rash, 12/30/16) Dairy (Verified Allergy, Unknown, 12/23/15) LEVETIRACETAM (Verified Allergy, Unknown, 12/28/16) PHENYTOIN (Verified Allergy, Unknown, 12/28/16) Whole Milk (Verified Allergy, Unknown, 12/23/15) Objective Data Height (Feet): 5 Height (Inches): 6.00 Weight (Pounds): 199 General Appearance: WD/WN, no apparent distress, alert, alert oriented x3 Additional Comments: awake, oriented to self, place, situation. Mood is irritable and anxious. Affect is blunted, congruent with mood. Thought process is concrete. Thought content, there is no suicidal or homicidal ideation. Cognition is impaired. Insight and judgment impaired. ASSESSMENT: [place] I Anxiety disorder. Panic disorder. [place] II Deferred. [place] III Seizure. [place] IV Low [place] V 20 PLAN: 1. We will continue the Zyprexa. 2. Decrease the Lexapro to 20 mg in the morning. 3. Provide the patient with reality orientation. Dahlia Stack MD Jan 15, 2020 23:29
[2020-01-16] VITALS: BP 110/92
[2020-01-16 04:00] VITALS: BP 112/71
--- NOTE | 2020-01-16 06:35 | NUR ---
All meds given via GT, patent and intact when checked. On Jevity 1.2 @ 50 cc, gradually increased to 600 Addendum: 01/16/20 at 0637 by Kinza Burnham RN wrong entry.
--- NOTE | 2020-01-16 06:58 | NUR ---
NURSE NOTES: Pt. was able to sleep in long intervals and with no seizure noted and as verbalized by pt. Sat down in front of pt.'s room at all times for close monitoring. All due meds given. Vitals signs within stable. Turned and repositioned for comfort and circulation. Able to void freely with assistance. Kept clean and dry at all times. Will continue with plan of care.
--- NOTE | 2020-01-16 07:15 | Consultation ---
DATE OF CONSULTATION: 01/15/2020 NEUROLOGIC CONSULTATION CONSULTING PHYSICIAN: Troy Mendez MD HISTORY OF PRESENT ILLNESS: This is one of several admissions through the emergency room visits for this 44-year-old left-handed woman. She was admitted for 2 seizures, one this morning lasting 30 seconds and one later on today lasting about 45 seconds. Patient was alleged to have meningitis at the age of 5 years and was hospitalized. 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 Over time, she developed panic attacks as well. She has had seizures since around the age of 21, two a day lasting seconds to minutes daily. 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 Patient's seizures generally start with a panic attack. She screams for help and has chest discomfort. The patient saw Dr. Jeremy Gallegos, a neurologist, on 12/22/2015. At that time, she had a CT scan of the brain, which was negative. The patient had an MRI scan of the brain, which was normal. He notes that the patient had been on several medications including Depakote, Dilantin, Tegretol, and Keppra, which she is allegedly allergic to. She had been taking Klonopin 2015. The patient also has daily headaches and saw Dr. Sarita Bang and treated with Botox injections for headaches. The patient has visual loss of the left eye, which is allegedly related to cysticercosis. She denies any head trauma. She allegedly had a stroke in 2017 and was hospitalized at [facility] for 1 to 2 days. The patient also notices problems with smell before seizures. Her memory is poor. She has had depression and anxiety and sees Dr. Sheppard and is on Lexapro and olanzapine and trazodone. Caffeine apparently causes seizures. The patient was hospitalized at [facility] for seizures last year. It sounds like she may have been on telemetry. Currently she is on Lamictal in the nighttime. She is on clonazepam 1 mg tablet twice a day. The patient was admitted to this hospital. Her hemoglobin and white count were normal. Platelet count was normal. She is SARS negative. Urine toxicology screen is negative on 01/14/2020. Chemistries reveal a slightly low GFR, slightly elevated blood sugars, low albumin of 3.3 on 01/15/2020, which was normal on admission. The carbon dioxide was low. BUN was 17. Calcium today was 8.2. No magnesium was noted. Troponins were negative. The patient underwent a head CT scan of the brain and MRI scan on 01/14/2020. The MRI revealed no acute infarction. Stable mild chronic increased T2 signal in the white matter suggestive of chronic small vessel ischemic disease, sequelae of infection, inflammation, demyelination . cysticercosis cysts were noted. CT was pretty much negative. Chest x-ray today revealed mild cardiomegaly. The patient had an electrocardiogram yesterday, which was borderline EKG with a rightward axis. There is no family history of seizures. She does not drink, smoke, or take illegal drugs. There is no history of head injury. There is no family history of neurologic disease. PAST MEDICAL HISTORY/PAST MEDICAL ILLNESSES: 1. Obesity. 2. Alleged history of cysticercosis, although cysticercosis appeared to be negative. 3. Ovarian cancer with total hysterectomy at age of 26 years. ALLERGIES: She is allergic to Keppra and other anticonvulsants. PAST SURGICAL HISTORY: She had ovarian cancer. She had a total hysterectomy at age 26. FAMILY HISTORY: Her father of esophageal cancer. Mother is in good health. Siblings in good health. REVIEW OF SYSTEMS: Noncontributory. PHYSICAL EXAMINATION: GENERAL: A well-developed, obese woman, lying in bed, not moving her left side. VITAL SIGNS: Pulse rate is 105, blood pressure is 122/86, respiratory rate 16. HEENT: Examination of head, ears, eyes, nose, mouth, and throat is basically intact. I do not see any bruises on the tongue. NECK: Supple. There is no tenderness. Carotids are +2. No bruits. LUNGS: Clear to auscultation. CARDIOVASCULAR: Heart tones distant. There is normal S1. The S2 is physiologically split. There is no S3, S4, murmurs, or rubs. ABDOMEN: Obese. Bowel sounds are decreased. There is no tenderness, masses, or organomegaly. BACK: Not tested. EXTREMITIES: Intact. NEUROLOGIC EXAMINATION: MENTAL STATUS: She is alert and awake. Judgment is not tested. Affect is pretty much blunted and flat. Memory, she did not know the exact year of her birthday; however, she thought she was born on [birth year]. Immediate recall, the patient had trouble repeating spelling, she 13:36 prune "pron." Recent recall is 0. Intellect, similarities are concrete, i.e., cat and dog have 4 legs. Orientation - date, she knew it is 01/14, did not know the year. Place, she knew where she was. Person, she is oriented to person. Language function, spoken speech is basically fluent except for the repetition problem. There is some right-left confusion touching her right ear with her right thumb when she was supposed to touch the left ear with the right thumb. She spelled world spelling it backwards "DOL," she could not do any further. CRANIAL NERVE EXAMINATION: CRANIAL NERVE II: Visual valera, OD, were constricted. Visual valera, OS, were absent and there was no light perception. CRANIAL NERVES III, IV, AND : Extraocular motility was pretty much full except she has had "I see things." CRANIAL NERVE V: There is decreased fine touch on the left side of the face extending past the midline. CRANIAL NERVE VII: Appeared to be decreased left nasolabial fold and smile. CRANIAL NERVE VIII: Auditory acuity was decreased on the left side. CRANIAL NERVES IX AND X: Not tested. CRANIAL NERVE XI: Sternocleidomastoid strength is probably 5/5. CRANIAL NERVE XII: Tongue protruded partially in the midline, but not fully. MUSCLE EXAMINATION: Muscle bulk is normal. Tone is decreased on the left side and flaccid. It is decreased on the right side as well. Strength, she could not move her left arm or left leg at all. Strength on the right side was probably 5/5. REFLEXES: Trace to +1 in the upper extremities, +1 right knee, difficult to get left knee, 0 ankles bilaterally with downgoing toe on the right side. Indefinite toe sign on the left. COORDINATION: Cyzryn-ru-enmu was intact on the right. Ufre-dw-gnzh testing was intact with the right leg. She could not do zwovah-py-fkqs or qaaf-ze-enof testing on the left side during this examination. The patient had complete absence of proprioception to her left hip and left shoulder. Pinprick and fine touch were absent on the left thigh and decreased to absent on the left body, which nearly split the midline. IMPRESSION: This is a difficult case. There is a strong sense that this patient has possible seizure disorder, although she also may have hysterical conversion reaction. She said she had a stroke in the past, cysticercosis, but there is no evidence on her MRI scan of the brain or CT scan of . The patient may or may not have had telemetry . She is a little vague in detail. It would be nice if we can get her medical records when she was here last year. Patient's seizures are twice a day for years with at least one normal EEG. The normal EEG does not rule out a seizure disorder, but with daily seizures, I would expect the EEG to be normal in most cases. I will obtain another EEG awake and asleep with photic stimulation. As far as treatment is concerned, she should probably call her psychiatrist, Dr. Sheppard, at [phone] and see what he thinks about her case. I will also obtain the [facility] medical records. As far as treatment is concerned, I am going to increase her Lamictal to 3 a day. The patient hysterical conversion reaction. The patient has really constricted visual valera on the right, which is usually seen in patients with a hysterical conversion reaction, so can be due to other diseases. The mental status exam is significantly abnormal. She does not know the year she was born, which is unusual. The patient's Zyprexa and Lexapro can also lower the seizure threshold along with coffee. If the patient has not had telemetry, then it might be a good idea to get telemetry on this patient at [facility] or [facility]. PLAN: 1. EEG awake and asleep. 2. Lamictal 25 mg in the a.m., 50 mg at night. 3. Try to obtain the medical records. Thank you for this interesting case. Troy Mendez MD DR: DAVON JOB#: [id number] CC:
--- NOTE | 2020-01-16 07:20 | NUR ---
NURSE NOTES: Received report from ANA Torres. Received patient lying in hospital bed, AAO x 4, able to make needs known, bedbound with L greater than R sided weakness. Patient is on RA in no apparent respiratory distress. Continent x 2, LBM on 01/15/20. Pt has slight swelling of L arm, skin intact otherwise. Pt has decreased appetite. Reported to have two seizure episodes yesterday. Side rails are padded for precaution. Pt has report of 01/18 pain d/t headache. R hand 24g pIV in place. Bed in lowest position, locked, and side rails up x 2. Will administer pain medication for pain. Will continue POC.
[2020-01-16 08:00] VITALS: BP 113/60
[2020-01-16] MEDS: TraZODone 100mg tab ORAL SCH ×4 (08:51→21:00)
[2020-01-16] MEDS: LORazepam Inj 2mg/ml 1ml IV PRN ×2 (08:51→21:23)
--- NOTE | 2020-01-16 09:24 | NUR ---
NURSE NOTES: behavioral health technician spoke to Dr. Mendez if he wanted to order EEG for this patient as he mentioned it on his notes. RN received order to enter EEG with awake/asleep to be done today. RN left message to [facility] with call back number.
--- NOTE | 2020-01-16 10:20 | NUR ---
RD ASSESSMENT & RECOMMENDATIONS SEE CARE ACTIVITY FOR COMPLETE ASSESSMENT DAILY ESTIMATED NEEDS: Needs based on cardiac 63.5kg awb 25-30 kcals/kg 4665-8475 total kcals 1-1.2 g protein/kg 64-76 g total protein 25-30 mL/kg 3878-6297 total fluid mLs NUTRITION DIAGNOSIS: Decreased sodium needs r/t cardiac history as evidenced by h/o CVA, with elev BP (151/129 on adm) CURRENT DIET:Regular PO DIET RECOMMENDATIONS: LOW NA DIET/ texture per FORKLIFT DRIVER ADDITIONAL RECOMMENDATIONS: * Maintain calibrated bed scale wts * Diet recs as above/ rec FORKLIFT DRIVER eval for appropriate texture * HGA1C for eval .
[2020-01-16 12:00] VITALS: BP 105/62
--- NOTE | 2020-01-16 13:00 | General Progress Note ---
Subjective HEENT: Reports: no symptoms Allergies: Coded Allergies: VALPROIC ACID (Verified Allergy, Severe, Rash, 12/30/16) Dairy (Verified Allergy, Unknown, 12/23/15) LEVETIRACETAM (Verified Allergy, Unknown, 12/28/16) PHENYTOIN (Verified Allergy, Unknown, 12/28/16) Whole Milk (Verified Allergy, Unknown, 12/23/15) Objective Last 24 Hour Vital Signs Date Time Temp Pulse Resp B/P (MAP) Pulse Ox O2 Delivery O2 Flow Rate FiO2 01/16/20 12:00 99.6 99 18 105/62 (76) 94 01/16/20 09:21 99 18 113/60 95 01/16/20 09:00 Room Air 01/16/20 08:51 99 18 113/60 95 01/16/20 08:00 97.7 99 18 113/60 (77) 95 01/16/20 04:00 97.2 103 17 112/71 (85) 95 01/16/20 00:00 97.9 110 22 110/92 (98) 93 01/15/20 21:23 97.0 01/15/20 21:00 Room Air 01/15/20 20:00 97.9 98 21 150/91 (110) 94 01/15/20 17:15 105 16 123/86 92 01/15/20 16:45 105 16 123/86 92 01/15/20 16:00 97.0 105 18 123/86 (98) 94 Intake and Output 01/15/20 01/16/20 19:00 07:00 Intake Total 300 ml Balance 300 ml Intake Oral 300 ml # Voids 5 2 Height (Feet): 5 Height (Inches): 6.00 Weight (Pounds): 199 General Appearance: alert EENT: PERRL/EOMI Neck: non-tender Cardiovascular: normal rate Respiratory/Chest: lungs clear Abdomen: soft, no mass Extremities: non-tender Assessment/Plan Assessment/Plan: seizure cysticercosis migraine over wt cont current tx neuro consult Jose Smith MD Jan 16, 2020 13:00
--- NOTE | 2020-01-16 15:08 | NUR ---
CASE MANAGEMENT:REVIEW SI;SEIZURE DISORDER. CYSTICERCOSIS. 99.6 110 18 113/60 94% ON RA IS;LAMICTAL PO TRAZODONE PO TID KLONOPIN PO QD MED SURG STATUS DCP;FROM HOME PLAN; EEG
--- NOTE | 2020-01-16 15:37 | NUR ---
NURSE NOTES: Pt has c/o headache at 9/10, throbbing pain. Per patient, she does not want Motrin for the pain as it is ineffective. Patient only has Ativan PRN available. Paged Dr. Mendez. Awaiting response. Will continue to f/u.
[2020-01-16 16:00] VITALS: BP 97/68
[2020-01-16] MEDS ORDERED: Morphine Sulfate 2mg/ml Inj(IV/IM USE ONLY) IVP PRN (16:00)
--- NOTE | 2020-01-16 16:10 | NUR ---
NURSE NOTES: RN attempted to insert new IV access as old one on R hand infiltrated. Pt had seizure episode x 1 for 30 seconds today at 1630 as RN was trying to insert a new IV access. Patient assessed and no injuries were noted. Pt continues to have c/o pain at 9/[address] Smith notified. Received order to modify route for morphine. Order read back and verified. Will carry out.
[2020-01-16] MEDS: HYDROcodone/Acetamin 5/325 tab ORAL PRN (16:34)
[2020-01-16] MEDS: Morphine Sulfate 2mg/ml Inj(IV/IM USE ONLY) IM PRN (17:49)
--- NOTE | 2020-01-16 19:25 | NUR ---
NURSE HAND-OFF: Important Events on Shift: Patient had seizure today for 30 seconds; EEG at bedside at this time; pt received Ativan x 1, Morphine x 1, and Napoleon x 1 for headache and seizure; new IV access on R hand; Patient Status: monitor for seizures Diet: Regular Pending Orders: n/a Pending Results/Labs: EEG results Pending MD notification: n/a Latest Vital Signs: Temperature 98.9 , Pulse 80 , B/P 97 /68 , Respiratory Rate 18 , O2 SAT 94 , Room Air, O2 Flow Rate . Vital Sign Comment: continue to monitor Latest Peña Fall Score: 80 Fall Risk: High Risk Safety Measures: Call light Within Reach, Bed Alarm Zone 1, Side Rails Side Rails x2, Bed position Low and Locked. Fall Precautions: Report given to ANA Torres. Endorsed IV Ativan push after EEG.
--- NOTE | 2020-01-16 19:30 | NUR ---
NURSE NOTES: Received report from Yeyo PEREZ. Pt. is in bed, awake, alert and verbally responsive. Denies any pain at this time. Breathing even and unlabored. Call light is within reach. With bed in it's lowest position, with alarm on and locked; with pads applied on rails. Awaiting for explosive technician to come. Will continue to monitor.
[2020-01-16 20:00] VITALS: BP 104/56
[2020-01-17] VITALS: BP 109/63
--- NOTE | 2020-01-17 00:15 | Consultation ---
DATE OF CONSULTATION: 01/17/2020 This is a 44-year-old female with a history of CVA, seizure disorder, who recently fell and hit her head, was brought into the hospital for medical stabilization. The patient has a history of seizure disorder as well as panic disorder, psychotic disorder, who has been on Ativan and Zyprexa. PAST MEDICAL HISTORY: Significant for seizure, ovarian cancer, , endometriosis, cerebrovascular accident. ALLERGIES: Phenytoin, valproic acid, and . SUBSTANCE ABUSE HISTORY: Not significant. MENTAL STATUS EXAMINATION: The patient is awake, oriented to self, place, situation. Mood is irritable and anxious. Affect is blunted, congruent with mood. Thought process is concrete. Thought content, there is no suicidal or homicidal ideation. Cognition is impaired. Insight and judgment impaired. ASSESSMENT: [place] I Anxiety disorder. Panic disorder. [place] II Deferred. [place] III Seizure. [place] IV Low [place] V 20 PLAN: 1. We will continue the Zyprexa. 2. Decrease the Lexapro to 20 mg in the morning. 3. Provide the patient with reality orientation. Dahlia Stack M.D. DR: NORA JOB#: [id number] CC:
--- NOTE | 2020-01-17 01:16 | NUR ---
EEG result was normal. All due meds given. Able to sleep at long intervals. Able to void freely. Turned and repositioned for comfort and circulation. Monitorted closely for seizure. Encourage to call if she has an aura and pt. verbalized understanding. Vital signs stable at this time. Will continue to monitor pt.
[2020-01-17 04:00] VITALS: BP 122/71
--- NOTE | 2020-01-17 07:28 | General Progress Note ---
Subjective Constitutional: Denies: no symptoms, chills, diaphoresis, fever, malaise, weakness, other HEENT: Denies: no symptoms, eye pain, blurred vision, tearing, double vision, ear pain, ear discharge, nose pain, nose congestion, throat pain, throat swelling, mouth pain, mouth swelling, other Cardiovascular: Denies: no symptoms, chest pain, edema, irregular heart rate, lightheadedness, palpitations, syncope, other Respiratory: Denies: no symptoms, cough, orthopnea, shortness of breath, SOB with excertion, SOB at rest, sputum, stridor, wheezing, other Gastrointestinal/Abdominal: Denies: no symptoms, abdomen distended, abdominal pain, black stools, tarry stools, blood in stool, constipated, diarrhea, difficulty swallowing, nausea, poor appetite, poor fluid intake, rectal bleeding, vomiting, other Genitourinary: Denies: no symptoms, burning, discharge, frequency, flank pain, hematuria, incontinence, pain, urgency, other Neurologic/Psychiatric: Denies: no symptoms, anxiety, depressed, emotional problems, headache, numbness, paresthesia, pre-existing deficit, seizure, tingling, tremors, weakness, other Endocrine: Denies: no symptoms, excessive sweating, flushing, intolerance to cold, intolerance to heat, increased hunger, increased thirst, increased urine, unexplained weight gain, unexplained weight loss, other Allergies: Coded Allergies: VALPROIC ACID (Verified Allergy, Severe, Rash, 12/30/16) Dairy (Verified Allergy, Unknown, 12/23/15) LEVETIRACETAM (Verified Allergy, Unknown, 12/28/16) PHENYTOIN (Verified Allergy, Unknown, 12/28/16) Whole Milk (Verified Allergy, Unknown, 12/23/15) Subjective 01/16 per patient without seizures since yesterday, seen by neuro, dw rn Objective Last 24 Hour Vital Signs Date Time Temp Pulse Resp B/P (MAP) Pulse Ox O2 Delivery O2 Flow Rate FiO2 01/17/20 04:00 97.1 85 16 122/71 (88) 95 01/17/20 00:00 98.3 83 19 109/63 (78) 95 01/16/20 21:53 85 17 106/65 95 01/16/20 21:23 82 17 104/56 95 01/16/20 21:00 Room Air 10/7/20 20:00 97.9 86 17 104/56 (72) 95 01/16/20 16:00 98.9 80 18 97/68 (78) 94 01/16/20 12:00 99.6 99 18 105/62 (76) 94 01/16/20 09:21 99 18 113/60 95 01/16/20 09:00 Room Air 01/16/20 08:51 99 18 113/60 95 01/16/20 08:00 97.7 99 18 113/60 (77) 95 Intake and Output 01/16/20 01/17/20 18:59 06:59 Intake Total 1000 ml 600 ml Balance 1000 ml 600 ml Intake Oral 1000 ml 600 ml # Voids 4 3 Height (Feet): 5 Height (Inches): 6.00 Weight (Pounds): 199 Objective General Appearance: alert EENT: PERRL/EOMI Neck: non-tender Cardiovascular: normal rate Respiratory/Chest: lungs clear Abdomen: soft, no mass Extremities: non-tender Assessment/Plan Assessment/Plan: Assessment/Plan Assessment/Plan: seizure cysticercosis migraine over wt cont current tx neuro consult recs reviewed labs ordered Dhaval Colon MD Jan 17, 2020 07:27
--- NOTE | 2020-01-17 07:36 | NUR ---
NURSE HAND-OFF: Important Events on Shift:seizure mngt. and observation Patient Status: awake, alert Diet: reg. Pending Orders: Pending Results/Labs: Pending MD notification: Latest Vital Signs: Temperature 97.1 , Pulse 85 , B/P 122 /71 , Respiratory Rate 16 , O2 SAT 95 , Room Air, O2 Flow Rate . Vital Sign Comment: Latest Peña Fall Score: 80 Fall Risk: High Risk Safety Measures: Call light Within Reach, Bed Alarm Zone 1, Side Rails Side Rails x2, Bed position Low and Locked. Fall Precautions: Report given to Cinthia DELVALLE .
--- NOTE | 2020-01-17 07:55 | NUR ---
NURSE NOTES: Patient awake and alert and oriented,respirations unlabored.patient sitting up in bed and eating breakfast.Bed aalrm on,call light within reach.
[2020-01-17 08:00] VITALS: BP 107/73
--- NOTE | 2020-01-17 08:28 | NUR ---
CASE MANAGEMENT: REVIEW SI: SEIZURE T 97.1 HR 85 RR 16 BP 104/56 SAT 95% ROOM AIR IS: LAMICTAL PO QD ATIVAN IV Q6HR PRN NEURO CONSULT EEG AWAKE AND ASLEEP MED/SURG STATUS DCP: PATIENT IS FROM HOME
[2020-01-17] MEDS: TraZODone 100mg tab ORAL SCH ×4 (08:52→20:28)
[2020-01-17] MEDS: Morphine Sulfate 2mg/ml Inj(IV/IM USE ONLY) IM PRN ×2 (09:06→17:13)
--- NOTE | 2020-01-17 09:25 | NUR ---
PT EVALUATION NOTE Patient seen for initial evaluation. Patient presents with L hemiparesis and impaired functional mobility. Patient requires mod assist for bed mobility and demonstrates fair sitting balance. Patient c/o headache rated at 10/10 and increasing dizziness in sitting; transfers deferred. Patient will benefit from skilled inpatient PT intervention to improve postural stability for wheelchair/bed transfers and balance. Recommend discharge to ARU/SNF for continued rehab vs home with home PT once medically cleared by MD. Recommend wheelchair for home use, patient states she has a wheelchair at home that is broken. Addendum: 01/17/20 at 1245 by BRINA HERNADEZ PT Amended: Links added.
--- NOTE | 2020-01-17 10:13 | General Progress Note ---
Subjective Date patient seen: Jan 17, 2020 Constitutional: Reports: no symptoms Allergies: Coded Allergies: VALPROIC ACID (Verified Allergy, Severe, Rash, 12/30/16) Dairy (Verified Allergy, Unknown, 12/23/15) LEVETIRACETAM (Verified Allergy, Unknown, 12/28/16) PHENYTOIN (Verified Allergy, Unknown, 12/28/16) Whole Milk (Verified Allergy, Unknown, 12/23/15) Subjective weak, bed ridden depressed Objective Last 24 Hour Vital Signs Date Time Temp Pulse Resp B/P (MAP) Pulse Ox O2 Delivery O2 Flow Rate FiO2 01/17/20 08:00 98.2 72 16 107/73 (84) 94 01/17/20 04:00 97.1 85 16 122/71 (88) 95 01/17/20 00:00 98.3 83 19 109/63 (78) 95 01/16/20 21:53 85 17 106/65 95 01/16/20 21:23 82 17 104/56 95 01/16/20 21:00 Room Air 01/16/20 20:00 97.9 86 17 104/56 (72) 95 01/16/20 16:00 98.9 80 18 97/68 (78) 94 01/16/20 12:00 99.6 99 18 105/62 (76) 94 Intake and Output 01/16/20 01/17/20 18:59 06:59 Intake Total 1000 ml 600 ml Balance 1000 ml 600 ml Intake Oral 1000 ml 600 ml # Voids 4 3 Height (Feet): 5 Height (Inches): 6.00 Weight (Pounds): 199 EENT: PERRL/EOMI Neck: supple Cardiovascular: regular rhythm Respiratory/Chest: normal breath sounds Abdomen: non tender, soft Neurologic: foundry process engineer II-XII grossly normal, other - lt hemipresis Assessment/Plan Assessment/Plan: seizure lt hemipresis cysticercosis migraine over wt cont current tx dw neuro and pt Jose Rider MD Jan 17, 2020 10:13
[2020-01-17 12:00] VITALS: BP 110/52
[2020-01-17] MEDS: HYDROcodone/Acetamin 5/325 tab ORAL PRN (13:32)
--- NOTE | 2020-01-17 14:16 | NUR ---
*-*DISCHARGE PLANNING*-* PATIENT HAS BEEN REFERRED TO: [facility] P: [phone]
[2020-01-17] MEDS: LORazepam Inj 2mg/ml 1ml IV PRN (15:48)
--- NOTE | 2020-01-17 16:10 | NUR ---
CHARGE NURSE NOTE: 1539 - patient was experienced seizures 30 sec. After that became non responsive. 1545 : rapid response was called. Vital signs normal. BP 125/69, hr 64, sato2 96%room air, rr 16. blood sugar 108. When RR came pt woke up, was responsive. notified, he asked to call who is covering . notified by primary nurse Cinthia. wants to transfer patient to [facility] under care of neurologist .
--- NOTE | 2020-01-17 16:22 | NUR ---
*-*DISCHARGE PLANNING*-* PATIENT HAS BEEN REFERRED TO: [facility] P: [phone] S/W MARY ANN, WILL CALL BACK AFTER REVIEW.
--- NOTE | 2020-01-17 16:50 | NUR ---
CASE MANAGEMENT:REVIEW 01/17/20 SI: SEIZURES. CYSTICERCOSIS 97.1 85 16 122/71 95% ON RA IS: LAMICTAL PO QD LEXAPRO PO BID ZYPREXA PO QHS NORCO PO Q4HRS OPRN KLONOPIN PO QHS TRAZODONE PO QID : MED/SURG STATUS 4 EAST PLAN: ORDER TO TRANSFER TO HIGHER LEVEL OF CARE
--- NOTE | 2020-01-17 16:52 | NUR ---
*-*DISCHARGE PLANNING*-* PATIENT HAS BEEN REFERRED TO: [facility] P: [phone] S/W MARY ANN, WILL CALL BACK AFTER RECEIVE AUTHORIZATION.
--- NOTE | 2020-01-17 17:04 | NUR ---
TRANSFER UPDATE ORDER NOTED TO TRANSFER TO [facility] UNDER DR VICTOR (CHANGED FROM [facility]) CALLED [facility] AND SPOKE WITH JOHN WHO STATED NO PHYSICIAN HAS CALLED TO PLACE PATIENT ON THE LIST FOR TRANSFER. UNTIL A PHYSICIAN CALLS WE CANNOT MOVE FORWARD WITH THIS TRANSFER [facility] T: [phone]
--- NOTE | 2020-01-17 17:40 | NUR ---
INSURANCE [employer]INICALS/REVIEW FAXED TO [facility] [phone]
--- NOTE | 2020-01-17 18:00 | NUR ---
NURSE NOTES: Patient sitting up in bed and eating dinner,patient alert and oriented,bed alarm on,call light within reach.
--- NOTE | 2020-01-17 18:45 | Electroencephalogram ---
DATE OF PROCEDURE: 01/16/2020 REQUESTING PHYSICIAN: Troy Mendez M.D. HISTORY: This EEG was performed on a 44-year-old lady with a history of a seizure disorder, who was noted to have recurrent seizures. The purpose of this EEG was to evaluate the patient for ongoing ictal or interictal phenomena. TECHNICAL NOTE: This EEG was performed on a [employer] with electrodes placed on the scalp according to the International 10-20 system. [id number] and ttpcm-rh-laz montages were used. The EEG was technically satisfactory and was performed in the awake and drowsy states. OBSERVATIONS: In the best awake state, the background activity consisted of 8-8.5 Hz alpha activity. Drowsiness was characterized by dissolution of the alpha rhythm and the appearance of slower frequencies in the 5-6 Hz theta range. No focal abnormalities or epileptiform discharges were seen. IMPRESSION: Normal awake and drowsy EEG. COMMENT: A normal EEG does not rule out a seizure disorder. Enrique Cox M.D., M.S.P.H. Clinical Neurophysiologist DR: NATHAN JOB#: [id number]
--- NOTE | 2020-01-17 19:35 | NUR ---
NURSE HAND-OFF: Saul RN Important Events on Shift:[ seizure x1 today Patient Status: []alert and oriented Diet: [Regular] Pending Orders: [] Pending Results/Labs:[] Pending MD notification:[] Latest Vital Signs: Temperature 97.7 , Pulse 97 , B/P 117 /71 , Respiratory Rate 18 , O2 SAT 96 , Room Air, O2 Flow Rate . Vital Sign Comment: [] Latest Peña Fall Score: 80 Fall Risk: High Risk Safety Measures: Call light Within Reach, Bed Alarm Zone 1, Side Rails Side Rails x2, Bed position Low and Locked. Fall Precautions: y Report given to [].
--- NOTE | 2020-01-17 19:41 | NUR ---
NURSE NOTES: Received report from Cinthia PEREZ.The patient is alert and oriented x4 and does not seem to be in any acute distress at this time. The Resp is even and unlabored and she is very cooperative with her care. Seizure precaution implemented as indicated. The patient has a R. hand 24g saline log that is patent and asymptomatic. The bed in low and locked level, siderails upx2 and call light within easy reach.Will continue to monitor
[2020-01-17 20:00] VITALS: BP 117/71
[2020-01-17 20:33] LABS: PHOSPHORUS 3.7 MG/DL (2.5-4.9)
[2020-01-18] VITALS: BP 109/61
[2020-01-18] MEDS: Morphine Sulfate 2mg/ml Inj(IV/IM USE ONLY) IM PRN ×2 (01:43→11:00)
--- NOTE | 2020-01-18 02:49 | NUR ---
NURSE NOTES: The patient remained alert and stable with no seizure activity noted at this time. Earlier she complained of pain and was given her PRN morphine sulfate well tolerated.Will continue to monitor
[2020-01-18 04:00] VITALS: BP 121/75
[2020-01-18 07:05] LABS: BASOPHILS % (AUTO) 1.7 % (0.0-2.0); EOSINOPHILS % (AUTO) 6.2 % (0.0-3.0); HEMATOCRIT 43.1 % (37.0-47.0); HEMOGLOBIN 14.5 G/DL (12.0-16.0); LYMPHOCYTES % (AUTO) 25.7 % (20.0-45.0); MEAN CORPUSCULAR VOLUME 89 FL (80-99); MONOCYTES % (AUTO) 4.7 % (1.0-10.0); NEUTROPHILS % (AUTO) 61.8 % (45.0-75.0); PLATELET COUNT 162 K/UL (150-450); RED BLOOD COUNT 4.85 M/UL (4.20-5.40); RED CELL DISTRIBUTION WIDTH 12.8 % (11.6-14.8); WHITE BLOOD COUNT 6.2 K/UL (4.8-10.8)
[2020-01-18 07:18] LABS: ANION GAP 6 mmol/L (5-15); BLOOD UREA NITROGEN 17 mg/dL (7-18); CALCIUM 8.4 MG/DL (8.5-10.1); CARBON DIOXIDE 26 MMOL/L (21-32); CHLORIDE 106 MMOL/L (98-107); POTASSIUM 4.5 MMOL/L (3.5-5.1); SODIUM 138 MMOL/L (136-145)
--- NOTE | 2020-01-18 07:31 | NUR ---
HAND-OFF: Report given to Cinthia PEREZ.
--- NOTE | 2020-01-18 07:55 | NUR ---
NURSE NOTES: Patient awake and alert and oriented,respiration unlabored.Patient states he is feeling a little better.Breakfast at bedside.Bed alarm is on,call light within reach.
[2020-01-18 08:00] VITALS: BP 97/55
--- NOTE | 2020-01-18 08:32 | General Progress Note ---
Subjective HEENT: Denies: no symptoms, eye pain, blurred vision, tearing, double vision, ear pain, ear discharge, nose pain, nose congestion, throat pain, throat swelling, mouth pain, mouth swelling, other Cardiovascular: Denies: no symptoms, chest pain, edema, irregular heart rate, lightheadedness, palpitations, syncope, other Respiratory: Denies: no symptoms, cough, orthopnea, shortness of breath, SOB with excertion, SOB at rest, sputum, stridor, wheezing, other Gastrointestinal/Abdominal: Denies: no symptoms, abdomen distended, abdominal pain, black stools, tarry stools, blood in stool, constipated, diarrhea, difficulty swallowing, nausea, poor appetite, poor fluid intake, rectal bleeding, vomiting, other Genitourinary: Denies: no symptoms, burning, discharge, frequency, flank pain, hematuria, incontinence, pain, urgency, other Neurologic/Psychiatric: Denies: no symptoms, anxiety, depressed, emotional problems, headache, numbness, paresthesia, pre-existing deficit, seizure, tingling, tremors, weakness, other Endocrine: Denies: no symptoms, excessive sweating, flushing, intolerance to cold, intolerance to heat, increased hunger, increased thirst, increased urine, unexplained weight gain, unexplained weight loss, other Hematologic/Lymphatic: Denies: no symptoms, anemia, easy bleeding, easy bruising, other Allergies: Coded Allergies: VALPROIC ACID (Verified Allergy, Severe, Rash, 12/30/16) Dairy (Verified Allergy, Unknown, 12/23/15) LEVETIRACETAM (Verified Allergy, Unknown, 12/28/16) PHENYTOIN (Verified Allergy, Unknown, 12/28/16) Whole Milk (Verified Allergy, Unknown, 12/23/15) Subjective 01/16 per patient without seizures since yesterday, seen by neuro, garo barba 01/17 labs reviewed, seen by neuro, likely with pseudoseizure, meds noted, potential transfer to higher level of care to [facility], have gar[facility] Objective Last 24 Hour Vital Signs Date Time Temp Pulse Resp B/P (MAP) Pulse Ox O2 Delivery O2 Flow Rate FiO2 01/18/20 04:00 98.3 57 18 121/75 (90) 94 01/18/20 00:00 98.2 69 18 109/61 (77) 97 01/17/20 21:00 Room Air 01/17/20 20:00 97.7 97 18 117/71 (86) 96 01/17/20 17:09 64 18 125/69 96 01/17/20 15:48 64 18 125/69 96 01/17/20 12:00 98.1 76 18 110/52 (71) 95 01/17/20 09:00 Room Air Intake and Output 01/17/20 01/18/20 19:00 07:00 Intake Total 960 ml 650 ml Output Total 600 ml Balance 960 ml 50 ml Intake Oral 960 ml 650 ml Output Urine Total 600 ml # Voids 3 5 Laboratory Tests 01/17/20 15:42: POC Whole Blood Glucose 108H 01/17/20 19:45: Phosphorus Level 3.7, Magnesium Level 2.0 01/18/20 06:20: White Blood Count 6.2, Red Blood Count 4.85, Hemoglobin 14.5, Hematocrit 43.1, Mean Corpuscular Volume 89, Mean Corpuscular Hemoglobin 30.0, Mean Corpuscular Hemoglobin Concent 33.8, Red Cell Distribution Width 12.8, Platelet Count 162, Mean Platelet Volume 5.3L, Neutrophils (%) (Auto) 61.8, Lymphocytes (%) (Auto) 25.7, Monocytes (%) (Auto) 4.7, Eosinophils (%) (Auto) 6.2H, Basophils (%) (Auto) 1.7, Sodium Level 138, Potassium Level 4.5, Chloride Level 106, Carbon Dioxide Level 26, Anion Gap 6, Blood Urea Nitrogen 17, Creatinine 1.0, Estimat Glomerular Filtration Rate > 60, Glucose Level 84, Calcium Level 8.4L Height (Feet): 5 Height (Inches): 6.00 Weight (Pounds): 199 Objective General Appearance: alert EENT: PERRL/EOMI Neck: non-tender Cardiovascular: normal rate Respiratory/Chest: lungs clear Abdomen: soft, no mass Extremities: non-tender Assessment/Plan Assessment/Plan: Assessment/Plan Assessment/Plan: seizure cysticercosis migraine over wt cont current tx neuro consult recs reviewed labs ordered --> pending transfer potentially to [facility], transfer to higher level of care Dhaval Colon MD Jan 18, 2020 08:31
[2020-01-18] MEDS: TraZODone 100mg tab ORAL SCH ×3 (08:44→18:00)
[2020-01-18] MEDS ORDERED: SUMAtriptan 50mg tab ORAL PRN (11:15)
[2020-01-18 12:00] VITALS: BP 136/75
--- NOTE | 2020-01-18 14:37 | NUR ---
*-*DISCHARGE PLANNING*-* PATIENT HAS BEEN REFERRED TO: [facility] P: [phone] S/W MARY ANN, UNABLE TO MEET ARU CRITERIA.
--- NOTE | 2020-01-18 14:40 | NUR ---
CHARGE NURSE NOTE; PT COMPLAINS THAT HER BACK IS ITCHING. BACK AREA HAS REDNESS. WAS CALLED, MESSAGE LEFT FOR BENADRYL ORDER.
--- NOTE | 2020-01-18 15:05 | NUR ---
CASE MANAGEMENT:REVIEW SI; SEIZURES. CYSTICERCOSIS. 98.3 93 20 97/55 94% ON RA IS;LAMOTRIGINE PO QD MORPHINE SULFATE IM Q6 PRN TRAZODONE PO QID ZYPREXA PO QD LEXAPRO PO QD MED SURG STATUS DCP;FROM HOME
[2020-01-18 16:00] VITALS: BP 131/63
--- NOTE | 2020-01-18 16:26 | NUR ---
NURSE NOTES: Patient complain of itching noted redness to patient left side of back under her left arm and under her left breast,and some redness to her buttocks rash like in apperance ,benadryl given as ordered.Will monitor.
--- NOTE | 2020-01-18 17:40 | NUR ---
[employer]URANCE [employer]IC[employer]/REVIEW FAXED TO [facility] [phone]
--- NOTE | 2020-01-18 18:00 | NUR ---
NURSE NOTES: Patient has a discharge order,patient wants to be discharge,patient has the left sided weakness,patient state she lives with her daughter and her daughter is at work,but she state she can have friend meet her at home.patient state she can go by Uber.Will notify Dr regarding her discharge.
--- NOTE | 2020-01-18 18:30 | NUR ---
NURSE NOTES: No seizure activity noted during the day,patient anticipating discharge to home .
--- NOTE | 2020-01-18 19:30 | NUR ---
NURSE NOTES: Received report from ANA Vicente. AAO x 4, on room air. L side weakness. Pt wants to be discharged to home. Received the DC order from Dr. Smith. Will follow discharge processing. Bed locked, lowest position, side rails padded, alarm on, call light within reach.
--- NOTE | 2020-01-18 19:35 | NUR ---
NURSE HAND-OFF: Sowmya PEREZ Important Events on Shift:[] Patient Status: [] Diet: [regular] Pending Orders: []Discharge order Pending Results/Labs:[] Pending MD notification:[] Latest Vital Signs: Temperature 97.5 , Pulse 81 , B/P 131 /63 , Respiratory Rate 20 , O2 SAT 99 , Room Air, O2 Flow Rate . Vital Sign Comment: [] Latest Peña Fall Score: 80 Fall Risk: High Risk y Safety Measures: Call light Within Reach, Bed Alarm Zone 1, Side Rails Side Rails x2, Bed position Low and Locked. Fall Precautions: y Report given to [].
[2020-01-18 20:00] VITALS: BP 129/72
--- NOTE | 2020-01-18 20:49 | NUR ---
NURSE NOTES: RN provided ambulance instruction to go home and convinced not to go home. Pt verbally understood but pt still refused x3. She said "My daughter will come @ 11 pm after work. I will take Uber and my friend will take me to home when I get there." Notified daughter for discharge. All documentation done and instruction given. All belongings sent with pt. IV access and ID band removed. Discharged with stable condition. Transport pt via wheelchair to downstairs and took Uber @ 2044.
--- NOTE | 2020-01-19 20:37 | Discharge Summary ---
Discharge Summary Discharge Summary _ DATE OF ADMISSION: 01/14/2020 DATE OF DISCHARGE: 01/18/2020 DISCHARGED BY: Dr. Lamont Smith CONSULTANTS: Dr. Dhaval Mendez BRIEF HOSPITAL COURSE: Patient is a 44-year-old female, with history of seizure and prior 3 CVA, was brought in by mom due to a seizure activity. Patient fell and hit her head. She has been feeling weak and numb on the left side of the body. Patient is unable to squeeze the left hand and move the left leg. She also had slurred speech. Upon evaluation at ED, blood work was unremarkable. Head CT showed age-related changes. No acute intracranial pathology. MRI of the brain did not show any acute infarction. There was a stable mild chronic increased T2 signal in the white matter. Patient was admitted for seizure disorder. Patient underwent neuro evaluation. Patient has an alleged history of cysticercosis, although no CT or MRI findings. Patient has hysterical co nversion reaction. She has constricted visual valera on the right. Mental status exam significantly abnormal. Patient was given Lamictal 25 mg in a.m. and 50 mg nightly. Psychiatric evaluation was done. Patient was diagnosed with anxiety disorder. She was continued on Zyprexa. Lexapro was decreased to 20 mg in a.m. EEG was normal. There was no recurrence of seizure. Patient was cleared for discharge home. FINAL DIAGNOSES: Seizure disorder Left hemiparesis Anxiety disorder Hysterical conversion reaction Migraine Overweight DISPOSITION: Patient was discharged home. DISCHARGE MEDICATIONS: Refer to Discharge Medication List. DISCHARGE INSTRUCTIONS: Follow-up in a week. I have been assigned to complete a discharge summary on this account, I was not involved with the patient's management.--EMILY Lewis Jacqueline Robles NP Jan 19, 2020 20:37
--- NOTE | 2020-01-19 22:27 | Psych Consult Progress Note ---
Psychiatry Progress Note Psychiatry Progress Note Subjective 01/18/20 Neurological/Psychiatric: Reports: anxiety, depressed, emotional problems; Denies: no symptoms, headache, numbness, paresthesia, pre-existing deficit, seizure, tingling, tremors, weakness, other Allergies: Coded Allergies: VALPROIC ACID (Verified Allergy, Severe, Rash, 12/30/16) Dairy (Verified Allergy, Unknown, 12/23/15) LEVETIRACETAM (Verified Allergy, Unknown, 12/28/16) PHENYTOIN (Verified Allergy, Unknown, 12/28/16) Whole Milk (Verified Allergy, Unknown, 12/23/15) Objective Data Height (Feet): 5 Height (Inches): 6.00 Weight (Pounds): 199 General Appearance: WD/WN, no apparent distress, alert Additional Comments: awake, oriented to self, place, situation. Mood is irritable and anxious. Affect is blunted, congruent with mood. Thought process is concrete. Thought content, there is no suicidal or homicidal ideation. Cognition is impaired. Insight and judgment impaired. ASSESSMENT: [place] I Anxiety disorder. Panic disorder. [place] II Deferred. [place] III Seizure. [place] IV Low [place] V 20 PLAN: 1. We will continue the Zyprexa. 2. Decrease the Lexapro to 20 mg in the morning. 3. Provide the patient with reality orientation. Dahlia Stack MD Jan 19, 2020 22:27
--- NOTE | 2020-01-20 13:18 | NUR ---
CASE MANAGEMENT: Faxed clinical info (face sheet /DC summary/ progress notes 01-19-20) to [facility] @ [phone]. T#[id number]
== END 2020-01-18 20:50 | disposition home or self-care (01) | DRG 53 ==
LOC: EMR 18:40 → 4E 21:36 → EDBEDREQ 21:46
DX: G40.909 Epilepsy, unspecified, not intractable, without status epilepticus (principal); E66.3 Overweight; Z68.32 Body mass index [BMI] 32.0-32.9, adult; B69.0 Cysticercosis of central nervous system; Z88.8 Allergy status to other drugs, medicaments and biological substances; F41.9 Anxiety disorder, unspecified; F44.9 Dissociative and conversion disorder, unspecified; I69.354 Hemiplegia and hemiparesis following cerebral infarction affecting left non-dominant side; F41.0 Panic disorder [episodic paroxysmal anxiety]; G44.89 Other headache syndrome; H54.62 Unqualified visual loss, left eye, normal vision right eye; Z85.43 Personal history of malignant neoplasm of ovary; Z90.710 Acquired absence of both cervix and uterus
CPT/HCPCS: 36415; 70450; 70551; 71045; 80048; 80053; 80307; 81003; 81025; 82550; 82962; 83735; 84100; 84484; 85025; 85610; 85730; 93005; 95819; 96374; 96375; 99285; G0480; J2765; U0002